=== PATIENT | female | born 1975 | race African-American/Black ===

== ENCOUNTER 2016-08-22 15:05 | Emergency (ER) | payer OTHER ==
[2016-08-22 15:19] VITALS: TEMP 98.2; BMI 46.7
[2016-08-22] MEDS ORDERED: predniSONE 20 MG TABLET (UD) PO ONE (17:13)
[2016-08-22] MEDS ORDERED: ALBUTEROL SO4 2.5/IPRATROPIUM 0.5 INH SOL 3 ML VIAL.NEB. NEB ONE (17:13)
--- NOTE | 2016-08-22 17:14 | PDOC ---
History of Present Illness - General History Source: Patient Exam Limitations: No Limitations - History of Present Illness Initial Comments: 08/22/16 17:21 Patient is a 41 year old female with a PMHx of Schizoaffective disorder who presents to the ED complaining of shortness of breath when she walks short distances associated with a productive cough with white sputum, rhinorrhea, and wheezing that began yesterday. Patient states today as she was going from the house to her car she felt extremely short of breath, which prompted this ED visit. Patient denies any history of asthma or COPD but does state that she has bronchitis almost every year around the winter season. She denies chest pain, palpitations, headache She denies fever, chills, nausea, vomiting She denies abdominal pain, diarrhea, constipation PMHx: Schizoaffective disorder PSHx: None Allergies: None Social: Denies alcohol use or drug use. (+) 6 cigarettes a day for 20+ years Family: (+) father-DMII PCP:Christopher Rutherford <[place] Downey - Last Filed: 08/22/16 17:50> <Valery Yoon - Last Filed: 08/22/16 18:40> - General Chief Complaint: Cold Symptoms Stated Complaint: SOB Time Seen by Provider: 08/22/16 16:24 Past History - Past Medical History Anemia: No Asthma: No Cancer: No Cardiac Disorders: No CVA: No COPD: No CHF: No Dementia: No Diabetes: No GI Disorders: No Disorders: No HTN: No Hypercholesterolemia: No Liver Disease: No Psychiatric Problems: Yes (depression/anxiety schioeffective disorder) Suicide Attempt (Hx): No Seizures: No Thyroid Disease: No - Reproductive History (#): 8 Para: 2 Cervical CA: No Dysfunctional Uterine Bleeding: No Ectopic : No Endometrial CA: No Polycystic Ovaries: No Therapeutic (s) & number: Yes (x4) Tubal Ligation: No Spontaneous : 2 - Immunization History Immunization Up to Date: No - Psycho/Social/Smoking Cessation Hx Anxiety: No Suicidal Ideation: No Smoking Status: Yes Smoking History: Current every day smoker Have you smoked in the past 12 months: Yes Number of Cigarettes Smoked Daily: 5 Information on smoking cessation initiated: No 'Breaking Loose' booklet given: 07/28/15 Hx Alcohol Use: No Drug/Substance Use Hx: No Substance Use Type: None <[place] - Last Filed: 08/22/16 17:50> <Valery Yoon - Last Filed: 08/22/16 18:40> - Past Medical History Allergies/Adverse Reactions: Allergies Allergy/AdvReac Type Severity Reaction Status Date / Time No Known Allergies Allergy Verified 08/22/16 15:16 Home Medications: Ambulatory Orders Aripiprazole [Abilify -] 15 mg PO HS 02/01/13 Fluphenazine HCl [Prolixin -] 5 mg PO HS 07/28/15 Albuterol Sulfate Inhaler - [Ventolin Hfa Inhaler -] 1 - 2 inh PO QID #1 inhaler 08/22/16 Methylprednisolone [Medrol Dose Shailesh] 4 mg PO ASDIR #21 tablet 08/22/16 Review of Systems - Review of Systems Constitutional: No: Chills, Diaphoresis, Fever, Night Sweats, Weakness HEENTM: No: Blurred Vision, Double Vision, Nose Congestion, Throat Pain Respiratory: Yes: Cough, Shortness of Breath, SOB with Exertion, Wheezing, Productive cough. No: Orthopnea, Hemoptysis Cardiac (ROS): No: Chest Pain, Edema, Lightheadedness, Palpitations, Syncope ABD/GI: No: Diarrhea, Nausea, Vomiting, Abdominal cramping : No: Burning, Dysuria, Discharge Musculoskeletal: No: Back Pain, Joint Pain Integumentary: No: Bruising, Erythema Neurological: No: Headache, Numbness, Paresthesia, Tingling, Dizziness Psychiatric: Yes: Emotional Problems Endocrine: No: Intolerance to Cold, Intolerance to Heat Hematologic/Lymphatic: Yes: Lymph Node Abnormalities. No: Anemia, Blood Clots <[place] Doweny - Last Filed: 08/22/16 17:50> *Physical Exam - Vital Signs Last Vital Signs Temp Pulse Resp BP Pulse Ox 98.2 F 94 H 20 135/81 98 08/22/16 15:16 08/22/16 15:16 08/22/16 15:16 08/22/16 15:16 08/22/16 15:16 - Physical Exam General Appearance: Yes: Obese, Other (awake, alert, and in no acute distress ) HEENT: positive: Pharynx Normal Neck: positive: Trachea midline, Normal Thyroid Respiratory/Chest: positive: Wheezing (bilateral lung bases ) Cardiovascular: positive: Regular Rhythm, Regular Rate, S1, S2. negative: Edema , JVD Gastrointestinal/Abdominal: positive: Normal Bowel Sounds. negative: Guarding, Rebound, Tenderness Extremity: positive: Normal Capillary Refill Integumentary: positive: Normal Color Neurologic: positive: Fully Oriented, Alert, Normal Mood/Affect, Normal Response , Motor Strength 5/5 <[place] Downey - Last Filed: 08/22/16 17:50> - Vital Signs Last Vital Signs Temp Pulse Resp BP Pulse Ox 98.2 F 94 H 20 135/81 98 08/22/16 15:16 08/22/16 15:16 08/22/16 15:16 08/22/16 15:16 08/22/16 15:16 <Valery Yoon - Last Filed: 08/22/16 18:40> ED Treatment Course - ADDITIONAL ORDERS Additional order review: Laboratory Results 08/22/16 16:39 Urine HCG, Qual Negative - RADIOLOGY Radiology Studies Ordered: Category Date Time Status CHEST PA & LAT [RAD] Stat Radiology 08/22/16 16:33 Ordered <[place] Downey - Last Filed: 08/22/16 17:50> - ADDITIONAL ORDERS Additional order review: Laboratory Results 08/22/16 16:39 Urine HCG, Qual Negative - Medications Given in the ED: ED Medications Discontinued Medications Generic Name Dose Route Start Last Admin Trade Name Freq PRN Reason Stop Dose Admin Albuterol/Ipratropium 3 amp 08/22/16 17:13 08/22/16 17:28 Duoneb - NEB 08/22/16 17:14 3 amp ONCE ONE Administration Prednisone 60 mg 08/22/16 17:13 08/22/16 17:28 Deltasone - PO 08/22/16 17:14 60 mg ONCE ONE Administration <Valery Yoon - Last Filed: 08/22/16 18:40> Medical Decision Making - Medical Decision Making 08/22/16 17:41 Patient is a 41 year old female with a PMHx of Schizoaffective disorder who presents to the ED complaining of shortness of breath worse on exertion, productive cough with white sputum, rhinorrhea, and wheezing. Differential diagnosis include but not limited to Asthma exacerbation, COPD exacerbation, Pneumonia, Influenza, URI. ED Course and Treatment -Influenza Swab -Chest x-ray -3 DuoNebs -Prednisone 60mg 08/22/16 17:50 -Patient had one DuoNeb treatment and a dose of prednisone and reports her symptoms are much better -Will give second amp of DuoNeb -Case endorsed to Dr. Yoon <[place] Downey - Last Filed: 08/22/16 17:50> *DC/Admit/Observation/Transfer <[place] Downey - Last Filed: 08/22/16 17:50> <Valery Yoon - Last Filed: 08/22/16 18:40> Diagnosis at time of Disposition: Asthma Qualifiers: Asthma severity: mild intermittent Asthma complication type: uncomplicated Qualified Code(s): J45.20 - Mild intermittent asthma, uncomplicated - Discharge Dispostion Disposition: HOME Condition at time of disposition: Stable - Prescriptions Prescriptions: Methylprednisolone [Medrol Dose Shailesh] 4 mg PO ASDIR #21 tablet Albuterol Sulfate Inhaler - [Ventolin Hfa Inhaler -] 1 - 2 inh PO QID #1 inhaler - Patient Instructions Printed Discharge Instructions: DI for Asthma -- Adult Additional Instructions: please picker your medications at [facility]
[2016-08-22 18:48] VITALS: BP 130/77; PULSE 91
== END 2016-08-22 18:48 | disposition home or self-care (01) ==
LOC: JER 15:05
PROC: 3E0F7GC Introduction of Other Therapeutic Substance into Respiratory Tract, Via Natural or Artificial Opening (ICD-10-PCS; principal; 2016-08-22)
DX: J45.20 Mild intermittent asthma, uncomplicated (principal)
CPT/HCPCS: 71020-TC; 84703; 94640; 99282-25

== ENCOUNTER 2018-05-18 22:13 | Emergency (ER) | payer OTHER ==
[2018-05-18 22:24] VITALS: BP 112/71; PULSE 79; TEMP 98.2; BMI 49.4
[2018-05-18] MEDS ORDERED: ALBUTEROL SO4 2.5/IPRATROPIUM 0.5 INH SOL 3 ML VIAL.NEB. NEB ONE (22:59)
--- NOTE | 2018-05-18 23:00 | PDOC ---
History of Present Illness - General Chief Complaint: Asthma Stated Complaint: ASTHMA Time Seen by Provider: 05/18/18 22:52 History Source: Patient Exam Limitations: No Limitations - History of Present Illness Initial Comments: 05/18/18 22:53 This is a 43 YOF with h/o bronchitis, asthma/COPD, and schizoaffective disorder p/w shortness of breath and productive cough for the past 3 days, worse tonight despite using Albuterol MDI and Symbicort MDI. She explains that her children were all sick with similar symptoms prior to her illness. She initially had a subjective fever 3 days ago but this resolved with Motrin and has not recurred. She additionally notes mild nausea and diarrhea, but denies headache, chest pain , abdominal pain, dysuria, rash, leg pain/swelling, or other symptoms. Past History - Past Medical History Allergies/Adverse Reactions: Allergies Allergy/AdvReac Type Severity Reaction Status Date / Time No Known Allergies Allergy Verified 05/18/18 22:24 Home Medications: Ambulatory Orders Aripiprazole [Abilify -] 15 mg PO HS 02/01/13 Fluphenazine HCl [Prolixin -] 5 mg PO HS 07/28/15 Albuterol Sulfate Inhaler - [Ventolin Hfa Inhaler -] 1 - 2 inh PO QID #1 inhaler 08/22/16 Methylprednisolone [Medrol Dose Shailesh] 4 mg PO ASDIR #21 tablet 08/22/16 Anemia: No Asthma: Yes Cancer: No Cardiac Disorders: No CVA: No COPD: No CHF: No Dementia: No Diabetes: Yes GI Disorders: No Disorders: No HTN: No Hypercholesterolemia: No Liver Disease: No Psychiatric Problems: Yes (depression/anxiety schioeffective disorder) Seizures: No Thyroid Disease: No - Reproductive History (#): 8 Para: 2 Cervical CA: No Dysfunctional Uterine Bleeding: No Ectopic : No Endometrial CA: No Polycystic Ovaries: No Therapeutic (s) & number: Yes (x4) Tubal Ligation: No Spontaneous : 2 - Immunization History Immunization Up to Date: No - Suicide/Smoking/Psychosocial Hx Smoking Status: Yes Smoking History: Current every day smoker Have you smoked in the past 12 months: Yes Number of Cigarettes Smoked Daily: 10 Information on smoking cessation initiated: No 'Breaking Loose' booklet given: 07/28/15 Hx Alcohol Use: No Drug/Substance Use Hx: No Substance Use Type: None Review of Systems - Review of Systems Able to Perform ROS?: Yes Constitutional: Yes: Fever (resolved). No: Chills, Unexplained wgt Loss HEENTM: No: Nose Congestion, Throat Pain Respiratory: Yes: Cough, Shortness of Breath, Wheezing, Productive cough Cardiac (ROS): Yes: Lightheadedness (mild). No: Chest Pain, Palpitations, Syncope ABD/GI: Yes: Diarrhea (mild), Nausea (mild). No: Constipated : No: Burning, Dysuria Musculoskeletal: No: Back Pain, Neck Pain Integumentary: No: Bruising, Rash Neurological: No: Headache, Numbness, Tingling, Weakness, Dizziness Endocrine: No: Unexplained Weight Gain, Unexplained Weight Loss *Physical Exam - Vital Signs Last Vital Signs Temp Pulse Resp BP Pulse Ox 98.2 F 79 18 112/71 97 05/18/18 22:21 05/18/18 22:21 05/18/18 22:21 05/18/18 22:21 05/18/18 22:21 05/18/18 23:10 GENERAL: nontoxic and well-appearing, nourished, A/Ox4, no acute distress, speaking in full sentences, answers questions appropriately, accompanied by adjunct physics instructor at bedside, occasional wet-sounding cough HEENT: PERRLA, EOMI, moist mucous membranes, no posterior pharyngeal erythema, no tonsillar swelling or exudates, no cervical lymphadenopathy NECK: No midline ttp, no spinal stepoff or deformity, full ROM, supple CARDIOVASCULAR: Regular rate and rhythm, normal S1S2, MGR, radial and DP pulses 2+ and symmetric, capillary refill <2 seconds, extremities warm and well- perfused Chest wall: Normal appearance, no rash, no bruising, no costal stepoff or deformity, nontender to compression LUNGS/RESPIRATORY: No respiratory distress, normal and symmetric chest movements during respirations, lungs with diffuse crackles that clear with coughing, slightly diminished breath sounds bilaterally, slight wheezes, equal breath sounds, no cyanosis, no nail clubbing GI/ABDOMEN: Normal symmetric appearance, normoactive bowel sounds, soft, no tenderness to palpation, no midline pulsatile masses, no palpated organomegaly EXTREMITIES: distal pulses 2+, warm and well-perfused, no LE edema SKIN: Warm and dry, no pallor, no jaundice, no bruising, no rash, no skin breakdown, no cuts, no lesions NEUROLOGICAL: CN II-XII grossly intact, ambulating with normal gait, moving all extremities, 5/5 strength proximally and distally, no facial droop, no decreased sensation Medical Decision Making - Medical Decision Making 05/18/18 23:21 Pt p/w SOB and cough. Exam: As noted in Physical Exam section. DDX IBNLT: bronchitis, COPD, asthma, PNA, CHF, other lung disease, viral URI, laryngitis, tracheitis, etc. W/U ordered: CXR EKG CBCD CMP Mg Phos Blood gas TX ordered: DuoNebs Decadron Azithromycin EKG: Reviewed; results as noted in ECG Review section. CXR: Labs: Reassessment: Repeat VS: DISCHARGE CURB-65 and PSI suggest the Pt may be appropriate for outpatient management. Workup is not concerning for emergency-level pathology at this time. The decision for disposition is carefully considered with the Pt in shared decision making. The Pt has gotten significant relief of symptoms while in the ED. They are appropriate for discharge with close outpatient follow up. The Pt is comfortable with this plan and will follow up with their primary care provider in 1-3 days. They will take Motrin and/or Tylenol for pain. Specific return precautions are discussed and they will come back to the ER if necessary. *DC/Admit/Observation/Transfer Diagnosis at time of Disposition: Bronchitis - Referrals Referrals: Christopher Rutherford MD [Primary Care Provider] - - Patient Instructions Printed Discharge Instructions: DI for Acute Bronchitis Additional Instructions: YOU WERE SEEN IN THE ER FOR BRONCHITIS. WE DID A CHEST X-RAY, AND THE RESULTS SUGGEST THAT YOU HAVE BRONCHITIS THAT NEEDS TO BE TREATED WITH ANTIBIOTICS. WE GAVE YOU MEDICATIONS FOR YOUR SYMPTOMS, AND A DOSE OF ANTIBIOTICS HERE IN THE ER. AFTER OUR ASSESSMENT, WE DO NOT BELIEVE YOU ARE HAVING A MEDICAL EMERGENCY AT THIS TIME, AND WE BELIEVE YOU ARE SAFE TO GO HOME. PLEASE IT SUPPORT CONSULTANT YOUR PRESCRIPTION FOR ANTIBIOTICS FROM YOUR PHARMACY AND TAKE THEM PRESCRIBED. PLEASE FOLLOW UP WITH YOUR PRIMARY CARE PROVIDER IN 1-3 DAYS. CALL THEIR CLINIC SOON POSSIBLE, TELL THEM YOU WERE SEEN IN THE ER FOR BRONCHITIS, AND TELL THEM YOU NEED AN APPOINTMENT. IF YOU HAVE ANY NEW OR WORSENING SYMPTOMS, PLEASE COME BACK TO THE ER AT ANY TIME (24 HOURS A DAY), ESPECIALLY FOR INABILITY TO BREATHE, WORSENING CHEST PAIN, FEVER, FAINTING, OR OTHER SYMPTOMS YOU CANNOT CONTROL WITH [id number] MEDICATIONS AND YOUR ANTIBIOTIC. IF YOU ARE HAVING SEVERE OR LIFE THREATENING SYMPTOMS, OR SYMPTOMS THAT MAKE IT UNSAFE TO DRIVE OR HAVE SOMEONE DRIVE YOU, PLEASE CALL 911. - Post Discharge Activity
--- NOTE | 2018-05-18 23:01 | PDOC ---
Attending Attestation - Resident Resident Name: Gregorio Arreguin - ED Attending Attestation I have performed the following: I have examined & evaluated the patient, The case was reviewed & discussed with the resident, I agree w/resident's findings & plan - HPI HPI: 05/19/18 00:18 The patient is a 43 year old female, with a significant past medical history of bronchitis, asthma, COPD, and schizoaffective disorder, who presents to the emergency department with, 3 days of worsening shortness of breath. She reports using Albuterol MDI and Symbicort MDI, without relief. Patient is positive for sick contacts (her children). She denies recent fevers, chills, headache or dizziness. She denies recent nausea, vomit, diarrhea or constipation. She denies recent dysuria, frequency, urgency or hematuria. She denies recent chest pain. Allergies: NKA Social history: 6 cigarettes a day for 20+ years. Denies EtOH use and recreational drug use. Primary Care Physician: Dr. Rutherford <Carlo Costa - Last Filed: 05/19/18 00:18> - Physicial Exam PE: 05/19/18 02:02 Agree with resident exam. Patient is in no distress and is speaking in complete sentences. + scattered wheezes at the bases on my exam with good air entry. - Medical Decision Making 05/19/18 02:03 Pt presents to the ED complaining of cough with fever that has now resolved and wheezing and shortness of breath that are consistent with prior episodes of bronchitis. REsolved in the ED after nebs and steroids. Will check CXR to evaluate for PNA and likely discharge if cxr is negative. <Marce Palacios - Last Filed: 05/19/18 02:06> Attestations - Attestations 05/19/18 00:18 Documentation prepared by Carlo Costa, acting as medical accounting clerk for Marce Palacios MD. <Carlo Costa - Last Filed: 05/19/18 00:18>
--- NOTE | 2018-05-19 01:02 | PDOC ---
*Physical Exam - Vital Signs Last Vital Signs Temp Pulse Resp BP Pulse Ox 98.2 F 79 18 112/71 97 05/18/18 22:21 05/18/18 22:21 05/18/18 22:21 05/18/18 22:21 05/18/18 22:21 ED Treatment Course - ADDITIONAL ORDERS Additional order review: Laboratory Results 05/19/18 00:22 Urine HCG, Qual Negative Medical Decision Making - Medical Decision Making 05/19/18 01:01 Pt with negative Urine test. To get CXR PA/Lat Pt to get duonebs as well 05/19/18 02:02 Will also give pt 40 mg PO prednisone 05/19/18 02:10 CXR with no acute pathology Pt feeling better after duonebs Pt to be discharged with prednisone 40 mg po x4 days. Pt to f/u with PCP within 1 week. To come back to ER if she has worsening of current symptoms or onset of new concerning symptoms. *DC/Admit/Observation/Transfer Diagnosis at time of Disposition: Bronchitis - Discharge Dispostion Disposition: HOME Condition at time of disposition: Stable Decision to Admit order: No - Referrals Referrals: Christopher Rutherford MD [Primary Care Provider] - - Patient Instructions Printed Discharge Instructions: Asthma -- Adult Additional Instructions: Follow up with your primary care physician within 1 week. Take your prednisone daily for 4 more days (40 mg per day). If you develop worsening of your current symptoms or new concerning symptoms come back to the ER. - Post Discharge Activity
[2018-05-19] MEDS ORDERED: ALBUTEROL SO4 2.5/IPRATROPIUM 0.5 INH SOL 3 ML VIAL.NEB. NEB ONE (01:06)
[2018-05-19] MEDS ORDERED: predniSONE 20 MG TABLET (UD) PO ONE (02:01)
== END 2018-05-19 02:38 | disposition home or self-care (01) ==
LOC: JER 22:13
PROC: 3E0F7GC Introduction of Other Therapeutic Substance into Respiratory Tract, Via Natural or Artificial Opening (ICD-10-PCS; principal; 2018-05-18)
DX: J40 Bronchitis, not specified as acute or chronic (principal); J45.909 Unspecified asthma, uncomplicated; J44.9 Chronic obstructive pulmonary disease, unspecified; F25.9 Schizoaffective disorder, unspecified
CPT/HCPCS: 71046-TC-FY; 84703; 94640; 99281-25; J7620

== ENCOUNTER 2019-01-31 12:27 | Emergency (ER) | payer OTHER ==
[2019-01-31 12:59] VITALS: TEMP 98.1; BMI 42.9
[2019-01-31] MEDS ORDERED: SODIUM CHLORIDE 1,000 ML IV STA (14:38)
[2019-01-31 15:54] LABS: BASO % 0.7 % (0-2.0); EOS % 1.5 % (0-4.5); HEMATOCRIT 40.3 % (32.4-45.2); HEMOGLOBIN 12.9 GM/dL (10.7-15.3); LYMPH % 27.8 % (8-40); MCH 27.5 pg (25.7-33.7); MCHC 32.1 g/dl (32.0-36.0); MEAN CELL VOLUME 85.7 fl (80-96); MEAN PLT VOLUME 7.7 fl (7.5-11.1); MONO % 5.7 % (3.8-10.2); NEUT % 64.3 % (42.8-82.8); PLATELET COUNT 354 K/MM3 (134-434); RDW 16.3 % (11.6-15.6); WHITE BLOOD COUNT 11.9 K/mm3 (4.0-10.0)
[2019-01-31 16:09] LABS: VENOUS PC02 40.7 mmHg (41-51); VENOUS PH 7.42 (7.31-7.41); VENOUS PO2 34.9 mmHg (30-40)
[2019-01-31 16:24] LABS: ALBUMIN 3.5 g/dl (3.4-5.0); ALK PHOS 110 U/L (45-117); ANION GAP 6 MMOL/L (8-16); BILIRUBIN,TOTAL 0.3 mg/dL (0.2-1); BLOOD UREA NITROGEN 8.6 mg/dL (7-18); CHLORIDE 103 mmol/L (98-107); CO2 27 mmol/L (21-32); POTASSIUM 4.3 mmol/L (3.5-5.1); SGOT/AST 14 U/L (15-37); SGPT/ALT 25 U/L (13-61); SODIUM 136 mmol/L (136-145)
[2019-01-31 16:29] LABS: GLUCOSE,RANDOM 349 mg/dL (74-106)
[2019-01-31 16:49] LABS: ACETONE SERUM NEGATIVE (NEGATIVE)
--- NOTE | 2019-01-31 16:56 | PDOC ---
History of Present Illness - General Chief Complaint: Blood Sugar Problem Stated Complaint: SENT BY PCP Time Seen by Provider: 01/31/19 14:35 History Source: Patient Exam Limitations: No Limitations - History of Present Illness Initial Comments: 01/31/19 15:00 43 y/o female presents presents to the ED for evaluation of elevated glucose. Patient was at her primary care's office and had a glucose reading of 438. Patient has no localized abdominal pain, increase in thirst, increased urination fever, chills urinary complaints or cough. Patient does state ran out of her metformin a few weeks ago and went there for a refill today but due to her elevated glucose was sent to the emergency room for further evaluation. Timing/Duration: unsure Associated Symptoms: reports: denies symptoms Past History - Travel Traveled outside of the country in the last 30 days: No Close contact w/someone who was outside of country & ill: No - Past Medical History Allergies/Adverse Reactions: Allergies Allergy/AdvReac Type Severity Reaction Status Date / Time No Known Allergies Allergy Verified 01/31/19 12:59 Home Medications: Ambulatory Orders Aripiprazole [Abilify -] 15 mg PO HS 02/01/13 Fluphenazine HCl [Prolixin -] 5 mg PO HS 07/28/15 Albuterol Sulfate Inhaler - [Ventolin Hfa Inhaler -] 1 - 2 inh PO QID PRN Metformin HCl [Glucophage] 500 mg PO BID #60 tablet 01/31/19 Anemia: No Asthma: Yes Cancer: No Cardiac Disorders: No CVA: No COPD: No CHF: No Dementia: No Diabetes: Yes GI Disorders: No Disorders: No HTN: No Hypercholesterolemia: No Liver Disease: No Psychiatric Problems: Yes (depression/anxiety schioeffective disorder) Seizures: No Thyroid Disease: No - Reproductive History (#): 8 Para: 2 Cervical CA: No Dysfunctional Uterine Bleeding: No Ectopic : No Endometrial CA: No Polycystic Ovaries: No Therapeutic (s) & number: Yes (x4) Tubal Ligation: No Spontaneous : 2 - Immunization History Immunization Up to Date: No - Suicide/Smoking/Psychosocial Hx Smoking Status: Yes Smoking History: Never smoked Have you smoked in the past 12 months: No Number of Cigarettes Smoked Daily: 10 Information on smoking cessation initiated: No 'Breaking Loose' booklet given: 07/28/15 Hx Alcohol Use: No Drug/Substance Use Hx: No Substance Use Type: None Patient Lives Alone: No Lives with/in: spouse/SO Review of Systems - Review of Systems Able to Perform ROS?: Yes Constitutional: No: Symptoms Reported HEENTM: No: Symptoms Reported Respiratory: No: Symptoms reported Cardiac (ROS): No: Symptoms Reported ABD/GI: No: Symptoms Reported : No: Symptoms Reported Musculoskeletal: No: Symptoms Reported Integumentary: No: Symptoms Reported Neurological: No: Symptoms reported Endocrine: No: Symptoms Reported *Physical Exam - Vital Signs Last Vital Signs Temp Pulse Resp BP Pulse Ox 98.1 F 80 18 119/74 96 01/31/19 12:56 01/31/19 12:56 01/31/19 12:56 01/31/19 12:56 01/31/19 12:56 - Physical Exam General Appearance: Yes: Nourished, Appropriately Dressed. No: Apparent Distress Neck: positive: Supple Respiratory/Chest: positive: Lungs Clear, Normal Breath Sounds. negative: Respiratory Distress, Accessory Muscle Use Cardiovascular: positive: Regular Rhythm, Regular Rate. negative: Murmur Gastrointestinal/Abdominal: positive: Soft. negative: Tenderness Integumentary: positive: Normal Color, Warm, Moist Neurologic: positive: Motor Strength 5/5 (ambulatory) ED Treatment Course - LABORATORY CBC & Chemistry Diagram: 01/31/19 15:36 01/31/19 15:36 - ADDITIONAL ORDERS Additional order review: Laboratory Results 01/31/19 01/31/19 15:53 15:36 VBG pH 7.42 H POC VBG pCO2 40.7 L POC VBG pO2 34.9 VBG HCO3 25.9 VBG O2 Sat (Farideh) 67.1 L VBG Base Excess 1.8 Sodium 136 Potassium 4.3 Chloride 103 Carbon Dioxide 27 Anion Gap 6 L BUN 8.6 Creatinine 1.0 Est GFR (CKD-EPI)AfAm 79.91 Est GFR (CKD-EPI)NonAf 68.95 Random Glucose 349 H* Calcium 9.0 Total Bilirubin 0.3 AST 14 L ALT 25 Alkaline Phosphatase 110 Total Protein 7.0 Albumin 3.5 Acetone, Qual Negative L 01/31/19 15:36 RBC 4.70 MCV 85.7 MCHC 32.1 RDW 16.3 H MPV 7.7 Neutrophils % 64.3 Lymphocytes % 27.8 D Monocytes % 5.7 Eosinophils % 1.5 Basophils % 0.7 Medical Decision Making - Medical Decision Making 01/31/19 15:58 CC:Sent From PCP for evaluation of elevated glucose and not being on her metformin for approximately 3 weeks Exam: Vital signs stable, no acute findings Plan: Labs, IV fluids, urine 01/31/19 16:59 Laboratory Tests 01/31/19 01/31/19 01/31/19 15:36 15:36 15:53 WBC 11.9 H Hgb 12.9 Hct 40.3 RDW 16.3 H Neutrophils % 64.3 VBG pH 7.42 H POC VBG pCO2 40.7 L POC VBG pO2 34.9 VBG HCO3 25.9 VBG O2 Sat (Farideh) 67.1 L VBG Base Excess 1.8 Sodium 136 Potassium 4.3 Chloride 103 Carbon Dioxide 27 Anion Gap 6 L BUN 8.6 Creatinine 1.0 Est GFR (CKD-EPI)AfAm 79.91 Est GFR (CKD-EPI)NonAf 68.95 Random Glucose 349 H* Calcium 9.0 Total Bilirubin 0.3 AST 14 L ALT 25 Alkaline Phosphatase 110 Total Protein 7.0 Albumin 3.5 Acetone, Qual Negative L *DC/Admit/Observation/Transfer Diagnosis at time of Disposition: Blood sugar increased - Discharge Dispostion Disposition: HOME - Prescriptions Prescriptions: Metformin HCl [Glucophage] 500 mg PO BID #60 tablet - Referrals Referrals: Christopher Rutherford MD [Primary Care Provider] - - Patient Instructions - Post Discharge Activity
[2019-01-31 17:20] LABS: URINE APPEARANCE CLEAR; URINE COLOR YELLOW
[2019-01-31 17:21] LABS: URINE BILIRUBIN NEGATIVE (NEGATIVE)
[2019-01-31 17:22] LABS: URINE GLUCOSE (UA) 3+ (NEGATIVE); URINE KETONE NEGATIVE (NEGATIVE)
[2019-01-31 17:23] LABS: PH,URINE 5.5 (5.0-8.0); URINE LEUK ESTERASE NEGATIVE (NEGATIVE); URINE NITRITE NEGATIVE (NEGATIVE); URINE PROTEIN NEGATIVE (NEGATIVE)
[2019-01-31 18:11] VITALS: BP 129/82; PULSE 67
== END 2019-01-31 18:11 | disposition home or self-care (01) ==
LOC: JER 12:27
PROC: 3E0337Z Introduction of Electrolytic and Water Balance Substance into Peripheral Vein, Percutaneous Approach (ICD-10-PCS; principal; 2019-01-31)
DX: E11.65 Type 2 diabetes mellitus with hyperglycemia (principal); Z79.84 Long term (current) use of oral hypoglycemic drugs; Z91.14 Patient's other noncompliance with medication regimen
CPT/HCPCS: 36415; 80053; 81003; 82009; 82803; 85025; 87086; 99283-25; J7030

== ENCOUNTER 2019-04-02 03:26 | Inpatient (IN) | payer OTHER ==
[2019-04-02] MEDS ORDERED: ALBUTEROL SO4 2.5/IPRATROPIUM 0.5 INH SOL 3 ML VIAL.NEB. NEB ONE ×6 (04:04→22:39)
--- NOTE | 2019-04-02 05:14 | PDOC ---
Attending Attestation - Resident Resident Name: Moreno Lopes - ED Attending Attestation I have performed the following: I have examined & evaluated the patient, The case was reviewed & discussed with the resident, I agree w/resident's findings & plan, Exceptions are as noted - HPI HPI: 04/02/19 05:31 44yo female with sob x 2 days. Pt follows with dr. rutherford, states congestion, cough, sob since february - but worsened over the last 2 days. States using her inhalers at home - bid usage of her albuterol pump without relief. Subjective fever at home. Pt states cough is nonproductive. Pt denies sore throat. States sick contacts at home - everyone has a URI at home. Pt denies abd pain. No n/v/ d. No dysuria. NO LE swelling. No recent travel. States her chest feels tight and she feels sob. - Physicial Exam PE: 04/02/19 05:33 Gen: aaox3, mild resp distress, mild tachypnea Heart: +s1s2 tachy lungs: wheezing b/l apices and diminished bs b/l bases abd: soft, nt/nd +bs ext: no c/c/e - Medical Decision Making 04/02/19 05:34 a/p: 44yo female with sob x 2 days -hx of RAD -given 1 neb upon arrival - feels better, but pulse ox 92% on 2L NC -pt does not wear o2 at home -last Dr. Rutherford appt was February where he ordered cxr and labs, which she did not have done -will send labs, ekg, cxr -will continue nebs -will add steroids -will eval for pna - though no course bs auscultated -will monitor and reassess 04/02/19 08:28 cxr clear 04/02/19 08:29 labs reviewed pt pulse ox still 91%ra ambulatory with a steady gait in the ED on 2L nc pulse ox 94-95% will need admission 04/02/19 09:[address] Forde who accepts pt to service requests pulse ox monitoring *DC/Admit/Observation/Transfer Diagnosis at time of Disposition: COPD exacerbation, Asthma exacerbation - Discharge Dispostion Condition at time of disposition: Guarded Decision to Admit order: Yes - Referrals Referrals: Christopher Rutherford MD [Primary Care Provider] - - Patient Instructions Printed Discharge Instructions: Serious Ways to Stop Smoking, Tips to Help You Stop Smoking, DI for Asthma -- Adult, DI for Chronic Obstructive Pulmonary Disease, Reasons to Quit Smoking - Post Discharge Activity Forms/Work/School Notes: Back to Work Heart Score/ECG Review - ECG Intrepretation Comment:: 04/02/19 05:39 sinus at 93, nl axis, nl interval, no acute st/t wave findings
--- NOTE | 2019-04-02 05:17 | PDOC ---
History of Present Illness - General Chief Complaint: Shortness of Breath Stated Complaint: DIFFICULTY BREATHING/ASTHMA Time Seen by Provider: 04/02/19 04:20 History Source: Patient - History of Present Illness Initial Comments: 04/02/19 05:44 Ms. Myrick is a 44 y/o woman with hx COPD, asthma, DM presenting with one day of worsening shortness of breath and dyspnea on exertion. She reports that her shortness of breath began yesterday, and reported onset of cough, rhinorrhea, sore throat, along with dyspnea on exertion. She reports becoming short of breath when walking from the door of her apartment to her car parked on the street in front, and reports that with exertion she feels chest tightness. She reports that normally her symbicort inhaler relieves any respiratory symptoms, but that it had no effect today. She reports that her symptoms today feel similar to her prior COPD exacerbations, and reports that her last azithromycin dose pack was two months ago. She reports that she has several sick contacts at home at the moment, with several people experiences URI symptoms including cough , rhinorrhea, sore throat. She denies any chest pain, fatigue, weakness, confusion, fevers, chills, nausea, vomiting. Past History - Past Medical History Allergies/Adverse Reactions: Allergies Allergy/AdvReac Type Severity Reaction Status Date / Time No Known Allergies Allergy Verified 04/02/19 04:12 Home Medications: Ambulatory Orders Aripiprazole [Abilify -] 15 mg PO HS 02/01/13 Fluphenazine HCl [Prolixin -] 5 mg PO HS 07/28/15 Albuterol Sulfate Inhaler - [Ventolin Hfa Inhaler -] 1 - 2 inh PO QID PRN Metformin HCl [Glucophage] 500 mg PO BID #60 tablet 01/31/19 Anemia: No Asthma: Yes Cancer: No Cardiac Disorders: No CVA: No COPD: No CHF: No Dementia: No Diabetes: Yes GI Disorders: No Disorders: No HTN: No Hypercholesterolemia: No Liver Disease: No Psychiatric Problems: Yes (depression/anxiety schioeffective disorder) Seizures: No Thyroid Disease: No - Reproductive History (#): 8 Para: 2 Cervical CA: No Dysfunctional Uterine Bleeding: No Ectopic : No Endometrial CA: No Polycystic Ovaries: No Therapeutic (s) & number: Yes (x4) Tubal Ligation: No Spontaneous : 2 - Immunization History Immunization Up to Date: No - Suicide/Smoking/Psychosocial Hx Smoking Status: Yes Smoking History: Never smoked Have you smoked in the past 12 months: No Number of Cigarettes Smoked Daily: 10 Information on smoking cessation initiated: No 'Breaking Loose' booklet given: 07/28/15 Hx Alcohol Use: Yes (Social) Drug/Substance Use Hx: No Substance Use Type: None *Physical Exam - Vital Signs Last Vital Signs Temp Pulse Resp BP Pulse Ox 98.4 F 102 H 22 H 135/82 96 04/02/19 03:26 04/02/19 03:26 04/02/19 03:26 04/02/19 03:26 04/02/19 03:26 *DC/Admit/Observation/Transfer - Discharge Dispostion Condition at time of disposition: Fair - Referrals Referrals: Christopher Rutherford MD [Primary Care Provider] - - Patient Instructions - Post Discharge Activity
[2019-04-02] MEDS ORDERED: MAGNESIUM SULF 50% (8.12 MEQ/2 ML-1 GM VIAL) IVPB ONE (05:27)
[2019-04-02] MEDS ORDERED: methylPREDNISolone NA SUCC 125 MG/2 ML VIAL IVPB ONE (05:27)
[2019-04-02] MEDS ORDERED: MAGNESIUM SULF 50% (8.12 MEQ/2 ML-1 GM VIAL) ONE (05:32)
[2019-04-02] MEDS ORDERED: methylPREDNISolone NA SUCC 125 MG/2 ML VIAL ONE (05:32)
[2019-04-02 06:16] LABS: BASO % 0.8 % (0-2.0); EOS % 1.4 % (0-4.5); HEMATOCRIT 35.7 % (32.4-45.2); HEMOGLOBIN 11.8 GM/dL (10.7-15.3); LYMPH % 23.4 % (8-40); MCH 28.3 pg (25.7-33.7); MEAN CELL VOLUME 85.6 fl (80-96); MEAN PLT VOLUME 7.3 fl (7.5-11.1); MONO % 5.4 % (3.8-10.2); PLATELET COUNT 387 K/MM3 (134-434); RBC 4.17 M/mm3 (3.60-5.2); RDW 16.8 % (11.6-15.6); WHITE BLOOD COUNT 10.5 K/mm3 (4.0-10.0)
[2019-04-02 06:44] LABS: ALBUMIN 3.4 g/dl (3.4-5.0); BILIRUBIN,TOTAL 0.2 mg/dL (0.2-1); BLOOD UREA NITROGEN 7.9 mg/dL (7-18); CALCIUM 9.3 mg/dL (8.5-10.1); CREATININE 0.9 mg/dL (0.55-1.3); POTASSIUM 4.1 mmol/L (3.5-5.1)
--- NOTE | 2019-04-02 07:14 | PDOC ---
ED Treatment Course - LABORATORY CBC & Chemistry Diagram: 04/02/19 06:00 04/02/19 06:00 - ADDITIONAL ORDERS Additional order review: Laboratory Results 04/02/19 04/02/19 04/02/19 06:00 06:00 06:00 Sodium 142 Potassium 4.1 Chloride 108 H Carbon Dioxide 28 Anion Gap 6 L BUN 7.9 Creatinine 0.9 Est GFR (CKD-EPI)AfAm 90.13 Est GFR (CKD-EPI)NonAf 77.76 Random Glucose 124 H Calcium 9.3 Total Bilirubin 0.2 AST 16 ALT 19 Alkaline Phosphatase 98 Creatine Kinase Troponin I B-Natriuretic Peptide 18.3 Total Protein 7.0 Albumin 3.4 Serum , Qual Negative 04/02/19 06:00 Sodium Potassium Chloride Carbon Dioxide Anion Gap BUN Creatinine Est GFR (CKD-EPI)AfAm Est GFR (CKD-EPI)NonAf Random Glucose Calcium Total Bilirubin AST ALT Alkaline Phosphatase Creatine Kinase 148 Troponin I < 0.02 B-Natriuretic Peptide Total Protein Albumin Serum , Qual 04/02/19 06:00 RBC 4.17 MCV 85.6 MCHC 33.0 RDW 16.8 H MPV 7.3 L Neutrophils % 69.0 Lymphocytes % 23.4 Monocytes % 5.4 Eosinophils % 1.4 Basophils % 0.8 - Medications Given in the ED: ED Medications Discontinued Medications Generic Name Dose Route Start Last Admin Trade Name Freq PRN Reason Stop Dose Admin Albuterol/Ipratropium 1 amp 04/02/19 05:27 04/02/19 05:30 Duoneb - NEB 04/02/19 05:28 1 amp ONCE ONE Administration Albuterol/Ipratropium 1 amp 04/02/19 05:27 04/02/19 05:43 Duoneb - NEB 04/02/19 05:28 1 amp ONCE ONE Administration Magnesium Sulfate 1 gm 04/02/19 05:27 04/02/19 06:17 Magnesium Sulfate IVPB 04/02/19 05:28 1 gm ONCE ONE Administration Methylprednisolone Sodium Succinate 125 mg 04/02/19 05:27 04/02/19 06:04 Solu-Medrol - IVPB 04/02/19 05:28 125 mg ONCE ONE Administration Medical Decision Making - Medical Decision Making Pt signed out to me by Dr. Lopes, PGY1 EM Night Resident. 44 year old female with PMH COPD, asthma, DM presented to ED for increasing SOB since yesterday associated with nonproductive cough, rhinorrhea, sore throat. Wheezing on prior auscultation. Initial Vital Signs Temp Pulse Resp BP Pulse Ox 98.4 F 102 H 22 H 135/82 96 04/02/19 03:26 04/02/19 03:26 04/02/19 03:26 04/02/19 03:26 04/02/19 03:26 Afebrile. Mild tachycardia. Mild tachypnea. Mild hypertension. No hypoxia on room air. Medications given: Duoneb, solumedrol Imaging pending: CXR EKG performed at 0338: rate 93, regular rhythm, normal axis, normal intervals, no acute ST changes. CBC WBC 10.5 K/mm3 (4.0-10.0) H 04/02/19 06:00 RBC 4.17 M/mm3 (3.60-5.2) 04/02/19 06:00 Hgb 11.8 GM/dL (10.7-15.3) 04/02/19 06:00 Hct 35.7 % (32.4-45.2) 04/02/19 06:00 MCV 85.6 fl (80-96) 04/02/19 06:00 MCH 28.3 pg (25.7-33.7) 04/02/19 06:00 MCHC 33.0 g/dl (32.0-36.0) 04/02/19 06:00 RDW 16.8 % (11.6-15.6) H 04/02/19 06:00 Plt Count 387 K/MM3 (134-434) 04/02/19 06:00 MPV 7.3 fl (7.5-11.1) L 04/02/19 06:00 Absolute Neuts (auto) 7.2 K/mm3 (1.5-8.0) 04/02/19 06:00 Neutrophils % 69.0 % (42.8-82.8) 04/02/19 06:00 Lymphocytes % 23.4 % (8-40) 04/02/19 06:00 Monocytes % 5.4 % (3.8-10.2) 04/02/19 06:00 Eosinophils % 1.4 % (0-4.5) 04/02/19 06:00 Basophils % 0.8 % (0-2.0) 04/02/19 06:00 Nucleated RBC % 0 % (0-0) 04/02/19 06:00 Mild leukocytosis without left shift. No anemia. CMP Sodium 142 mmol/L (136-145) 04/02/19 06:00 Potassium 4.1 mmol/L (3.5-5.1) 04/02/19 06:00 Chloride 108 mmol/L (98-107) H 04/02/19 06:00 Carbon Dioxide 28 mmol/L (21-32) 04/02/19 06:00 Anion Gap 6 MMOL/L (8-16) L 04/02/19 06:00 BUN 7.9 mg/dL (7-18) 04/02/19 06:00 Creatinine 0.9 mg/dL (0.55-1.3) 04/02/19 06:00 Est GFR (CKD-EPI)AfAm 90.13 04/02/19 06:00 Est GFR (CKD-EPI)NonAf 77.76 04/02/19 06:00 Random Glucose 124 mg/dL (74-106) H 04/02/19 06:00 Calcium 9.3 mg/dL (8.5-10.1) 04/02/19 06:00 Total Bilirubin 0.2 mg/dL (0.2-1) 04/02/19 06:00 AST 16 U/L (15-37) 04/02/19 06:00 ALT 19 U/L (13-61) 04/02/19 06:00 Alkaline Phosphatase 98 U/L (45-117) 04/02/19 06:00 Creatine Kinase 148 U/L (26-192) 04/02/19 06:00 Troponin I < 0.02 ng/ml (0.00-0.05) 04/02/19 06:00 B-Natriuretic Peptide 18.3 pg/ml (5-125) 04/02/19 06:00 Total Protein 7.0 g/dl (6.4-8.2) 04/02/19 06:00 Albumin 3.4 g/dl (3.4-5.0) 04/02/19 06:00 Serum , Qual Negative 04/02/19 06:00 No electrolyte abnormalities. No JENIFER. No transaminitis. BNP wnl Troponin undetectable 04/02/19 07:27 Pt assessed, reported SOB much improved, pt was able to sleep comfortably. 04/02/19 08:16 Pt reassessed, sleeping comfortably, reported she feels her breathing is still improved. Pending CXR. 04/02/19 08:33 CXR negative for infiltrate per my and Dr. Morales's read. -Pending official report 04/02/19 08:49 Hypoxia still present on room air. Pt to be admitted for asthma/COPD exacerbation. Medications ordered: Azithromycin 04/02/19 08:52 Official CXR report: Name: [facility] DEPARTMENT OF RADIOLOGY Phys: Anitha Morales DO : 1975 Age: 44 Sex: F [facility] Acct: [id number] Loc: [facility] [address] [facility] Exam Date: 04/02/19 Status: [place] [address] Unit Number: [id number] EXAM#: TYPE/EXAM: RESULT: [id number] RAD/CHEST PA LAT Cough. Chest 2 views. Comparison study May 19, 2018. Mild rotation to the left side. Unremarkable contour of the cardiomediastinal silhouette. The lungs are well aerated without evidence of pulmonary infiltrates atelectasis. No evidence of vascular congestive changes. No bulky hilar adenopathy. No pleural effusion, or pneumothorax is seen. The visualized osseous structures appear intact. Impression. No evidence of active pulmonary disease. Reported By: Luis Anne MD 04/02/19 0846 Pt informed of vitals, and need for admission for COPD/Asthma exacerbation. Pt agrees with plan for care. Dr. Christopher Rutherford paged. 04/02/19 09:32 Dr. Morales spoke with Marisol Forde, who will assume care for the patient. Pending admission. *DC/Admit/Observation/Transfer Diagnosis at time of Disposition: COPD exacerbation, Asthma exacerbation - Discharge Dispostion Condition at time of disposition: Guarded Decision to Admit order: Yes - Referrals Referrals: Christopher Rutherford MD [Primary Care Provider] - - Patient Instructions Printed Discharge Instructions: Serious Ways to Stop Smoking, Tips to Help You Stop Smoking, DI for Asthma -- Adult, DI for Chronic Obstructive Pulmonary Disease, Reasons to Quit Smoking - Post Discharge Activity Forms/Work/School Notes: Back to Work
[2019-04-02] MEDS ORDERED: ALBUTEROL SO4 0.5 % INH SOLN 2.5 MG/0.5 ML VIAL.NEB. NEB ONE (08:44)
[2019-04-02] MEDS ORDERED: AZITHROMYCIN IVPB 500 MG in DEXTROSE 5%-WATER - 250 ML IVPB ONE (08:44)
--- NOTE | 2019-04-02 10:18 | HP ---
Admitting History and Physical - Primary Care Physician PCP: Christopher Rutherford - Admission Chief Complaint: SOB History of Present Illness: ER HISTORY 04/02/19 05:31 44yo female with sob x 2 days. Pt follows with dr. rutherford, states congestion, cough, sob since february - but worsened over the last 2 days. States using her inhalers at home - bid usage of her albuterol pump without relief. Subjective fever at home. Pt states cough is nonproductive. Pt denies sore throat. States sick contacts at home - everyone has a URI at home. Pt denies abd pain. No n/v/ d. No dysuria. NO LE swelling. No recent travel. States her chest feels tight and she feels sob. Spoke with ER attending Examined pt in ER-- had a few days h/o sob and cough with tightness in chest Her father was sick at home She is chronic smoker as well Uses inhalers but had no relief She received nebulizer treatments, Solu-medrol and IV Zithromax States she feels slightly better History Source: Patient Limitations to Obtaining History: No Limitations - Past Medical History ...LMP: 03/14/16 Psych: Yes: Depression Endocrine: Yes: Diabetes Mellitus - Smoking History Smoking history: Never smoked Have you smoked in the past 12 months: No Aproximately how many cigarettes per day: 10 - Alcohol/Substance Use Hx Alcohol Use: Yes (Social) Home Medications - Allergies Allergies/Adverse Reactions: Allergies Allergy/AdvReac Type Severity Reaction Status Date / Time No Known Allergies Allergy Verified 04/02/19 04:12 - Home Medications Home Medications: Ambulatory Orders Aripiprazole [Abilify -] 15 mg PO HS 02/01/13 Fluphenazine HCl [Prolixin -] 5 mg PO HS 07/28/15 Albuterol Sulfate Inhaler - [Ventolin Hfa Inhaler -] 1 - 2 inh PO QID PRN Metformin HCl [Glucophage] 500 mg PO BID #60 tablet 01/31/19 Family Disease History - Family Disease History Family History: Denies Review of Systems - Review of Systems Constitutional: reports: Chills, Fever (subjective fever, chills) Respiratory: reports: Cough, SOB, Wheezing Physical Examination Vital Signs: Vital Signs Temperature 98.4 F 04/02/19 03:26 Pulse Rate 102 H 04/02/19 03:26 Respiratory Rate 22 H 04/02/19 03:26 Blood Pressure 135/82 04/02/19 03:26 O2 Sat by Pulse Oximetry (%) 94 L 04/02/19 04:30 Constitutional: Yes: No Distress, Calm Cardiovascular: Yes: Regular Rate and Rhythm Respiratory: Yes: Diminished, Rhonchi Gastrointestinal: Yes: Normal Bowel Sounds, Soft, Abdomen, Obese. No: Tenderness Edema: No Neurological: Yes: WNL Labs: CBC, BMP 04/02/19 06:00 04/02/19 06:00 Imaging - Results Chest X-ray: Image Reviewed EKG: Image Reviewed Problem List - Problems (1) Diabetes Code(s): E11.9 - TYPE 2 DIABETES MELLITUS WITHOUT COMPLICATIONS (2) Asthma exacerbation Code(s): J45.901 - UNSPECIFIED ASTHMA WITH (ACUTE) EXACERBATION (3) COPD exacerbation Code(s): J44.1 - CHRONIC OBSTRUCTIVE PULMONARY DISEASE W (ACUTE) EXACERBATION (4) Reactive airway disease Code(s): J45.909 - UNSPECIFIED ASTHMA, UNCOMPLICATED Qualifiers: Asthma severity: mild intermittent Asthma complication type: with acute exacerbation Qualified Code(s): J45.21 - Mild intermittent asthma with (acute ) exacerbation Assessment/Plan PLAN Solumedrol nebs Pulmonary eval continue with meds Peak flow measurement will need outpt PFT DVT prophylaxis-- Lovenox sc OOB daily iv Zithromax
[2019-04-02] MEDS ORDERED: ALBUTEROL SO4 2.5/IPRATROPIUM 0.5 INH SOL 3 ML VIAL.NEB. NEB PRN (10:19)
[2019-04-02] MEDS: PANTOPRAZOLE 40 MG TABLET (FP) PO SCH (12:30)
[2019-04-02] MEDS: INSULIN SLIDING SCALE (NOVOLOG) 1 VIAL SQ SCH ×3 (12:30→23:00)
--- NOTE | 2019-04-02 15:25 | CON.PULM ---
Consult Consult Specialty:: PULMONARY Referred by:: Dr Forde Reason for Consultation:: shortness of breath - History of Present Illness Chief Complaint: shortness of breath History of Present Illness: 44yo female with h/o asthma, DM, smoker who was admitted with worsening shortness of breath x 2 days. Reports a nonproductive cough, wheezing and chest tightness. Multiple sick contacts at home. Denies fevesr but with chills. Diagnosed with asthma as child but not hospitalized since childhood and never intubated. Unknown peak flow. She is a current smoker, about 1/2 PPD, started as teenager. - History Source History Provided By: Patient, Medical Record Limitations to Obtaining History: No Limitations - Past Medical History ...LMP: 03/14/16 Psych: Yes: Depression Endocrine: Yes: Diabetes Mellitus - Alcohol/Substance Use Hx Alcohol Use: Yes (Social) - Smoking History Smoking history: Never smoked Have you smoked in the past 12 months: No Aproximately how many cigarettes per day: 10 Home Medications - Allergies Allergies/Adverse Reactions: Allergies Allergy/AdvReac Type Severity Reaction Status Date / Time No Known Allergies Allergy Verified 04/02/19 04:12 - Home Medications Home Medications: Ambulatory Orders Aripiprazole [Abilify -] 15 mg PO HS 02/01/13 Fluphenazine HCl [Prolixin -] 5 mg PO HS 07/28/15 Albuterol Sulfate Inhaler - [Ventolin Hfa Inhaler -] 1 - 2 inh PO QID PRN Metformin HCl [Glucophage] 500 mg PO BID #60 tablet 01/31/19 Review of Systems - Review of Systems Constitutional: reports: Chills, Malaise, Weakness. denies: Fever Eyes: denies: Recent Change in Vision HENT: denies: Nasal Congestion, Throat Pain Neck: denies: Stiffness, Tenderness Cardiovascular: reports: Shortness of Breath. denies: Chest Pain, Palpitations Respiratory: reports: Cough, Exercise Intolerance, SOB on Exertion, Wheezing. denies: Hemoptysis Gastrointestinal: denies: Abdominal Pain, Nausea, Vomiting Genitourinary: denies: Dysuria, Hematuria Neurological: denies: Dizziness, Headache Endocrine: denies: Unexplained Weight Loss Physical Exam Vital Sings: Vital Signs Temperature 98.4 F 04/02/19 08:50 Pulse Rate 85 04/02/19 08:50 Respiratory Rate 20 08/20/19 08:50 Blood Pressure 126/76 04/02/19 08:50 O2 Sat by Pulse Oximetry (%) 94 L 04/02/19 08:50 Constitutional: Yes: Mild Distress Eyes: Yes: Conjunctiva Clear, EOM Intact HENT: Yes: Atraumatic, Normocephalic Neck: Yes: Supple, Trachea Midline Cardiovascular: Yes: Regular Rate and Rhythm Respiratory: Yes: Rhonchi, Wheezes ...Clubbing: No Gastrointestinal: Yes: Normal Bowel Sounds, Soft. No: Tenderness Edema: No Neurological: Yes: Alert, Oriented Labs: CBC, BMP 04/02/19 06:00 04/02/19 06:00 Imaging - Results Chest X-ray: Report Reviewed, Image Reviewed (no infiltrates) Problem List - Problems (1) Asthma exacerbation Code(s): J45.901 - UNSPECIFIED ASTHMA WITH (ACUTE) EXACERBATION (2) COPD exacerbation Code(s): J44.1 - CHRONIC OBSTRUCTIVE PULMONARY DISEASE W (ACUTE) EXACERBATION (3) Diabetes Code(s): E11.9 - TYPE 2 DIABETES MELLITUS WITHOUT COMPLICATIONS Assessment/Plan Acute Asthma/COPD Exacerbation URI DM Smoker - IV medrol - inhaled bronchodilators standing and PRN - O2 to keep SpO2 >90% - monitor peak flow - singulair - outpt PFTs - smoking cessation - glucose control while on systemic steroids - DVT prophylaxis Thank you for this consult Mauro Wilkinson MD
[2019-04-02] MEDS ORDERED: ALBUTEROL SO4 0.083% IH SOL 2.5 MG/3 ML VIAL.NEB. NEB PRN (15:26)
--- NOTE | 2019-04-02 16:05 | EKG ---
Test Reason : Blood Pressure : / mmHG Vent. Rate : 093 BPM Atrial Rate : 093 BPM P-R Int : 154 ms QRS Dur : 088 ms QT Int : 360 ms P-R-T Axes : 077 078 072 degrees QTc Int : 447 ms NORMAL SINUS RHYTHM NORMAL ECG NO PREVIOUS ECGS AVAILABLE Confirmed by MD PIERRE, AKUA ([id number]) on 04/02/2019 4:05:00 PM Referred By: Confirmed By:AKUA JAY MD
[2019-04-02] MEDS: methylPREDNISolone NA SUCC 40 MG/1 ML VIAL IVPUSH SCH ×2 (17:30→23:00)
[2019-04-02] MEDS: ALBUTEROL SO4 2.5/IPRATROPIUM 0.5 INH SOL 3 ML VIAL.NEB. NEB SCH ×2 (17:30→23:00)
[2019-04-02] MEDS: metFORMIN HCL 500 MG TABLET (FP) PO SCH (17:30)
[2019-04-02] MEDS: NICOTINE 14 MG/24 HOURS TOPICAL PATCH TD SCH (20:10)
[2019-04-02] MEDS ORDERED: MONTELUKAST NA 10 MG TABLET ONE (22:39)
[2019-04-02] MEDS ORDERED: methylPREDNISolone NA SUCC 40 MG/1 ML VIAL ONE (22:40)
[2019-04-02] MEDS ORDERED: ARIPiprazole 5 MG TABLET (FP) ONE (22:40)
[2019-04-02] MEDS: MONTELUKAST NA 10 MG TABLET PO SCH (23:00)
[2019-04-02] MEDS: ARIPiprazole 15 MG TABLET PO SCH (23:00)
[2019-04-03] MEDS: NICOTINE 14 MG/24 HOURS TOPICAL PATCH TD SCH ×2 (03:13→11:51)
[2019-04-03] MEDS ORDERED: MELATONIN 5 MG TABLETS PO ONE (05:00)
[2019-04-03] MEDS: metFORMIN HCL 500 MG TABLET (FP) PO SCH ×2 (06:00→17:07)
[2019-04-03] MEDS: INSULIN SLIDING SCALE (NOVOLOG) 1 VIAL SQ SCH ×4 (06:00→22:39)
[2019-04-03] MEDS: methylPREDNISolone NA SUCC 40 MG/1 ML VIAL IVPUSH SCH ×4 (06:00→20:36)
[2019-04-03 08:43] LABS: BASO % 0.2 % (0-2.0); HEMOGLOBIN 11.7 GM/dL (10.7-15.3); LYMPH % 7.9 % (8-40); MCH 27.9 pg (25.7-33.7); MCHC 32.6 g/dl (32.0-36.0); MEAN CELL VOLUME 85.7 fl (80-96); MEAN PLT VOLUME 7.6 fl (7.5-11.1); MONO % 2.6 % (3.8-10.2); NEUT % 89.3 % (42.8-82.8); PLATELET COUNT 425 K/MM3 (134-434); RDW 17.2 % (11.6-15.6); WHITE BLOOD COUNT 18.6 K/mm3 (4.0-10.0)
[2019-04-03 09:09] LABS: ALBUMIN 3.5 g/dl (3.4-5.0); BILIRUBIN,TOTAL 0.1 mg/dL (0.2-1); BLOOD UREA NITROGEN 10.9 mg/dL (7-18); CALCIUM 9.1 mg/dL (8.5-10.1); POTASSIUM 4.4 mmol/L (3.5-5.1); TOT PROT 7.2 g/dl (6.4-8.2)
--- NOTE | 2019-04-03 10:01 | PN ---
Progress Note (short form) - Note Progress Note: Breathing is better but she does get SOB when she ambulates no chest pain has cough with mucus+ Vital Signs - 24 hr 04/02/19 04/02/19 04/03/19 17:24 17:57 06:46 Temperature 97.4 F L 97.5 F L Pulse Rate Pulse Rate [ 104 H 53 L 59 L Apical] Respiratory 14 16 Rate Blood Pressure Blood Pressure 109/82 124/63 128/68 [Right Arm] O2 Sat by Pulse 93 L 95 98 Oximetry (%) 04/03/19 09:26 Temperature 98 F Pulse Rate 96 H Pulse Rate [ Apical] Respiratory 22 H Rate Blood Pressure 125/68 Blood Pressure [Right Arm] O2 Sat by Pulse Oximetry (%) Current Medications Generic Name Dose Route Start Last Admin Trade Name Freq PRN Reason Stop Dose Admin Albuterol Sulfate 1 amp 04/02/19 15:26 Ventolin 0.083% Nebulizer Soln - NEB Q4H PRN SHORT OF BREATH/WHEEZING Albuterol/Ipratropium 1 amp 04/02/19 16:00 04/02/19 23:00 Duoneb - NEB 1 amp RQID LOWELL Administration Aripiprazole 15 mg 04/02/19 22:00 04/02/19 23:00 Abilify PO 15 mg HS LOWELL Administration Enoxaparin Sodium 40 mg 04/03/19 10:00 Lovenox - SQ DAILY LOWELL Fluphenazine HCl 5 mg 04/02/19 22:00 04/02/19 23:00 Prolixin - PO 5 mg HS LOWELL Administration Azithromycin 500 mg in 250 mls @ 250 mls/hr 04/03/19 10:00 Zithromax 500mg Ivpb (Pre-Docked) IVPB DAILY LOWELL Insulin Aspart 1 vial 04/02/19 11:00 04/03/19 06:00 Novolog Vial Sliding Scale - SQ 10 unit ACHS LOWELL Administration Protocol Insulin Detemir 12 units 04/03/19 10:00 Levemir Vial SQ BID LOWELL Metformin HCl 500 mg 04/02/19 16:30 04/03/19 06:00 Glucophage - PO 500 mg BIDI LOWELL Administration Methylprednisolone Sodium Succinate 60 mg 04/02/19 15:00 04/03/19 06:00 Solu-Medrol - IVPUSH 60 mg Q6H-IV LOWELL Administration Montelukast Sodium 10 mg 08/20/19 22:00 04/02/19 23:00 Singulair - PO 10 mg HS LOWELL Administration Nicotine 14 mg 04/02/19 10:30 04/03/19 03:13 Nicoderm Patch - TD 14 mg DAILY LOWELL Administration Pantoprazole Sodium 40 mg 04/02/19 10:30 04/02/19 12:30 Protonix - PO 40 mg DAILY LOWELL Administration Laboratory Results - last 24 hr 04/02/19 04/02/19 04/02/19 12:00 17:18 23:35 WBC RBC Hgb Hct MCV MCH MCHC RDW Plt Count MPV Absolute Neuts (auto) Neutrophils % Lymphocytes % Monocytes % Eosinophils % Basophils % Nucleated RBC % Sodium Potassium Chloride Carbon Dioxide Anion Gap BUN Creatinine Est GFR (CKD-EPI)AfAm Est GFR (CKD-EPI)NonAf POC Glucometer 300 342 266 Random Glucose Calcium Total Bilirubin AST ALT Alkaline Phosphatase Total Protein Albumin 04/03/19 04/03/19 04/03/19 05:23 08:10 08:10 WBC 18.6 H RBC 4.20 Hgb 11.7 Hct 36.0 MCV 85.7 MCH 27.9 MCHC 32.6 RDW 17.2 H Plt Count 425 MPV 7.6 Absolute Neuts (auto) 16.6 H Neutrophils % 89.3 H D Lymphocytes % 7.9 L D Monocytes % 2.6 L Eosinophils % 0.0 D Basophils % 0.2 Nucleated RBC % 0 Sodium 142 Potassium 4.4 Chloride 108 H Carbon Dioxide 23 Anion Gap 12 BUN 10.9 Creatinine 1.0 Est GFR (CKD-EPI)AfAm 79.35 Est GFR (CKD-EPI)NonAf 68.46 POC Glucometer 381 Random Glucose 304 H* Calcium 9.1 Total Bilirubin 0.1 L AST 12 L ALT 19 Alkaline Phosphatase 97 Total Protein 7.2 Albumin 3.5 S1 S2 RRR Lungs decreased breath sounds+, ronchi+ Abd- soft, NT, obese No edema PLAN iv solumedrol same dose standing nebs and prn Add Robitussin Pulmonary eval noted OOB Lovenox sc for DVT prophylaxis Chest CT - no contrast as pt is a smoker Will check A1C- add Levemir BID for elevated sugars Problem List - Problems (1) Diabetes Code(s): E11.9 - TYPE 2 DIABETES MELLITUS WITHOUT COMPLICATIONS (2) Asthma exacerbation Code(s): J45.901 - UNSPECIFIED ASTHMA WITH (ACUTE) EXACERBATION (3) COPD exacerbation Code(s): J44.1 - CHRONIC OBSTRUCTIVE PULMONARY DISEASE W (ACUTE) EXACERBATION (4) Reactive airway disease Code(s): J45.909 - UNSPECIFIED ASTHMA, UNCOMPLICATED Qualifiers: Asthma severity: mild intermittent Asthma complication type: with acute exacerbation
[2019-04-03] MEDS ORDERED: guaiFENesin 200 MG/10 ML 10 ML UNIT-DOSE CUPS PO PRN (10:41)
[2019-04-03] MEDS ORDERED: ALBUTEROL SO4 2.5/IPRATROPIUM 0.5 INH SOL 3 ML VIAL.NEB. NEB ONE (11:01)
[2019-04-03] MEDS: ALBUTEROL SO4 2.5/IPRATROPIUM 0.5 INH SOL 3 ML VIAL.NEB. NEB SCH ×4 (11:06→20:36)
[2019-04-03] MEDS: PANTOPRAZOLE 40 MG TABLET (FP) PO SCH (11:51)
[2019-04-03] MEDS: ENOXAPARIN NA (PORCINE) 40 MG/0.4 ML DISP.SYRIN SQ SCH (11:51)
[2019-04-03] MEDS: AZITHROMYCIN IVPB 500 MG/250 ML BAG IVPB SCH (11:56)
[2019-04-03] MEDS ORDERED: AZITHROMYCIN IVPB 500 MG/250 ML BAG IVPB ONE (11:58)
--- NOTE | 2019-04-03 14:36 | PN ---
Progress Note (short form) - Note Progress Note: PULMONARY Feels better. Less cough and wheezing. Chest looser. Peak flow done at bedside 170. Vital Signs Period Temp Pulse Resp BP Sys/Mays Pulse Ox Last 24 Hr 97.4 F-98 F 53-104 14-22 109-128/63-82 93-98 Gen: less tachypneic Heart: RRR Lung: scattered rhonchi, wheezes Abd: soft, nontender Ext: no edema CBC, BMP 04/03/19 08:10 04/03/19 08:10 Active Medications Albuterol Sulfate (Ventolin 0.083% Nebulizer Soln -) 1 amp NEB Q4H PRN PRN Reason: SHORT OF BREATH/WHEEZING Albuterol/Ipratropium (Duoneb -) 1 amp NEB RQID [facility] Last Admin: 04/03/19 11:06 Dose: 1 amp Aripiprazole (Abilify) 15 mg PO HS [facility] Last Admin: 04/02/19 23:00 Dose: 15 mg Enoxaparin Sodium (Lovenox -) 40 mg SQ DAILY [facility] Last Admin: 04/03/19 11:51 Dose: 40 mg Fluphenazine HCl (Prolixin -) 5 mg PO HS [facility] Last Admin: 04/02/19 23:00 Dose: 5 mg Guaifenesin (Robitussin -) 10 ml PO Q4H PRN PRN Reason: COUGH Azithromycin (Zithromax 500mg Ivpb (Pre-Docked)) 500 mg in 250 mls @ 250 mls/ hr IVPB DAILY [facility] Last Admin: 04/03/19 11:56 Dose: 250 mls/hr Insulin Aspart (Novolog Vial Sliding Scale -) 1 vial SQ ACHS [facility]; Protocol Last Admin: 04/03/19 12:11 Dose: 8 unit Insulin Detemir (Levemir Vial) 12 units SQ BID@0700,2200 [facility] Metformin HCl (Glucophage -) 500 mg PO BIDI [facility] Last Admin: 04/03/19 06:00 Dose: 500 mg Methylprednisolone Sodium Succinate (Solu-Medrol -) 60 mg IVPUSH Q6H-IV [facility] Last Admin: 04/03/19 11:51 Dose: 60 mg Montelukast Sodium (Singulair -) 10 mg PO HS [facility] Last Admin: 04/02/19 23:00 Dose: 10 mg Nicotine (Nicoderm Patch -) 14 mg TD DAILY [facility] Last Admin: 04/03/19 11:51 Dose: 14 mg Pantoprazole Sodium (Protonix -) 40 mg PO DAILY [facility] Last Admin: 04/03/19 11:51 Dose: 40 mg A/P Acute Asthma/COPD Exacerbation URI DM Smoker - continue medrol, can likely taper in AM - inhaled bronchodilators standing and PRN - O2 to keep SpO2 >90% - monitor peak flow - singulair - outpt PFTs - smoking cessation - glucose control while on systemic steroids - DVT prophylaxis Problem List - Problems (1) Asthma exacerbation Code(s): J45.901 - UNSPECIFIED ASTHMA WITH (ACUTE) EXACERBATION (2) COPD exacerbation Code(s): J44.1 - CHRONIC OBSTRUCTIVE PULMONARY DISEASE W (ACUTE) EXACERBATION (3) Diabetes Code(s): E11.9 - TYPE 2 DIABETES MELLITUS WITHOUT COMPLICATIONS
[2019-04-03] MEDS ORDERED: methylPREDNISolone NA SUCC 40 MG/1 ML VIAL ONE (16:55)
[2019-04-03 22:22] VITALS: BMI 42.7
[2019-04-03] MEDS: MONTELUKAST NA 10 MG TABLET PO SCH (22:38)
[2019-04-03] MEDS: INSULIN (LEVEMIR) 100 UNITS/ML UNITS SQ SCH (22:39)
[2019-04-03] MEDS: ARIPiprazole 15 MG TABLET PO SCH (22:50)
[2019-04-04] MEDS: MELATONIN 5 MG TABLETS PO PRN ×2 (01:28→23:46)
[2019-04-04] MEDS: methylPREDNISolone NA SUCC 40 MG/1 ML VIAL IVPUSH SCH ×3 (02:06→17:11)
[2019-04-04] MEDS: INSULIN SLIDING SCALE (NOVOLOG) 1 VIAL SQ SCH ×4 (06:03→21:35)
[2019-04-04] MEDS: metFORMIN HCL 500 MG TABLET (FP) PO SCH ×2 (06:06→17:13)
[2019-04-04] MEDS: INSULIN (LEVEMIR) 100 UNITS/ML UNITS SQ SCH ×2 (06:06→21:29)
[2019-04-04] MEDS: ALBUTEROL SO4 2.5/IPRATROPIUM 0.5 INH SOL 3 ML VIAL.NEB. NEB SCH ×4 (08:45→19:39)
[2019-04-04 09:44] LABS: BASO % 0.2 % (0-2.0); HEMATOCRIT 34.3 % (32.4-45.2); HEMOGLOBIN 11.1 GM/dL (10.7-15.3); LYMPH % 8.6 % (8-40); MCH 27.9 pg (25.7-33.7); MCHC 32.5 g/dl (32.0-36.0); MEAN CELL VOLUME 85.8 fl (80-96); MEAN PLT VOLUME 7.8 fl (7.5-11.1); MONO % 2.7 % (3.8-10.2); NEUT % 88.5 % (42.8-82.8); PLATELET COUNT 388 K/MM3 (134-434); RBC 3.99 M/mm3 (3.60-5.2); RDW 16.9 % (11.6-15.6); WHITE BLOOD COUNT 21.5 K/mm3 (4.0-10.0)
[2019-04-04] MEDS: ENOXAPARIN NA (PORCINE) 40 MG/0.4 ML DISP.SYRIN SQ SCH (10:13)
[2019-04-04] MEDS: NICOTINE 14 MG/24 HOURS TOPICAL PATCH TD SCH (10:15)
[2019-04-04] MEDS: AZITHROMYCIN IVPB 500 MG/250 ML BAG IVPB SCH (10:15)
[2019-04-04] MEDS: PANTOPRAZOLE 40 MG TABLET (FP) PO SCH (10:15)
--- NOTE | 2019-04-04 12:12 | PN ---
Progress Note (short form) - Note Progress Note: Breathing is better Vital Signs - 24 hr 04/03/19 04/03/19 04/03/19 20:01 21:00 22:17 Temperature 97.5 F L 98 F Pulse Rate 94 H Pulse Rate [ 86 Apical] Respiratory 20 20 Rate Blood Pressure 146/84 Blood Pressure 134/72 [Right Arm] O2 Sat by Pulse 96 96 Oximetry (%) 04/03/19 04/04/19 23:07 05:25 Temperature 98.1 F Pulse Rate 105 H Pulse Rate [ Apical] Respiratory 20 Rate Blood Pressure 146/85 Blood Pressure [Right Arm] O2 Sat by Pulse 92 L Oximetry (%) Current Medications Generic Name Dose Route Start Last Admin Trade Name Freq PRN Reason Stop Dose Admin Albuterol Sulfate 1 amp 04/02/19 15:26 Ventolin 0.083% Nebulizer Soln - NEB Q4H PRN SHORT OF BREATH/WHEEZING Albuterol/Ipratropium 1 amp 04/02/19 16:00 04/04/19 08:45 Duoneb - NEB 1 amp RQID [facility] Administration Aripiprazole 15 mg 04/02/19 22:00 04/03/19 22:50 Abilify PO 15 mg HS [facility] Administration Enoxaparin Sodium 40 mg 04/03/19 10:00 04/04/19 10:13 Lovenox - SQ 40 mg DAILY [facility] Administration Fluphenazine HCl 5 mg 04/02/19 22:00 04/03/19 22:50 Prolixin - PO 5 mg HS [facility] Administration Guaifenesin 10 ml 04/03/19 10:41 04/04/19 11:15 Robitussin - PO 10 ml Q4H PRN Administration COUGH Azithromycin 500 mg in 250 mls @ 250 mls/hr 04/03/19 10:00 04/04/19 10:15 Zithromax 500mg Ivpb (Pre-Docked) IVPB 250 mls/hr DAILY [facility] Administration Insulin Aspart 1 vial 04/02/19 11:00 04/04/19 11:18 Novolog Vial Sliding Scale - SQ 10 units ACHS [facility] Administration Protocol Insulin Detemir 12 units 04/03/19 22:00 04/04/19 06:06 Levemir Vial SQ 12 units BID@0700,2200 [facility] Administration Melatonin 5 mg 04/04/19 00:54 04/04/19 01:28 Melatonin PO 5 mg HS PRN Administration INSOMNIA Metformin HCl 500 mg 04/02/19 16:30 04/04/19 06:06 Glucophage - PO 500 mg BIDI [facility] Administration Methylprednisolone Sodium Succinate 40 mg 04/04/19 18:00 Solu-Medrol - IVPUSH Q8H-IV [facility] Montelukast Sodium 10 mg 04/02/19 22:00 04/03/19 22:38 Singulair - PO 10 mg HS [facility] Administration Nicotine 14 mg 04/02/19 10:30 04/04/19 10:15 Nicoderm Patch - TD 14 mg DAILY [facility] Administration Pantoprazole Sodium 40 mg 04/02/19 10:30 04/04/19 10:15 Protonix - PO 40 mg DAILY [facility] Administration Sitagliptin Phosphate 100 mg 04/05/19 07:00 Januvia - PO DAILY@0700 [facility] Laboratory Results - last 24 hr 04/03/19 04/03/19 04/03/19 12:04 17:01 22:37 WBC RBC Hgb Hct MCV MCH MCHC RDW Plt Count MPV Absolute Neuts (auto) Neutrophils % Lymphocytes % Monocytes % Eosinophils % Basophils % Nucleated RBC % POC Glucometer 307 343 324 Hemoglobin A1c % Triglycerides Cholesterol Total LDL Cholesterol HDL Cholesterol TSH 04/04/19 04/04/19 04/04/19 05:13 09:00 09:00 WBC 21.5 H RBC 3.99 Hgb 11.1 Hct 34.3 MCV 85.8 MCH 27.9 MCHC 32.5 RDW 16.9 H Plt Count 388 MPV 7.8 Absolute Neuts (auto) 19.1 H Neutrophils % 88.5 H Lymphocytes % 8.6 Monocytes % 2.7 L Eosinophils % 0.0 Basophils % 0.2 Nucleated RBC % 0 POC Glucometer 262 Hemoglobin A1c % Triglycerides 113 Cholesterol 154 Total LDL Cholesterol 65 HDL Cholesterol 59 TSH 0.21 L 04/04/19 04/04/19 09:00 11:17 WBC RBC Hgb Hct MCV MCH MCHC RDW Plt Count MPV Absolute Neuts (auto) Neutrophils % Lymphocytes % Monocytes % Eosinophils % Basophils % Nucleated RBC % POC Glucometer 365 Hemoglobin A1c % 10.7 H Triglycerides Cholesterol Total LDL Cholesterol HDL Cholesterol TSH S1 S2 RRR Lungs decreased breath sounds+, ronchi+ less Abd- soft, NT, obese No edema PLAN iv solumedrol taper standing nebs and prn Add Robitussin Pulmonary eval noted OOB Lovenox sc for DVT prophylaxis Chest CT - ground glass opacities A1 C 10 -->BGM control discussed about weight loss, nutrition eval , add Desire Problem List - Problems (1) Diabetes Code(s): E11.9 - TYPE 2 DIABETES MELLITUS WITHOUT COMPLICATIONS (2) Asthma exacerbation Code(s): J45.901 - UNSPECIFIED ASTHMA WITH (ACUTE) EXACERBATION (3) COPD exacerbation Code(s): J44.1 - CHRONIC OBSTRUCTIVE PULMONARY DISEASE W (ACUTE) EXACERBATION (4) Reactive airway disease Code(s): J45.909 - UNSPECIFIED ASTHMA, UNCOMPLICATED Qualifiers: Asthma severity: mild intermittent Asthma complication type: with acute exacerbation
[2019-04-04 15:35] LABS: ANISOCYTOSIS 1+; MACROCYTOSIS 0; OVALOCYTE 1+; PLATELET ESTIMATE NORMAL
--- NOTE | 2019-04-04 16:33 | PN ---
Progress Note (short form) - Note Progress Note: PULMONARY Breathing continues to improve. Peak flow done at bedside 200. Vital Signs Period Temp Pulse Resp BP Sys/Mays Pulse Ox Last 24 Hr 97.5 F-98.1 F 69-105 20-20 133-146/66-85 92-96 Gen: less tachypneic Heart: RRR Lung: scattered rhonchi, wheezes Abd: soft, nontender Ext: no edema CBC, BMP 04/04/19 09:00 04/03/19 08:10 Active Medications Albuterol Sulfate (Ventolin 0.083% Nebulizer Soln -) 1 amp NEB Q4H PRN PRN Reason: SHORT OF BREATH/WHEEZING Albuterol/Ipratropium (Duoneb -) 1 amp NEB RQID [facility] Last Admin: 04/04/19 12:42 Dose: 1 amp Aripiprazole (Abilify) 15 mg PO HS [facility] Last Admin: 04/03/19 22:50 Dose: 15 mg Enoxaparin Sodium (Lovenox -) 40 mg SQ DAILY [facility] Last Admin: 04/04/19 10:13 Dose: 40 mg Fluphenazine HCl (Prolixin -) 5 mg PO HS [facility] Last Admin: 04/03/19 22:50 Dose: 5 mg Guaifenesin (Robitussin -) 10 ml PO Q4H PRN PRN Reason: COUGH Last Admin: 04/04/19 11:15 Dose: 10 ml Azithromycin (Zithromax 500mg Ivpb (Pre-Docked)) 500 mg in 250 mls @ 250 mls/ hr IVPB DAILY [facility] Last Admin: 04/04/19 10:15 Dose: 250 mls/hr Insulin Aspart (Novolog Vial Sliding Scale -) 1 vial SQ ACHS [facility]; Protocol Last Admin: 04/04/19 11:18 Dose: 10 units Insulin Detemir (Levemir Vial) 12 units SQ BID@0700,2200 [facility] Last Admin: 04/04/19 06:06 Dose: 12 units Melatonin (Melatonin) 5 mg PO HS PRN PRN Reason: INSOMNIA Last Admin: 04/04/19 01:28 Dose: 5 mg Metformin HCl (Glucophage -) 500 mg PO BIDI [facility] Last Admin: 04/04/19 06:06 Dose: 500 mg Methylprednisolone Sodium Succinate (Solu-Medrol -) 40 mg IVPUSH Q8H-IV [facility] Montelukast Sodium (Singulair -) 10 mg PO HS [facility] Last Admin: 04/03/19 22:38 Dose: 10 mg Nicotine (Nicoderm Patch -) 14 mg TD DAILY [facility] Last Admin: 04/04/19 10:15 Dose: 14 mg Pantoprazole Sodium (Protonix -) 40 mg PO DAILY [facility] Last Admin: 04/04/19 10:15 Dose: 40 mg Sitagliptin Phosphate (Januvia -) 100 mg PO DAILY@0700 [facility] A/P Acute Asthma/COPD Exacerbation URI DM Smoker - agree with medrol taper, can likely change to PO prednisone 40mg daily in AM - inhaled bronchodilators standing and PRN - O2 to keep SpO2 >90% - monitor peak flow - singulair - outpt PFTs - smoking cessation - glucose control while on systemic steroids - DVT prophylaxis - pt requesting precision machine operator consult Problem List - Problems (1) Asthma exacerbation Code(s): J45.901 - UNSPECIFIED ASTHMA WITH (ACUTE) EXACERBATION (2) COPD exacerbation Code(s): J44.1 - CHRONIC OBSTRUCTIVE PULMONARY DISEASE W (ACUTE) EXACERBATION (3) Diabetes Code(s): E11.9 - TYPE 2 DIABETES MELLITUS WITHOUT COMPLICATIONS
[2019-04-04] MEDS ORDERED: INSULIN (NOVOLOG) ASPART 100 UNITS/ML 10ML VIAL ONE (21:20)
[2019-04-04] MEDS: ARIPiprazole 15 MG TABLET PO SCH (21:29)
[2019-04-04] MEDS: MONTELUKAST NA 10 MG TABLET PO SCH (21:29)
[2019-04-04] MEDS ORDERED: ACETAMINOPHEN 325 MG TABLET (FP) PO ONE (23:07)
[2019-04-05] MEDS: methylPREDNISolone NA SUCC 40 MG/1 ML VIAL IVPUSH SCH ×3 (01:04→17:07)
[2019-04-05] MEDS: metFORMIN HCL 500 MG TABLET (FP) PO SCH ×2 (06:21→16:50)
[2019-04-05] MEDS: INSULIN (LEVEMIR) 100 UNITS/ML UNITS SQ SCH ×2 (06:22→21:30)
[2019-04-05] MEDS: INSULIN SLIDING SCALE (NOVOLOG) 1 VIAL SQ SCH ×4 (06:22→21:28)
[2019-04-05] MEDS: ALBUTEROL SO4 2.5/IPRATROPIUM 0.5 INH SOL 3 ML VIAL.NEB. NEB SCH ×3 (08:01→21:05)
[2019-04-05 08:13] LABS: BASO % 0.5 % (0-2.0); HEMATOCRIT 34.8 % (32.4-45.2); HEMOGLOBIN 11.5 GM/dL (10.7-15.3); LYMPH % 12.5 % (8-40); MCH 28.1 pg (25.7-33.7); MCHC 33.1 g/dl (32.0-36.0); MEAN CELL VOLUME 84.8 fl (80-96); MEAN PLT VOLUME 7.7 fl (7.5-11.1); MONO % 2.4 % (3.8-10.2); NEUT % 84.6 % (42.8-82.8); PLATELET COUNT 391 K/MM3 (134-434); RBC 4.11 M/mm3 (3.60-5.2); RDW 16.5 % (11.6-15.6); WHITE BLOOD COUNT 17.9 K/mm3 (4.0-10.0)
[2019-04-05] MEDS: PANTOPRAZOLE 40 MG TABLET (FP) PO SCH (10:23)
[2019-04-05] MEDS: ENOXAPARIN NA (PORCINE) 40 MG/0.4 ML DISP.SYRIN SQ SCH (10:23)
[2019-04-05] MEDS: AZITHROMYCIN IVPB 500 MG/250 ML BAG IVPB SCH (10:23)
[2019-04-05] MEDS: NICOTINE 14 MG/24 HOURS TOPICAL PATCH TD SCH (10:23)
--- NOTE | 2019-04-05 10:32 | PN ---
Progress Note (short form) - Note Progress Note: pt seen/ examined chart reviewed feels better decreased cough Vital Signs Temp 97.6 F 04/05/19 09:31 Pulse 74 04/05/19 09:31 Resp 20 04/05/19 09:31 BP 129/63 04/05/19 09:31 Pulse Ox 96 04/04/19 21:00 Intake & Output 04/04/19 04/04/19 04/05/19 11:59 23:59 11:59 Intake Total 500 1490 700 Balance 500 1490 700 Weight 249 lb Intake: IVPB 250 Oral 250 1490 700 Other: Voiding Method Toilet Toilet # Unmeasured Voids Void 2 2 1 Bowel Movement Yes No No # Bowel Movements 1 1 Height 5 ft 4 in Body Mass Index (BMI) 42.7 Weight Measurement Method Built in [facility] Active Medications Albuterol Sulfate (Ventolin 0.083% Nebulizer Soln -) 1 amp NEB Q4H PRN PRN Reason: SHORT OF BREATH/WHEEZING Albuterol/Ipratropium (Duoneb -) 1 amp NEB RQID [facility] Last Admin: 04/05/19 08:01 Dose: 1 amp Aripiprazole (Abilify) 15 mg PO HS [facility] Last Admin: 04/04/19 21:29 Dose: 15 mg Enoxaparin Sodium (Lovenox -) 40 mg SQ DAILY [facility] Last Admin: 04/05/19 10:23 Dose: 40 mg Fluphenazine HCl (Prolixin -) 5 mg PO HS [facility] Last Admin: 04/04/19 21:30 Dose: 5 mg Guaifenesin (Robitussin -) 10 ml PO Q4H PRN PRN Reason: COUGH Last Admin: 04/04/19 11:15 Dose: 10 ml Azithromycin (Zithromax 500mg Ivpb (Pre-Docked)) 500 mg in 250 mls @ 250 mls/ hr IVPB DAILY [facility] Last Admin: 04/05/19 10:23 Dose: 250 mls/hr Insulin Aspart (Novolog Vial Sliding Scale -) 1 vial SQ ACHS [facility]; Protocol Last Admin: 04/05/19 06:22 Dose: 6 units Insulin Detemir (Levemir Vial) 12 units SQ BID@0700,2200 [facility] Last Admin: 04/05/19 06:22 Dose: 12 units Melatonin (Melatonin) 5 mg PO HS PRN PRN Reason: INSOMNIA Last Admin: 04/04/19 23:46 Dose: 5 mg Metformin HCl (Glucophage -) 500 mg PO BIDI [facility] Last Admin: 04/05/19 06:21 Dose: 500 mg Methylprednisolone Sodium Succinate (Solu-Medrol -) 40 mg IVPUSH Q8H-IV [facility] Last Admin: 04/05/19 10:23 Dose: 40 mg Montelukast Sodium (Singulair -) 10 mg PO HS [facility] Last Admin: 04/04/19 21:29 Dose: 10 mg Nicotine (Nicoderm Patch -) 14 mg TD DAILY [facility] Last Admin: 04/05/19 10:23 Dose: 14 mg Pantoprazole Sodium (Protonix -) 40 mg PO DAILY [facility] Last Admin: 04/05/19 10:23 Dose: 40 mg Sitagliptin Phosphate (Januvia -) 100 mg PO DAILY@0700 [facility] Last Admin: 04/05/19 06:21 Dose: 100 mg CBC, BMP 04/05/19 07:28 04/03/19 08:10 ct chest reviewed---to be repeated in few weeks for ground glass opacities Physical Exam S1 S2 RRR Lungs decreased breath sounds+, ronchi+ Abd- soft, NT, obese No edema PLAN Better iv solumedrol taper-- Po Prednisone standing nebs and prn Robitussin Pulmonary eval noted OOB Lovenox sc for DVT prophylaxis Chest CT - ground glass opacities A1 C 10 -->BGM control discussed about weight loss, nutrition eval , added Januvia compliance issues abx will consult endo also-- pt need strong motivation to control sugar/ quit smoking will follow Problem List - Problems (1) Psychiatric disorder Code(s): F99 - MENTAL DISORDER, NOT OTHERWISE SPECIFIED (2) COPD exacerbation Code(s): J44.1 - CHRONIC OBSTRUCTIVE PULMONARY DISEASE W (ACUTE) EXACERBATION (3) Diabetes Code(s): E11.9 - TYPE 2 DIABETES MELLITUS WITHOUT COMPLICATIONS (4) Reactive airway disease Code(s): J45.909 - UNSPECIFIED ASTHMA, UNCOMPLICATED Qualifiers: Asthma severity: mild intermittent Asthma complication type: with acute exacerbation
[2019-04-05] MEDS ORDERED: INSULIN (NOVOLOG) ASPART 100 UNITS/ML 10ML VIAL ONE ×3 (11:28→21:21)
--- NOTE | 2019-04-05 14:22 | PN ---
Progress Note, Physician History of Present Illness: pulmonary alert,feeling better,sob improving - Current Medication List Current Medications: Active Medications Albuterol Sulfate (Ventolin 0.083% Nebulizer Soln -) 1 amp NEB Q4H PRN PRN Reason: SHORT OF BREATH/WHEEZING Albuterol/Ipratropium (Duoneb -) 1 amp NEB RQID [facility] Last Admin: 04/05/19 11:52 Dose: 1 amp Aripiprazole (Abilify) 15 mg PO HS [facility] Last Admin: 04/04/19 21:29 Dose: 15 mg Enoxaparin Sodium (Lovenox -) 40 mg SQ DAILY [facility] Last Admin: 04/05/19 10:23 Dose: 40 mg Fluphenazine HCl (Prolixin -) 5 mg PO HS [facility] Last Admin: 04/04/19 21:30 Dose: 5 mg Guaifenesin (Robitussin -) 10 ml PO Q4H PRN PRN Reason: COUGH Last Admin: 04/04/19 11:15 Dose: 10 ml Azithromycin (Zithromax 500mg Ivpb (Pre-Docked)) 500 mg in 250 mls @ 250 mls/ hr IVPB DAILY [facility] Last Admin: 04/05/19 10:23 Dose: 250 mls/hr Insulin Aspart (Novolog Vial Sliding Scale -) 1 vial SQ [facility]; Protocol Last Admin: 04/05/19 11:34 Dose: 8 units Insulin Detemir (Levemir Vial) 12 units SQ BID@0700,2200 [facility] Last Admin: 04/05/19 06:22 Dose: 12 units Melatonin (Melatonin) 5 mg PO HS PRN PRN Reason: INSOMNIA Last Admin: 04/04/19 23:46 Dose: 5 mg Metformin HCl (Glucophage -) 500 mg PO BIDI [facility] Last Admin: 04/05/19 06:21 Dose: 500 mg Methylprednisolone Sodium Succinate (Solu-Medrol -) 40 mg IVPUSH Q8H-IV [facility] Last Admin: 04/05/19 10:23 Dose: 40 mg Montelukast Sodium (Singulair -) 10 mg PO HS [facility] Last Admin: 04/04/19 21:29 Dose: 10 mg Nicotine (Nicoderm Patch -) 14 mg TD DAILY [facility] Last Admin: 04/05/19 10:23 Dose: 14 mg Pantoprazole Sodium (Protonix -) 40 mg PO DAILY [facility] Last Admin: 04/05/19 10:23 Dose: 40 mg Sitagliptin Phosphate (Januvia -) 100 mg PO DAILY@0700 [facility] Last Admin: 04/05/19 06:21 Dose: 100 mg - Objective Vital Signs: Vital Signs Temperature 97.6 F 04/05/19 09:31 Pulse Rate 74 04/05/19 09:31 Respiratory Rate 20 04/05/19 09:31 Blood Pressure 129/63 04/05/19 09:31 O2 Sat by Pulse Oximetry (%) 96 04/04/19 21:00 Constitutional: Yes: Well Nourished, Calm Eyes: Yes: WNL HENT: Yes: WNL Neck: Yes: WNL Cardiovascular: Yes: Regular Rate and Rhythm, S1, S2 Respiratory: Yes: Wheezes (less wheezes constantino) Gastrointestinal: Yes: Normal Bowel Sounds, Soft, Abdomen, Obese Extremities: Yes: WNL Edema: No Labs: CBC, BMP 04/05/19 07:28 Assessment/Plan A/P Acute Asthma/COPD Exacerbation URI DM Smoker Suspected sleep apnea - prednisone 40mg daily in AM - inhaled bronchodilators standing and PRN - O2 to keep SpO2 >90% - monitor peak flow - singulair - outpt PFTs - smoking cessation - glucose control while on systemic steroids - DVT prophylaxis - pt requesting scratcher tender consult - sleep screen Problem List - Problems (1) Asthma exacerbation Code(s): J45.901 - UNSPECIFIED ASTHMA WITH (ACUTE) EXACERBATION (2) COPD exacerbation Code(s): J44.1 - CHRONIC OBSTRUCTIVE PULMONARY DISEASE W (ACUTE) EXACERBATION (3) Diabetes Code(s): E11.9 - TYPE 2 DIABETES MELLITUS WITHOUT COMPLICATIONS
[2019-04-05 20:55] VITALS: TEMP 97.7
--- NOTE | 2019-04-05 21:20 | CONSULT ---
Consult Consult Specialty:: endocrine Referred by:: Dr.Sing White Reason for Consultation:: Diabetes mellitus uncontrolled - History of Present Illness Chief Complaint: high sugars History of Present Illness: 44yo female Pmh,dm2,copd,asthmatic,admitted with worsening shortness of breath, wheezing cough, states congestion, cough, sob since february - was using inhalers however not improving,has difficulty walking and unable to exercise,has gained weight,has high sugars despite taking metformin,she admits diet noncompliance, and wants to improve with stricter control,she denies cp,fever,or chills. - Past Medical History ...LMP: 03/14/16 Psych: Yes: Depression Endocrine: Yes: Diabetes Mellitus - Alcohol/Substance Use Hx Alcohol Use: Yes (Social) - Smoking History Smoking history: Current every day smoker Have you smoked in the past 12 months: Yes Aproximately how many cigarettes per day: 10 Home Medications - Allergies Allergies/Adverse Reactions: Allergies Allergy/AdvReac Type Severity Reaction Status Date / Time No Known Allergies Allergy Verified 04/02/19 04:12 - Home Medications Home Medications: Ambulatory Orders Aripiprazole [Abilify -] 15 mg PO HS 02/01/13 Fluphenazine HCl [Prolixin -] 5 mg PO HS 07/28/15 Albuterol Sulfate Inhaler - [Ventolin Hfa Inhaler -] 1 - 2 inh PO QID PRN Metformin HCl [Glucophage] 500 mg PO BID #60 tablet 01/31/19 Review of Systems - Review of Systems Constitutional: reports: Weakness Eyes: reports: Blurred Vision HENT: reports: No Symptoms Neck: reports: No Symptoms Cardiovascular: reports: Shortness of Breath Respiratory: reports: Exercise Intolerance, SOB on Exertion, Wheezing Gastrointestinal: reports: Constipation Genitourinary: reports: Frequency Breasts: reports: No Symptoms Reported Musculoskeletal: reports: Muscle Cramps, Muscle Weakness Integumentary: reports: No Symptoms Endocrine: reports: Unexplained Weight Gain Physical Exam Vital Signs: Vital Signs Temperature 97.7 F 04/05/19 20:53 Pulse Rate 84 04/05/19 20:53 Respiratory Rate 20 04/05/19 20:53 Blood Pressure 112/68 04/05/19 20:53 O2 Sat by Pulse Oximetry (%) 98 04/05/19 20:42 Constitutional: Yes: Anxious Eyes: Yes: EOM Intact HENT: Yes: Normocephalic Neck: Yes: Trachea Midline Cardiovascular: Yes: Tachycardia Respiratory: Yes: SOB, Tachypnea, Wheezes Gastrointestinal: Yes: Normal Bowel Sounds ...Rectal Exam: Yes: Deferred Renal/: Yes: WNL Musculoskeletal: Yes: WNL Extremities: Yes: WNL Edema: No Neurological: Yes: Alert, Oriented Labs: CBC, BMP 04/05/19 07:28 04/03/19 08:10 Problem List - Problems (1) Asthma exacerbation Code(s): J45.901 - UNSPECIFIED ASTHMA WITH (ACUTE) EXACERBATION (2) COPD exacerbation Code(s): J44.1 - CHRONIC OBSTRUCTIVE PULMONARY DISEASE W (ACUTE) EXACERBATION (3) Diabetes Code(s): E11.9 - TYPE 2 DIABETES MELLITUS WITHOUT COMPLICATIONS (4) 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 (5) Blood sugar increased Code(s): R73.09 - OTHER ABNORMAL GLUCOSE Assessment/Plan Current Active Problems Asthma exacerbation (Acute) COPD exacerbation (Acute) Diabetes (Acute) Psychiatric disorder (Acute) Abnormal Lab Results 04/05/19 07:28 WBC 17.9 H RDW 16.5 H Absolute Neuts (auto) 15.1 H Neutrophils % 84.6 H Monocytes % 2.4 L Laboratory Results - last 24 hr 04/04/19 04/05/19 04/05/19 21:34 05:48 07:28 WBC 17.9 H RBC 4.11 Hgb 11.5 Hct 34.8 MCV 84.8 MCH 28.1 MCHC 33.1 RDW 16.5 H Plt Count 391 MPV 7.7 Absolute Neuts (auto) 15.1 H Neutrophils % 84.6 H Lymphocytes % 12.5 D Monocytes % 2.4 L Eosinophils % 0.0 Basophils % 0.5 Nucleated RBC % 0 POC Glucometer 266 278 04/05/19 04/05/19 11:13 16:23 WBC RBC Hgb Hct MCV MCH MCHC RDW Plt Count MPV Absolute Neuts (auto) Neutrophils % Lymphocytes % Monocytes % Eosinophils % Basophils % Nucleated RBC % POC Glucometer 315 379 Laboratory Tests 04/03/19 04/03/19 04/04/19 08:10 12:04 09:00 Sodium 142 Potassium 4.4 Chloride 108 H Carbon Dioxide 23 Anion Gap 12 BUN 10.9 Creatinine 1.0 Est GFR (CKD-EPI)AfAm 79.35 Est GFR (CKD-EPI)NonAf 68.46 POC Glucometer 307 Random Glucose 304 H* Hemoglobin A1c % 10.7 H plan: levemir 30units bid while on steroids will need higher doses bgm qid novolog scale metformin 1000mg bid januvia 100mg day
[2019-04-05] MEDS: MONTELUKAST NA 10 MG TABLET PO SCH (21:27)
[2019-04-05] MEDS: ARIPiprazole 15 MG TABLET PO SCH (21:27)
[2019-04-05] MEDS ORDERED: ACETAMINOPHEN 325 MG TABLET (FP) PO PRN (22:24)
[2019-04-05] MEDS ORDERED: MELATONIN 5 MG TABLETS PO PRN (22:24)
[2019-04-06] MEDS: INSULIN (LEVEMIR) 100 UNITS/ML UNITS SQ SCH (06:06)
[2019-04-06] MEDS: INSULIN SLIDING SCALE (NOVOLOG) 1 VIAL SQ SCH ×2 (06:08→12:02)
[2019-04-06] MEDS ORDERED: metFORMIN HCL 500 MG TABLET (FP) PO SCH (07:00)
[2019-04-06] MEDS: ALBUTEROL SO4 2.5/IPRATROPIUM 0.5 INH SOL 3 ML VIAL.NEB. NEB SCH ×2 (07:21→11:04)
[2019-04-06] MEDS: PANTOPRAZOLE 40 MG TABLET (FP) PO SCH (09:59)
[2019-04-06] MEDS ORDERED: predniSONE 20 MG TABLET (UD) PO SCH (10:00)
[2019-04-06] MEDS: ENOXAPARIN NA (PORCINE) 40 MG/0.4 ML DISP.SYRIN SQ SCH (10:00)
[2019-04-06] MEDS: NICOTINE 14 MG/24 HOURS TOPICAL PATCH TD SCH (10:00)
--- NOTE | 2019-04-06 11:10 | PN ---
Progress Note, Physician History of Present Illness: pulmonary alert,feeling better,-sob,-cough. sleep screen AHI 27 c/w severe osas - Current Medication List Current Medications: Active Medications Acetaminophen (Tylenol -) 650 mg PO Q6H PRN PRN Reason: PAIN Last Admin: 04/05/19 22:57 Dose: 650 mg Albuterol Sulfate (Ventolin 0.083% Nebulizer Soln -) 1 amp NEB Q4H PRN PRN Reason: SHORT OF BREATH/WHEEZING Albuterol/Ipratropium (Duoneb -) 1 amp NEB RQID [facility] Last Admin: 04/06/19 11:04 Dose: 1 amp Aripiprazole (Abilify) 15 mg PO HS [facility] Last Admin: 04/05/19 21:27 Dose: 15 mg Enoxaparin Sodium (Lovenox -) 40 mg SQ DAILY [facility] Last Admin: 04/06/19 10:00 Dose: 40 mg Fluphenazine HCl (Prolixin -) 5 mg PO HS [facility] Last Admin: 04/05/19 21:26 Dose: 5 mg Guaifenesin (Robitussin -) 10 ml PO Q4H PRN PRN Reason: COUGH Last Admin: 04/04/19 11:15 Dose: 10 ml Azithromycin (Zithromax 500mg Ivpb (Pre-Docked)) 500 mg in 250 mls @ 250 mls/ hr IVPB DAILY [facility] Last Admin: 04/05/19 10:23 Dose: 250 mls/hr Insulin Aspart (Novolog Vial Sliding Scale -) 1 vial SQ ACHS [facility]; Protocol Last Admin: 04/06/19 06:08 Dose: 10 unit Insulin Detemir (Levemir Vial) 30 units SQ BID@0700,2200 [facility] Last Admin: 04/06/19 06:06 Dose: 30 units Melatonin (Melatonin) 10 mg PO HS PRN PRN Reason: INSOMNIA Last Admin: 04/05/19 22:57 Dose: 10 mg Metformin HCl (Glucophage -) 1,000 mg PO BIDI [facility] Last Admin: 04/06/19 06:06 Dose: 1,000 mg Montelukast Sodium (Singulair -) 10 mg PO HS [facility] Last Admin: 04/05/19 21:27 Dose: 10 mg Nicotine (Nicoderm Patch -) 14 mg TD DAILY [facility] Last Admin: 04/06/19 10:00 Dose: 14 mg Pantoprazole Sodium (Protonix -) 40 mg PO DAILY [facility] Last Admin: 04/06/19 09:59 Dose: 40 mg Prednisone (Deltasone -) 40 mg PO DAILY [facility] Last Admin: 04/06/19 09:59 Dose: 40 mg Sitagliptin Phosphate (Januvia -) 100 mg PO DAILY@0700 [facility] Last Admin: 04/06/19 06:06 Dose: 100 mg - Objective Vital Signs: Vital Signs Temperature 97.7 F 04/06/19 06:33 Pulse Rate 67 04/06/19 06:33 Respiratory Rate 20 04/06/19 06:33 Blood Pressure 124/74 04/06/19 06:33 O2 Sat by Pulse Oximetry (%) 98 04/05/19 20:42 Constitutional: Yes: Well Nourished, Calm Eyes: Yes: WNL HENT: Yes: WNL Neck: Yes: WNL Cardiovascular: Yes: Regular Rate and Rhythm, S1, S2 Respiratory: Yes: Wheezes (FEW WHEEZES) Gastrointestinal: Yes: Normal Bowel Sounds, Soft Extremities: Yes: WNL Edema: No Labs: CBC, BMP 04/05/19 07:28 Assessment/Plan A/P Acute Asthma/COPD Exacerbation URI DM Smoker sleep apnea AHI 27 on sleep screen - prednisone 40mg daily in AM - symbicort 160/4.5 2 puffs bid as outpatient - inhaled bronchodilators standing and PRN - O2 to keep SpO2 >90% - monitor peak flow - singulair - outpt PFTs - smoking cessation - glucose control while on systemic steroids - DVT prophylaxis - formal sleep studies outpatient Problem List - Problems (1) Asthma exacerbation Code(s): J45.901 - UNSPECIFIED ASTHMA WITH (ACUTE) EXACERBATION (2) COPD exacerbation Code(s): J44.1 - CHRONIC OBSTRUCTIVE PULMONARY DISEASE W (ACUTE) EXACERBATION (3) Diabetes Code(s): E11.9 - TYPE 2 DIABETES MELLITUS WITHOUT COMPLICATIONS
[2019-04-06 11:57] VITALS: BP 116/74; PULSE 66
[2019-04-06] MEDS ORDERED: INSULIN (NOVOLOG) ASPART 100 UNITS/ML 10ML VIAL ONE (11:59)
[2019-04-06] MEDS: AZITHROMYCIN IVPB 500 MG/250 ML BAG IVPB SCH (12:31)
--- NOTE | 2019-04-06 12:50 | DS ---
Physical Examination Vital Signs: Vital Signs Temperature 97.7 F 04/06/19 06:33 Pulse Rate 66 04/06/19 10:00 Respiratory Rate 20 04/06/19 06:33 Blood Pressure 116/74 04/06/19 10:00 O2 Sat by Pulse Oximetry (%) 98 04/06/19 09:00 Findings/Remarks: awake/ comfortable wants to go home no complains Constitutional: Yes: No Distress, Calm Eyes: Yes: Conjunctiva Clear Neck: Yes: Supple Cardiovascular: Yes: Regular Rate and Rhythm Respiratory: Yes: Rhonchi Gastrointestinal: Yes: Soft, Abdomen, Obese Edema: No Neurological: Yes: Alert Labs: CBC, BMP 04/05/19 07:28 04/03/19 08:10 Discharge Summary Reason For Visit: REACTIVE [employer] DISEASE Current Active Problems Asthma exacerbation (Acute) COPD exacerbation (Acute) Diabetes (Acute) Psychiatric disorder (Acute) Hospital Course: admitted for copd exac uncontrolled diabetes treated with steroids/ abx Also has sleep apnea better discussed ct chest -- ground glass opacities-- need to be repeated in 2-3 weeks pt wants to go home dont want to be on Insulin add glucotrol Monitor bgm at home sleep studies also to done --as out pt spoke with pts mother in detail also on phone per pt request Discussed with nursing staff also f/u in office 2 weeks Condition: Guarded - Instructions Disposition: HOME - Home Medications Comprehensive Discharge Medication List: Ambulatory Orders Aripiprazole [Abilify -] 15 mg PO HS 02/01/13 Fluphenazine HCl [Prolixin -] 5 mg PO HS 07/28/15 Albuterol Sulfate Inhaler - [Ventolin HFA Inhaler -] 1 - 2 inh PO QID PRN Acetaminophen [Tylenol .Regular Strength -] 650 mg PO Q6H PRN tablet 04/06/19 Albuterol 2.5/Ipratropium 0.5 [Duoneb -] 1 amp NEB RQID amp 04/06/19 Glipizide [Glucotrol Xl] 5 mg PO DAILY 30 Days #30 tab.er.24 04/06/19 Montelukast Na [Singulair -] 10 mg PO HS #30 tablet 04/06/19 Nebulizer [Aeroeclipse II] 1 each MC PRN #1 each 04/06/19 Pantoprazole Sodium [Protonix -] 40 mg PO DAILY #30 tablet.ec 04/06/19 Sitagliptin Phosphate [Januvia -] 100 mg PO DAILY@0700 #30 ud 04/06/19 metFORMIN HCL [Glucophage -] 1,000 mg PO BIDI #60 tablet 04/06/19 predniSONE [Deltasone -] 20 mg PO DAILY #10 tablet 04/06/19 Zithromax 500 mg daily x 3 days
[2019-04-06] MEDS ORDERED: AZITHROMYCIN 250 MG TABLET PO ONE (12:52)
== END 2019-04-06 13:21 | disposition home or self-care (01) | DRG 191 ==
LOC: JER 03:26 → JERBED 09:27 → J6S 04-03 21:13
PROVIDERS: ADMIT Internal Medicine; ATTEND Internal Medicine
DX: J44.1 Chronic obstructive pulmonary disease with (acute) exacerbation (principal); J45.21 Mild intermittent asthma with (acute) exacerbation; Z68.41 Body mass index [BMI] 40.0-44.9, adult; E11.9 Type 2 diabetes mellitus without complications; F41.8 Other specified anxiety disorders; F25.9 Schizoaffective disorder, unspecified; F17.210 Nicotine dependence, cigarettes, uncomplicated; J06.9 Acute upper respiratory infection, unspecified; G47.30 Sleep apnea, unspecified; E66.8 Other obesity; R06.02 Shortness of breath; I10 Essential (primary) hypertension; R00.0 Tachycardia, unspecified; R09.02 Hypoxemia
CPT/HCPCS: 36415; 71046-TC-FY; 71250-TC; 80053; 80061; 82550; 82962; 83036; 83721; 83880; 84439; 84443; 84484; 84703; 85025; 93005; 93010; 94150; 94640; 99285-25

== ENCOUNTER 2019-08-27 08:16 | Emergency (ER) | payer OTHER ==
[2019-08-27 08:36] VITALS: TEMP 97.8; BMI 42.9
[2019-08-27 09:26] LABS: BASO % 0.5 % (0-2.0); EOS % 2.2 % (0-4.5); HEMATOCRIT 37.2 % (32.4-45.2); HEMOGLOBIN 12.2 GM/dL (10.7-15.3); LYMPH % 31.2 % (8-40); MCH 27.4 pg (25.7-33.7); MCHC 32.8 g/dl (32.0-36.0); MEAN CELL VOLUME 83.8 fl (80-96); MEAN PLT VOLUME 7.4 fl (7.5-11.1); MONO % 6.5 % (3.8-10.2); NEUT % 59.6 % (42.8-82.8); PLATELET COUNT 361 K/MM3 (134-434); RBC 4.44 M/mm3 (3.60-5.2); RDW 17.4 % (11.6-15.6); WHITE BLOOD COUNT 8.7 K/mm3 (4.0-10.0)
[2019-08-27 09:38] LABS: EPI CELLS 2.6 /HPF (0-5/HPF); HYALINE CASTS 7 /lpf (0-8); URINE APPEARANCE CLEAR; URINE BACTERIA 7.2 /hpf (NEGATIVE); URINE BILIRUBIN NEGATIVE (NEGATIVE); URINE COLOR YELLOW; URINE GLUCOSE (UA) 3+ (NEGATIVE); URINE KETONE NEGATIVE (NEGATIVE); URINE LEUK ESTERASE NEGATIVE (NEGATIVE); URINE NITRITE NEGATIVE (NEGATIVE); URINE PROTEIN NEGATIVE (NEGATIVE); URINE RBC 1 /hpf (0-4); URINE UROBILINOGEN 0.2 mg/dL (0.2-1.0); URINE WBC 2 /hpf (0-5)
[2019-08-27] MEDS ORDERED: METHOCARBAMOL 500 MG TABLET PO ONE (09:38)
[2019-08-27] MEDS ORDERED: KETOROLAC TROMETHAMINE 60 MG/2 ML VIAL IM ONE (09:38)
[2019-08-27] MEDS ORDERED: KETOROLAC TROMETHAMINE 60 MG/2 ML VIAL ONE (09:49)
[2019-08-27] MEDS ORDERED: METHOCARBAMOL 500 MG TABLET ONE (09:49)
[2019-08-27 09:53] LABS: ALBUMIN 3.3 g/dl (3.4-5.0); BILIRUBIN,TOTAL 0.2 mg/dL (0.2-1); BLOOD UREA NITROGEN 10.3 mg/dL (7-18); CALCIUM 8.6 mg/dL (8.5-10.1); CREATININE 1.1 mg/dL (0.55-1.3); POTASSIUM 4.3 mmol/L (3.5-5.1); TOT PROT 6.6 g/dl (6.4-8.2)
--- NOTE | 2019-08-27 10:07 | PDOC ---
History of Present Illness <Damaris Rodriguez - Last Filed: 08/27/19 10:13> - General History Source: Patient Exam Limitations: Clinical Condition - History of Present Illness Initial Comments: 08/27/19 10:03 Patient with past medical history of COPD, remote history of UTIs present with complaint of one-week history of bilateral lower back pain which is worse with getting up from sitting position or laying position. Patient reported bilateral low back pain as spasm pains to lower back. Denies any trauma or injury to back. Denies urinary frequency, dysuria, burning with urination, nausea or vomiting. Denies fever or chills. Patient report taking Motrin over- the-counter for p.o. with minimal improvement. Denies any other symptoms Is this a multiple visit Asthma Patient?: No Timing/Duration: 1 week <FranciscoAlex - Last Filed: 08/27/19 10:49> - General Chief Complaint: Urinary Problem Stated Complaint: BACK PAIN Time Seen by Provider: 08/27/19 09:04 Past History <Damaris Rodriguezchristina - Last Filed: 08/27/19 10:13> - Past Medical History Anemia: No Asthma: Yes Cancer: No Cardiac Disorders: No CVA: No COPD: No CHF: No Dementia: No Diabetes: Yes GI Disorders: No Disorders: No HTN: No Hypercholesterolemia: No Liver Disease: No Psychiatric Problems: Yes (depression/anxiety schioeffective disorder) Seizures: No Thyroid Disease: No - Reproductive History (#): 8 Para: 2 Cervical CA: No Dysfunctional Uterine Bleeding: No Ectopic : No Endometrial CA: No Polycystic Ovaries: No Therapeutic (s) & number: Yes (x4) Tubal Ligation: No Spontaneous : 2 - Immunization History Immunization Up to Date: No - Psycho Social/Smoking Cessation Hx Smoking Status: Yes Smoking History: Current every day smoker Have you smoked in the past 12 months: No Number of Cigarettes Smoked Daily: 10 Information on smoking cessation initiated: No 'Breaking Loose' booklet given: 07/28/15 Hx Alcohol Use: No Drug/Substance Use Hx: No Substance Use Type: None <Alex Singh - Last Filed: 08/27/19 10:49> - Past Medical History Allergies/Adverse Reactions: Allergies Allergy/AdvReac Type Severity Reaction Status Date / Time No Known Allergies Allergy Verified 08/27/19 08:32 Home Medications: Ambulatory Orders Aripiprazole [Abilify -] 15 mg PO HS 02/01/13 Fluphenazine HCl [Prolixin -] 5 mg PO HS 07/28/15 Albuterol Sulfate Inhaler - [Ventolin HFA Inhaler -] 1 - 2 inh PO QID PRN Acetaminophen [Tylenol .Regular Strength -] 650 mg PO Q6H PRN tablet 04/06/19 Albuterol 2.5/Ipratropium 0.5 [Duoneb -] 1 amp NEB RQID amp 04/06/19 Azithromycin [Zithromax Tri-Shailesh (3 DAYS) -] 500 mg PO DAILY #3 tablet 04/06/19 Glipizide [Glucotrol Xl] 5 mg PO DAILY 30 Days #30 tab.er.24 04/06/19 Montelukast Na [Singulair -] 10 mg PO HS #30 tablet 04/06/19 Nebulizer [Aeroeclipse II] 1 each MC PRN #1 each 04/06/19 Pantoprazole Sodium [Protonix -] 40 mg PO DAILY #30 tablet.ec 04/06/19 Sitagliptin Phosphate [Januvia -] 100 mg PO DAILY@0700 #30 ud 04/06/19 metFORMIN HCL [Glucophage -] 1,000 mg PO BIDI #60 tablet 04/06/19 predniSONE [Deltasone -] 20 mg PO DAILY #10 tablet 04/06/19 Methocarbamol [Robaxin -] 500 mg PO BID PRN #14 tablet 08/27/19 Methylprednisolone [Medrol Dose Shailesh] 4 mg PO ASDIR #21 tablet 08/27/19 Review of Systems - Review of Systems Able to Perform ROS?: Yes Is the patient limited Peruvian proficient: No Constitutional: No: Chills, Fever, Malaise HEENTM: No: Symptoms Reported, See HPI, Eye Pain, Blurred Vision, Tearing, Recent change in vision, Double Vision, Cataracts, Ear Pain, Ocular Prothesis, Ear Discharge, Nose Pain, Nose Congestion, Tinnitus, Nose Bleeding, Hearing Loss , Throat Pain, Throat Swelling, Mouth Pain, Dental Problems, Difficulty Swallowing, Mouth Swelling, Other Respiratory: No: Symptoms reported, See HPI, Cough, Orthopnea, Shortness of Breath, SOB with Exertion, SOB at Rest, Stridor, Wheezing, Productive cough, Hemoptysis, Other Cardiac (ROS): No: Symptoms Reported, See HPI, Chest Pain, Edema, Irregular Heart Rate, Lightheadedness, Palpitations, Syncope, Chest Tightness, Other ABD/GI: No: Symptoms Reported, See HPI, Abdominal Distended, Abd. Pain w/ defecation, Blood Streaked Bowels, Constipated, Diarrhea, Difficulty Swallowing , Nausea, Poor Appetite, Poor Fluid Intake, Rectal Bleeding, Vomiting, Indigestion, Abdominal cramping, Tarry Stools, Other : No: Symptoms Reported, Burning, Discharge, Frequency, Urgency Musculoskeletal: Yes: Symptoms Reported, See HPI, Back Pain, Muscle Pain Integumentary: No: Symptoms Reported Neurological: No: Symptoms reported, Numbness, Paresthesia, Tingling, Weakness All Other Systems: Reviewed and Negative <Alex Singh - Last Filed: 08/27/19 10:49> *Physical Exam - Vital Signs Last Vital Signs Temp Pulse Resp BP Pulse Ox 97.8 F 83 17 112/82 97 08/27/19 08:32 08/27/19 08:32 08/27/19 08:32 08/27/19 08:32 08/27/19 08:32 <Damaris Rodriguez - Last Filed: 08/27/19 10:13> - Vital Signs Last Vital Signs Temp Pulse Resp BP Pulse Ox 97.8 F 83 17 112/82 97 08/27/19 08:32 08/27/19 08:32 08/27/19 08:32 08/27/19 08:32 08/27/19 08:32 - Physical Exam 08/27/19 10:06 GENERAL: Well developed, well nourished. Awake and alert in mild acute distress. CARDIOVASCULAR: Regular rate and rhythm. No murmurs, rubs, or gallops. PULMONARY: No evidence of respiratory distress. Lungs clear to auscultation bilaterally. No wheezing, rales or rhonchi. ABDOMINAL: Soft. Non-tender. Non-distended. No rebound or guarding. No organomegaly. Normoactive bowel sounds MUSCULOSKELETAL : Moderate tenderness over posterior paravertebral muscle of lumbosacral's spine of L3-S1 on bilateral sides. No midline tenderness. No bony deformities SKIN: Warm and dry. Normal capillary refill. No rashes. NEUROLOGICAL: Alert, awake, appropriate. No motor deficits in the lower extremities. Gait is normal without ataxia. PSYCHIATRIC: Cooperative. Good eye contact. Appropriate mood and affect. General Appearance: Yes: Nourished, Appropriately Dressed, Mild Distress <Alex Singh - Last Filed: 08/27/19 10:49> ED Treatment Course - LABORATORY CBC & Chemistry Diagram: 08/27/19 09:10 08/27/19 09:16 - ADDITIONAL ORDERS Additional order review: Laboratory Results 08/27/19 08/27/19 08/27/19 09:16 09:10 09:10 Sodium 136 Potassium 4.3 Chloride 105 Carbon Dioxide 24 Anion Gap 7 L BUN 10.3 Creatinine 1.1 Est GFR (CKD-EPI)AfAm 70.71 Est GFR (CKD-EPI)NonAf 61.01 Random Glucose 376 H Calcium 8.6 Total Bilirubin 0.2 AST 10 L ALT 17 Alkaline Phosphatase 107 Total Protein 6.6 Albumin 3.3 L Urine Color Yellow Urine Appearance Clear Urine pH 5.0 Ur Specific Amelia 1.023 Urine Protein Negative Urine Glucose (UA) 3+ H Urine Ketones Negative Urine Blood Trace Urine Nitrite Negative Urine Bilirubin Negative Urine Urobilinogen 0.2 Ur Leukocyte Esterase Negative Urine WBC (Auto) 2 Urine RBC (Auto) 1 Urine Casts (Auto) 7 U Epithel Cells (Auto) 2.6 Urine Bacteria (Auto) 7.2 Urine HCG, Qual Negative 08/27/19 09:10 RBC 4.44 MCV 83.8 MCHC 32.8 RDW 17.4 H MPV 7.4 L Neutrophils % 59.6 D Lymphocytes % 31.2 D Monocytes % 6.5 D Eosinophils % 2.2 D Basophils % 0.5 - Medications Given in the ED: ED Medications Discontinued Medications Generic Name Dose Route Start Last Admin Trade Name Freq PRN Reason Stop Dose Admin Ketorolac Tromethamine 60 mg 08/27/19 09:38 08/27/19 09:54 Toradol Injection - IM 08/27/19 09:39 60 mg ONCE ONE Administration Methocarbamol 500 mg 08/27/19 09:38 08/27/19 09:54 Robaxin - PO 08/27/19 09:39 500 mg ONCE ONE Administration <Damaris Rodriguez - Last Filed: 08/27/19 10:13> - LABORATORY CBC & Chemistry Diagram: 08/27/19 09:10 08/27/19 09:16 - ADDITIONAL ORDERS Additional order review: Laboratory Results 08/27/19 08/27/19 08/27/19 09:16 09:10 09:10 Sodium 136 Potassium 4.3 Chloride 105 Carbon Dioxide 24 Anion Gap 7 L BUN 10.3 Creatinine 1.1 Est GFR (CKD-EPI)AfAm 70.71 Est GFR (CKD-EPI)NonAf 61.01 Random Glucose 376 H Calcium 8.6 Total Bilirubin 0.2 AST 10 L ALT 17 Alkaline Phosphatase 107 Total Protein 6.6 Albumin 3.3 L Urine Color Yellow Urine Appearance Clear Urine pH 5.0 Ur Specific Amelia 1.023 Urine Protein Negative Urine Glucose (UA) 3+ H Urine Ketones Negative Urine Blood Trace Urine Nitrite Negative Urine Bilirubin Negative Urine Urobilinogen 0.2 Ur Leukocyte Esterase Negative Urine WBC (Auto) 2 Urine RBC (Auto) 1 Urine Casts (Auto) 7 U Epithel Cells (Auto) 2.6 Urine Bacteria (Auto) 7.2 Urine HCG, Qual Negative 08/27/19 09:10 RBC 4.44 MCV 83.8 MCHC 32.8 RDW 17.4 H MPV 7.4 L Neutrophils % 59.6 D Lymphocytes % 31.2 D Monocytes % 6.5 D Eosinophils % 2.2 D Basophils % 0.5 - Medications Given in the ED: ED Medications Discontinued Medications Generic Name Dose Route Start Last Admin Trade Name Freq PRN Reason Stop Dose Admin Ketorolac Tromethamine 60 mg 08/27/19 09:38 08/27/19 09:54 Toradol Injection - IM 08/27/19 09:39 60 mg ONCE ONE Administration Methocarbamol 500 mg 08/27/19 09:38 08/27/19 09:54 Robaxin - PO 08/27/19 09:39 500 mg ONCE ONE Administration <Alex Singh - Last Filed: 08/27/19 10:49> Medical Decision Making - Medical Decision Making The patient was seen and evaluated in conjunction with midlevel provider under my direct supervision, ancillary studies were reviewed. I agree with the plan as outlined with NATHAN Singh. HPI, workup/dispo as outlined. VS reviewed, wnl. labs and lytes normal. UA neg for infection, not likely msk back pain, no midline sx. treated with analgesia, lido patch, supportive care, rest, anticipate discharge, pcp followup, return precautions 08/27/19 10:14 <Damaris Rodriguez - Last Filed: 08/27/19 10:13> - Medical Decision Making 08/27/19 10:04 Patient with past medical history of COPD, remote history of UTIs present with complaint of one-week history of bilateral lower back pain which is worse with getting up from sitting position or laying position. Patient reported bilateral low back pain as spasm pains to lower back. Denies any trauma or injury to back. Denies urinary frequency, dysuria, burning with urination, nausea or vomiting. Denies fever or chills. Patient report taking Motrin over- the-counter for p.o. with minimal improvement. Denies any other symptoms Exam significant for moderate tenderness of bilateral paravertebral muscle of lumbosacral spine of L3-S1. No midline tenderness. Negative straight leg test. Patient symptoms likely musculoskeletal pain with spasm versus less likely pyelonephritis. UA, urine culture, urine hCG lab ordered. CBC, CMP labs ordered to rule out elevated WBC. Toradol 60 mg IM ordered for pain and Robaxin 500 mg p.o. ordered for spasm. Reassess after lab results 08/27/19 10:47 Patient with improvement in pain post Toradol IM and robaxin Po . labs shows no acute abnormality. Patient stable for discharge with anti-inflammatory and muscle relaxer with advised to do hot compresses and neurospine f/u <Alex Singh - Last Filed: 08/27/19 10:49> Discharge <Damaris Rodriguez - Last Filed: 08/27/19 10:13> - Discharge Information Problems reviewed: Yes - Admission No <Alex Singh - Last Filed: 08/27/19 10:49> - Discharge Information Clinical Impression/Diagnosis: Back spasm Lumbago without sciatica Qualifiers: Chronicity: acute Back pain laterality: bilateral Qualified Code(s): M54.5 - Low back pain Condition: Improved Disposition: HOME - Additional Discharge Information Prescriptions: Methocarbamol [Robaxin -] 500 mg PO BID PRN #14 tablet PRN Reason: Back Pain Methylprednisolone [Medrol Dose Shailesh] 4 mg PO ASDIR #21 tablet - Follow up/Referral Referrals: Jimmy Faria MD, [facility] [Staff Physician] - - Patient Discharge Instructions Patient Printed Discharge Instructions: DI for Low Back Pain Additional Instructions: your blood work is normal . Your symptoms is likely from muscle spasm . Take prescribed medication as needed for back pains. Apply hot compresses as needed for pain. Follow-up with referred orthopedics news content specialist if no improvement in 4 days - Post Discharge Activity
[2019-08-27] MEDS ORDERED: LIDOCAINE 5% TOPICAL PATCH TP ONE (10:22)
[2019-08-27] MEDS ORDERED: LIDOCAINE 5% TOPICAL PATCH ONE (10:43)
[2019-08-27 10:49] VITALS: BP 137/74; PULSE 67
== END 2019-08-27 10:49 | disposition home or self-care (01) ==
LOC: JER 08:16
PROC: 3E0233Z Introduction of Anti-inflammatory into Muscle, Percutaneous Approach (ICD-10-PCS; principal; 2019-08-27)
DX: M62.830 Muscle spasm of back (principal); E11.9 Type 2 diabetes mellitus without complications; Z79.84 Long term (current) use of oral hypoglycemic drugs; J45.998 Other asthma; J44.9 Chronic obstructive pulmonary disease, unspecified; F17.210 Nicotine dependence, cigarettes, uncomplicated
CPT/HCPCS: 36415; 80053; 81003; 84703; 85025; 87086; 96372; 99282-25

== ENCOUNTER 2019-08-30 14:49 | Emergency (ER) | payer OTHER ==
[2019-08-30 14:59] VITALS: BP 112/78; PULSE 91; TEMP 97.3; BMI 44.2
--- NOTE | 2019-08-30 14:59 | PDOC ---
Rapid Medical Evaluation Chief Complaint: Back Pain Time Seen by Provider: 08/30/19 14:56 Medical Evaluation: Allergies Allergy/AdvReac Type Severity Reaction Status Date / Time No Known Allergies Allergy Verified 08/30/19 14:56 08/30/19 14:57 I have performed a brief in-person evaluation of this patient. The patient presents with a chief complaint of:lower back pain x 2 weeks. Seen for same 08/27 and given robaxin and medrol dose pack w/ no relief. No sensory changes, saddle anes, or incontinence. No sxs, n/v/f/c. No trauma. H/o HTN, DM, COPD, unclear psych hx Pertinent physical exam findings:guille uncomfortable I have ordered the following: The patient will proceed to the ED for further evaluation Discharge Disposition - Diagnosis Back pain Qualifiers: Back pain location: low back pain Chronicity: unspecified Back pain laterality : bilateral Sciatica presence: without sciatica Qualified Code(s): M54.5 - Low back pain - Referrals - Patient Instructions - Post Discharge Activity
[2019-08-30] MEDS ORDERED: KETOROLAC TROMETHAMINE 30 MG/1 ML VIAL IM ONE (15:45)
[2019-08-30] MEDS ORDERED: KETOROLAC TROMETHAMINE 60 MG/2 ML VIAL IM ONE (15:45)
[2019-08-30] MEDS ORDERED: diazePAM 5 MG TABLET ONE (15:46)
[2019-08-30] MEDS ORDERED: KETOROLAC TROMETHAMINE 30 MG/1 ML VIAL ONE (15:46)
[2019-08-30] MEDS ORDERED: diazePAM 5 MG TABLET PO ONE (15:46)
--- NOTE | 2019-08-30 15:55 | PDOC ---
History of Present Illness - General Chief Complaint: Back Pain Stated Complaint: BACK PAIN Time Seen by Provider: 08/30/19 14:56 History Source: Patient, Old Records Exam Limitations: No Limitations - History of Present Illness Initial Comments: 08/30/19 15:46 CHIEF COMPLAINT: Lower back pain HISTORY OF PRESENT ILLNESS:44-year-old female, Nonradiating pain, no neurosensory deficits, no bowel or bladder difficulty incontinence or urinary retention, no saddle anesthesia, no footdrop. No history of IVDU or hisotry of cancer. Pain is 9/10 she describes as a pulling sensation in her lower back muscles. Pain worsens with flexion and extension of the spine. REVIEW OF SYSTEMS: GENERAL: Afebrile, denies any weakness RESPIRATORY: No cough, wheezing, or hemoptysis. CARDIAC: No chest pain or shortness of breath MUSCULOSKELETAL: Pain to generalized lower back. No point tenderness. SKIN : No erythema, no bruising, no deformity. GI/: Denies any abdominal pain, no urinary difficulty, incontinence or urinary retention. RECTAL: Denies any difficulty this A.m. NEUROLOGICAL: Denies any numbness or tingling. No neurosensory deficits. PHYSICAL EXAM: GENERAL: The patient is awake, alert, and fully oriented, in no acute distress. RESPIRATORY: Lungs clear bilaterally, no rhonchi wheezes or crackles CARDIAC: S1-S2 audible, no murmur rub or gallop MUSCULOSKELETAL: Pain to generalized lower back, nonradiating, no tingling or sensory deficit. Less than 2 second cap refill, +2 pedal pulses. No spinal point tenderness. Normal reflexive and no deficits to sensation or strength. Palpable muscle spasms present in the lumbar paraspinous muscles bilaterally. GI/: Abdomen soft, nontender, nondistended. No rebound tenderness. No masses palpable. RECTAL: Deferred patient with no neurological findings SKIN: Warm, Dry, normal turgor, no erythema, no edema no bruising. Past History - Past Medical History Allergies/Adverse Reactions: Allergies Allergy/AdvReac Type Severity Reaction Status Date / Time No Known Allergies Allergy Verified 08/30/19 14:56 Home Medications: Ambulatory Orders Aripiprazole [Abilify -] 15 mg PO HS 02/01/13 Fluphenazine HCl [Prolixin -] 5 mg PO HS 07/28/15 Albuterol Sulfate Inhaler - [Ventolin HFA Inhaler -] 1 - 2 inh PO QID PRN Acetaminophen [Tylenol .Regular Strength -] 650 mg PO Q6H PRN tablet 04/06/19 Albuterol 2.5/Ipratropium 0.5 [Duoneb -] 1 amp NEB RQID amp 04/06/19 Azithromycin [Zithromax Tri-Shailesh (3 DAYS) -] 500 mg PO DAILY #3 tablet 04/06/19 Glipizide [Glucotrol Xl] 5 mg PO DAILY 30 Days #30 tab.er.24 04/06/19 Montelukast Na [Singulair -] 10 mg PO HS #30 tablet 04/06/19 Nebulizer [Aeroeclipse II] 1 each MC PRN #1 each 04/06/19 Pantoprazole Sodium [Protonix -] 40 mg PO DAILY #30 tablet.ec 04/06/19 Sitagliptin Phosphate [Januvia -] 100 mg PO DAILY@0700 #30 ud 04/06/19 metFORMIN HCL [Glucophage -] 1,000 mg PO BIDI #60 tablet 04/06/19 predniSONE [Deltasone -] 20 mg PO DAILY #10 tablet 04/06/19 Methocarbamol [Robaxin -] 500 mg PO BID PRN #14 tablet 08/27/19 Methylprednisolone [Medrol Dose Shailesh] 4 mg PO ASDIR #21 tablet 08/27/19 Anemia: No Asthma: Yes Cancer: No Cardiac Disorders: No CVA: No COPD: No CHF: No Dementia: No Diabetes: Yes GI Disorders: No Disorders: No HTN: No Hypercholesterolemia: No Liver Disease: No Psychiatric Problems: Yes (depression/anxiety schioeffective disorder) Seizures: No Thyroid Disease: No - Reproductive History (#): 8 Para: 2 Cervical CA: No Dysfunctional Uterine Bleeding: No Ectopic : No Endometrial CA: No Polycystic Ovaries: No Therapeutic (s) & number: Yes (x4) Tubal Ligation: No Spontaneous : 2 - Immunization History Immunization Up to Date: No - Psycho Social/Smoking Cessation Hx Smoking Status: Yes Smoking History: Current every day smoker Have you smoked in the past 12 months: No Number of Cigarettes Smoked Daily: 10 Information on smoking cessation initiated: No 'Breaking Loose' booklet given: 07/28/15 Hx Alcohol Use: No Drug/Substance Use Hx: No Substance Use Type: None Trauma Specific PMHX - Complaint Specific PMHX Back Injury: No Neck Injury: No *Physical Exam - Vital Signs Last Vital Signs Temp Pulse Resp BP Pulse Ox 97.3 F L 91 H 18 112/78 100 08/30/19 14:57 08/30/19 14:57 08/30/19 14:57 08/30/19 14:57 08/30/19 14:57 Medical Decision Making - Medical Decision Making 08/30/19 15:50 A/P: 44-year-old woman with muscle spasms in the lower back Patient has been taken Robaxin as an outpatient as well as [id number] Motrin. Last dose of medication was approximately 10:00 this morning. Toradol 30 mg IM now Valium 5 mg orally now Reassess Discharge - Discharge Information Problems reviewed: Yes Clinical Impression/Diagnosis: Back pain Qualifiers: Back pain location: low back pain Chronicity: unspecified Back pain laterality : bilateral Sciatica presence: without sciatica Qualified Code(s): M54.5 - Low back pain Condition: Stable Disposition: HOME - Admission No - Follow up/Referral Referrals: Christopher Rutherford MD [Primary Care Provider] - Jimmy Faria MD, [facility] [Staff Physician] - - Patient Discharge Instructions Additional Instructions: Rest, no heavy lifting or exercise until pain is resolved Hot soaks to neck and low back as often as possible/hot showers or Jacuzzis No massage or therapy until spasm is gone Continue naproxen 2-220 mg tablets every 12 hours for the next 3 days then as needed for pain and swelling Continue previously prescribed Robaxin. If not significant improvement within 24 hours with medication and rest regime, followup with private physician for change in medications and /or therapy. - Post Discharge Activity
== END 2019-08-30 16:10 | disposition home or self-care (01) ==
LOC: JERFT 14:49
PROC: 3E0233Z Introduction of Anti-inflammatory into Muscle, Percutaneous Approach (ICD-10-PCS; principal; 2019-08-30)
DX: M54.5 Low back pain (principal)
CPT/HCPCS: 96372; 99282-25

== ENCOUNTER 2019-09-01 11:35 | Emergency (ER) | payer OTHER ==
[2019-09-01 11:53] VITALS: BMI 44.2
[2019-09-01] MEDS ORDERED: BACLOFEN 10 MG TABLET (FP) PO ONE (13:01)
[2019-09-01] MEDS ORDERED: METHOCARBAMOL 500 MG TABLET PO ONE (13:03)
--- NOTE | 2019-09-01 13:09 | PDOC ---
History of Present Illness - General Chief Complaint: Chronic pain Stated Complaint: BACK PAIN History Source: Patient Exam Limitations: No Limitations - History of Present Illness Initial Comments: 09/01/19 13:08 44 yo F with a hx of shzioaffective disorder, depression, and DM presents to the emergency department with worsening back pain with worsening ambulation. Per the patient, she states she was recently seen in our emergency multiple times for worsening back pain with partial relief through intervention. Her back pain had gradual onset for the previous 2-3 weeks with acute worsening over the past 2 days. According to the patient, she states she feels exquisite tenderness in her lower back bilaterally and weakness in her legs. She is unsure if she is unable to walk secondary to pain or weakness. Denies loss of sensation in her LE. Denies the following: urinary incontinence, bowel incontinence, ataxia, traumatic injuries, IV drug abuse, and fevers. Denies the following: headache, ears/nose/throat pain, chest pain, SOB, abdominal pain, dysuria, hematuria, diarrhea, and leg swelling Allergies: NKDA 09/01/19 13:09 Past History - Past Medical History Allergies/Adverse Reactions: Allergies Allergy/AdvReac Type Severity Reaction Status Date / Time No Known Allergies Allergy Verified 08/30/19 14:56 Home Medications: Ambulatory Orders Aripiprazole [Abilify -] 15 mg PO HS 02/01/13 Fluphenazine HCl [Prolixin -] 5 mg PO HS 07/28/15 Albuterol Sulfate Inhaler - [Ventolin HFA Inhaler -] 1 - 2 inh PO QID PRN Acetaminophen [Tylenol .Regular Strength -] 650 mg PO Q6H PRN tablet 04/06/19 Albuterol 2.5/Ipratropium 0.5 [Duoneb -] 1 amp NEB RQID amp 04/06/19 Azithromycin [Zithromax Tri-Shailesh (3 DAYS) -] 500 mg PO DAILY #3 tablet 04/06/19 Glipizide [Glucotrol Xl] 5 mg PO DAILY 30 Days #30 tab.er.24 04/06/19 Montelukast Na [Singulair -] 10 mg PO HS #30 tablet 04/06/19 Nebulizer [Aeroeclipse II] 1 each MC PRN #1 each 04/06/19 Pantoprazole Sodium [Protonix -] 40 mg PO DAILY #30 tablet.ec 04/06/19 Sitagliptin Phosphate [Januvia -] 100 mg PO DAILY@0700 #30 ud 04/06/19 metFORMIN HCL [Glucophage -] 1,000 mg PO BIDI #60 tablet 04/06/19 predniSONE [Deltasone -] 20 mg PO DAILY #10 tablet 04/06/19 Methocarbamol [Robaxin -] 500 mg PO BID PRN #14 tablet 08/27/19 Methylprednisolone [Medrol Dose Shailesh] 4 mg PO ASDIR #21 tablet 08/27/19 Naproxen 500 mg PO BID PRN #14 tablet 09/01/19 Anemia: No Asthma: Yes Cancer: No Cardiac Disorders: No CVA: No COPD: No CHF: No Dementia: No Diabetes: Yes GI Disorders: No Disorders: No HTN: No Hypercholesterolemia: No Liver Disease: No Psychiatric Problems: Yes (depression/anxiety schioeffective disorder) Seizures: No Thyroid Disease: No - Reproductive History (#): 8 Para: 2 Cervical CA: No Dysfunctional Uterine Bleeding: No Ectopic : No Endometrial CA: No Polycystic Ovaries: No Therapeutic (s) & number: Yes (x4) Tubal Ligation: No Spontaneous : 2 - Immunization History Immunization Up to Date: No - Psycho Social/Smoking Cessation Hx Smoking Status: Yes Smoking History: Never smoked Have you smoked in the past 12 months: No Number of Cigarettes Smoked Daily: 10 Information on smoking cessation initiated: No 'Breaking Loose' booklet given: 07/28/15 Hx Alcohol Use: No Drug/Substance Use Hx: No Substance Use Type: None Review of Systems - Review of Systems Able to Perform ROS?: Yes Is the patient limited [place]an proficient: No Constitutional: Yes: Weakness. No: Chills, Diaphoresis, Fever HEENTM: No: Eye Pain, Ear Pain, Nose Pain, Throat Pain, Mouth Pain Respiratory: No: Cough, Shortness of Breath, Hemoptysis Cardiac (ROS): No: Chest Pain, Lightheadedness, Palpitations, Chest Tightness ABD/GI: No: Constipated, Diarrhea, Nausea, Rectal Bleeding, Vomiting, Tarry Stools : No: Burning, Dysuria, Hematuria, Incontinence Musculoskeletal: Yes: Back Pain. No: Joint Pain, Neck Pain Integumentary: No: Bruising, Erythema, Rash Neurological: Yes: Weakness, Unsteady Gait. No: Headache, Numbness, Tingling, Tremors Psychiatric: No: Change in Appetite Endocrine: No: Unexplained Weight Gain Hematologic/Lymphatic: No: Anemia *Physical Exam - Vital Signs Last Vital Signs Temp Pulse Resp BP Pulse Ox 97.9 F 88 16 91/55 L 96 09/01/19 11:35 09/01/19 11:35 09/01/19 11:35 09/01/19 11:35 09/01/19 11:35 - Physical Exam General Appearance: Yes: Nourished, Appropriately Dressed, Obese. No: Apparent Distress, Intoxicated HEENT: positive: EOMI, AARON, Normal Voice, Symmetrical, Pharynx Normal, Hearing Grossly Normal. negative: Pale Conjunctivae, Scleral Icterus (R), Scleral Icterus (L), Muffled/Hoarse voice, Pharyngeal Erythema, Tonsillar Exudate, Tonsillar Erythema, Nasal Congestion, Rhinorrhea, Sinus Tenderness, Excessive drooling Neck: positive: Trachea midline, Supple. negative: Tender, Lymphadenopathy (R) , Lymphadenopathy (L), Tender lateral, Tender midline Respiratory/Chest: positive: Lungs Clear, Normal Breath Sounds. negative: Chest Tender, Respiratory Distress, Accessory Muscle Use, Crackles, Rales, Rhonchi, Stridor, Wheezing Cardiovascular: positive: Regular Rhythm, Regular Rate, S1, S2. negative: Systolic Murmur Gastrointestinal/Abdominal: positive: Normal Bowel Sounds, Flat, Soft. negative : Tender Lymphatic: negative: Adenopathy Musculoskeletal: positive: Normal Inspection, Vertebral Tenderness (lumbar spine L1-L5 and sacrum. tenderness to palpation in the left and right paraspinal region. ). negative: CVA Tenderness Extremity: positive: Normal Capillary Refill, Normal Inspection, Other (normal patella reflexes appropriate (2+ bilaterally). The ). negative: Normal Range of Motion (unable to raise legs on exam. no pain with passive ROM), Tender, Coldness, Cyanosis, Delayed Capillary Refill, Pedal Edema, Swelling, Calf Tenderness, Erythema Integumentary: positive: Normal Color, Dry, Warm. negative: Swelling, Ecchymosis Neurologic: positive: operations program manager II-XII NML intact, Fully Oriented, Alert, Normal Mood/ Affect, Normal Response. negative: Motor Strength 5/5 (4/5 strength LE bilaterally with hip flexion, extension, knee flexion, knee extension bilaterally. 5/5 with ankle dorsiflexion and plantar flexion bilaterally. ), EOM Palsy, Facial Droop, Sensory Deficit ED Treatment Course - LABORATORY CBC & Chemistry Diagram: 09/01/19 13:55 09/01/19 13:55 Medical Decision Making - Medical Decision Making 44 yo F with a hx of shzioaffective disorder, depression, and DM presents to the emergency department with worsening back pain with worsening ambulation. Initial vitals: Initial Vital Signs Temp Pulse Resp BP Pulse Ox 97.9 F 88 16 91/55 L 96 09/01/19 11:35 09/01/19 11:35 09/01/19 11:35 09/01/19 11:35 09/01/19 11:35 Work up: patient presents to the emergency department with weakness in her legs. concerns exist for a cauda equina syndrome with mechanical vs infectious etiology for cord compression. will obtain MRI of the cervical, thoracic, and lumbar region in order to rule out compression syndrome Laboratory Tests 09/01/19 09/01/19 09/01/19 13:55 13:55 13:55 WBC 11.9 H RBC 4.60 Hgb 12.4 Hct 38.0 MCV 82.6 MCH 26.9 MCHC 32.5 RDW 17.7 H Plt Count 369 MPV 7.9 Absolute Neuts (auto) 8.0 Neutrophils % 67.6 Lymphocytes % 24.2 D Monocytes % 6.4 Eosinophils % 1.2 Basophils % 0.6 Nucleated RBC % 0 ESR 10 PT with INR INR Sodium 132 L Potassium 5.5 H Chloride 101 Carbon Dioxide 27 Anion Gap 4 L BUN 16.3 Creatinine 0.9 Est GFR (CKD-EPI)AfAm 90.13 Est GFR (CKD-EPI)NonAf 77.76 Random Glucose 350 H Calcium 8.8 Total Bilirubin 0.3 AST 35 ALT 19 Alkaline Phosphatase 106 Creatine Kinase 115 Troponin I < 0.02 C-Reactive Protein 4.0 H Total Protein 6.6 Albumin 3.5 Serum , Qual 09/01/19 09/01/19 13:55 13:55 WBC RBC Hgb Hct MCV MCH MCHC RDW Plt Count MPV Absolute Neuts (auto) Neutrophils % Lymphocytes % Monocytes % Eosinophils % Basophils % Nucleated RBC % ESR PT with INR 14.40 H INR 1.22 H Sodium Potassium Chloride Carbon Dioxide Anion Gap BUN Creatinine Est GFR (CKD-EPI)AfAm Est GFR (CKD-EPI)NonAf Random Glucose Calcium Total Bilirubin AST ALT Alkaline Phosphatase Creatine Kinase Troponin I C-Reactive Protein Total Protein Albumin Serum , Qual Negative MRI was negative for acute process that would be suggestive of cord compression Patient's pain was under control with medications; it was advised to the patient to follow up with a rug touch up painter of which will be referred to her Discharge - Discharge Information Problems reviewed: Yes Clinical Impression/Diagnosis: Lumbago without sciatica Condition: Improved Disposition: HOME - Admission No - Additional Discharge Information Prescriptions: Naproxen 500 mg PO BID PRN #14 tablet PRN Reason: Pain - Follow up/Referral Referrals: Christopher Rutherford MD [Primary Care Provider] - Sanju Jaquez MD [Staff Physician] - Tom Haines MD [Staff Physician] - Lizeth Osborne MD [Non Staff, Medical] - Puma Morse MD [Non Staff, Medical] - Nicole Stubbs MD [Staff Physician] - - Patient Discharge Instructions Patient Printed Discharge Instructions: DI for Back Pain With Sciatica Additional Instructions: You were seen for the evaluation of your back pain, your MRI was negative for acute process. You need to be referred to a pain doctor. Please follow up with them and your primary care doctor within 1 week after discharge for follow up care and management., Please take ibuprofen and tylenol as directed on the label. Please return to the emergency department if you have worsening symptoms or new concerning symptoms. Thank you. - Post Discharge Activity Work/Back to School Note: Back to Work
[2019-09-01] MEDS ORDERED: ACETAMINOPHEN 1000 MG/100 ML VIAL (NON FORMULARY) IVPB ONE (13:48)
[2019-09-01] MEDS ORDERED: BACLOFEN 10 MG TABLET (FP) ONE (14:01)
[2019-09-01] MEDS ORDERED: ACETAMINOPHEN INJECTION 100 ML IVPB ONE (14:01)
[2019-09-01] MEDS ORDERED: METHOCARBAMOL 500 MG TABLET ONE (14:01)
[2019-09-01 14:37] LABS: BASO % 0.6 % (0-2.0); EOS % 1.2 % (0-4.5); HEMOGLOBIN 12.4 GM/dL (10.7-15.3); LYMPH % 24.2 % (8-40); MCH 26.9 pg (25.7-33.7); MCHC 32.5 g/dl (32.0-36.0); MEAN CELL VOLUME 82.6 fl (80-96); MEAN PLT VOLUME 7.9 fl (7.5-11.1); MONO % 6.4 % (3.8-10.2); NEUT % 67.6 % (42.8-82.8); PLATELET COUNT 369 K/MM3 (134-434); RDW 17.7 % (11.6-15.6); WHITE BLOOD COUNT 11.9 K/mm3 (4.0-10.0)
[2019-09-01] MEDS ORDERED: LORazepam 2 MG/ML SDV VIAL ONE (14:56)
[2019-09-01 15:05] LABS: INR 1.22 (0.83-1.09); PROTHROMBIN TIME (PATIENT) 14.4 SEC (9.7-13.0)
[2019-09-01 15:35] LABS: ALBUMIN 3.5 g/dl (3.4-5.0); ALK PHOS 106 U/L (45-117); ANION GAP 4 MMOL/L (8-16); BILIRUBIN,TOTAL 0.3 mg/dL (0.2-1); BLOOD UREA NITROGEN 16.3 mg/dL (7-18); CALCIUM 8.8 mg/dL (8.5-10.1); CHLORIDE 101 mmol/L (98-107); CO2 27 mmol/L (21-32); CREATININE 0.9 mg/dL (0.55-1.3); GLUCOSE,RANDOM 350 mg/dL (74-106); POTASSIUM 5.5 mmol/L (3.5-5.1); SGOT/AST 35 U/L (15-37); SGPT/ALT 19 U/L (13-61); SODIUM 132 mmol/L (136-145); TOT PROT 6.6 g/dl (6.4-8.2)
[2019-09-01 17:35] VITALS: BP 112/74; PULSE 81; TEMP 97.6
[2019-09-01] MEDS ORDERED: NAPROXEN 500 MG TABLET PO ONE (18:51)
[2019-09-01] MEDS ORDERED: SODIUM CHLORIDE 1,000 ML IV STA (18:52)
[2019-09-01] MEDS ORDERED: NAPROXEN 500 MG TABLET ONE (19:31)
--- NOTE | 2019-09-02 09:59 | EKG ---
Test Reason : Blood Pressure : / mmHG Vent. Rate : 075 BPM Atrial Rate : 075 BPM P-R Int : 158 ms QRS Dur : 080 ms QT Int : 392 ms P-R-T Axes : 052 038 048 degrees QTc Int : 437 ms NORMAL SINUS RHYTHM NORMAL ECG WHEN COMPARED WITH ECG OF 02-APR-2019 03:38, NO SIGNIFICANT CHANGE WAS FOUND Confirmed by ARIS MASSEY MD ([id number]) on 09/02/2019 9:59:19 AM Referred By: Confirmed By:ARIS MASSEY MD
--- NOTE | 2019-09-05 17:04 | PDOC ---
Documentation entered by Alden Allen SCRIBE, acting as scribe for Ashley Miller MD. Ashley Miller MD: This documentation has been prepared by the Alejandro figueredo Daniel, SCRIBE, under my direction and personally reviewed by me in its entirety. I confirm that the documentation accurately reflects all work, treatment, procedures, and medical decision making performed by me. Attending Attestation - Resident Resident Name: Ravi Carmona - ED Attending Attestation I have performed the following: I have examined & evaluated the patient, The case was reviewed & discussed with the resident, I agree w/resident's findings & plan, Exceptions are as noted - HPI HPI: 09/01/19 13:48 The patient is a 44 year old female with a past medical history of schizoaffective disorder, depression, here today for evaluation of low back pain. The patient reports that her back pain started 2-3 weeks ago and denies any trauma or heavy lifting leading up to it. Patient has been seen here 2 times this month for similar sxs. She states that her pain has been getting worse and states that she is no longer able to walk due to the pain and also to feeling weak. She notes weakness in her hips and shoulders bilaterally. Denies urine/stool incontinence or retention. Patient denies headache, lightheadedness. Denies fever, chills. Denies chest pain, shortness of breath. Denies nausea, vomiting, diarrhea, abdominal pain. Allergies: NKA PCP: Christopher Rutherford - Physicial Exam PE: 09/01/19 13:48 Agree with resident exam - Medical Decision Making 44yo F presents to the ED for the 3rd time this week for low back pain +weakness to LE on exam To r/o cauda equina/cord compression, an MRI cervical, thoracic, and lumbar spine was obtained which was negative, but limited in proximal cervical spine due to artifact. A CT c-spine was recommended by radiology which was negative for acute path Pt reporting improvement of pain after robaxin, baclofen, naproxen, will DC with naproxen Ambulatory in ED Pt to be referred to pain management as an outpt Plan discussed at length with pt and partner who express understanding. I discussed the physical exam findings, ancillary test results and final diagnoses with the patient. I answered all of the patient's questions. The patient was satisfied with the care received and felt comfortable with the discharge plan and treatment plan. The patient will call their primary care physician within 24 hours to arrange follow-up and will return to the Emergency Department with any new, persistent or worsening symptoms.
== END 2019-09-01 20:01 | disposition home or self-care (01) ==
LOC: JER 11:35
DX: M54.5 Low back pain (principal); F25.9 Schizoaffective disorder, unspecified; F32.9 Major depressive disorder, single episode, unspecified; E11.9 Type 2 diabetes mellitus without complications; Z79.84 Long term (current) use of oral hypoglycemic drugs; J45.909 Unspecified asthma, uncomplicated
CPT/HCPCS: 36415; 72125-TC; 72141-TC; 72146-TC; 72148-TC; 80053; 82550; 84484; 84703; 85025; 85610; 85651; 86140; 93005; 93010; 99283-25; J0131; J0475; J7030

== ENCOUNTER 2019-09-03 11:00 | Observation (INO) | payer OTHER ==
--- NOTE | 2019-09-03 11:16 | PDOC ---
Rapid Medical Evaluation Chief Complaint: Back Pain Time Seen by Provider: 09/03/19 11:13 Medical Evaluation: Allergies Allergy/AdvReac Type Severity Reaction Status Date / Time No Known Allergies Allergy Verified 08/30/19 14:56 09/03/19 11:13 Patient is 44F with history of back pain, DM, recent visit with negative MRI here today with back pain. Took naproxen at home. Vitals normal and stable. Patient requiring wheelchair, moving all extremities, RRR, CTAB Patient to to fast track. Discharge Disposition - Diagnosis Back pain - Discharge Dispostion Condition at time of disposition: Stable - Referrals - Patient Instructions - Post Discharge Activity
[2019-09-03] MEDS ORDERED: morphine CARPU-JECT 2 MG/1 ML DISP.SYRIN IVPUSH ONE (13:33)
--- NOTE | 2019-09-03 13:44 | PDOC ---
History of Present Illness - General Chief Complaint: Back Pain Stated Complaint: BACK PAIN Time Seen by Provider: 09/03/19 11:13 History Source: Patient Exam Limitations: No Limitations - History of Present Illness Initial Comments: 09/03/19 13:03 44-year-old female presented to ED with complaints of worsening low back pain for the past week. Patient states was seen here 3 times prior along with receiving MRI/CT with no significant findings. Patient denies saddle anesthesia , incontinence, skin discoloration or lower extremity edema. Patient states pain radiates down her left lower extremity worsened with standing. Patient states today was unable to stand up and had to crawl around her home despite taking Naprosyn and other medication for discomfort. Occurred: reports: other Severity: reports: moderate, severe Pain Location: reports: back Method of Injury: Yes: unknown Modifying Factors: improves with: None Associated Symptoms (Fall): trouble walking Past History - Travel Traveled outside of the country in the last 30 days: No Close contact w/someone who was outside of country & ill: No - Past Medical History Allergies/Adverse Reactions: Allergies Allergy/AdvReac Type Severity Reaction Status Date / Time No Known Allergies Allergy Verified 09/03/19 11:14 Home Medications: Ambulatory Orders Aripiprazole [Abilify -] 15 mg PO HS 02/01/13 Fluphenazine HCl [Prolixin -] 5 mg PO HS 07/28/15 Albuterol Sulfate Inhaler - [Ventolin HFA Inhaler -] 1 - 2 inh PO QID PRN Acetaminophen [Tylenol .Regular Strength -] 650 mg PO Q6H PRN tablet 04/06/19 Albuterol 2.5/Ipratropium 0.5 [Duoneb -] 1 amp NEB RQID amp 04/06/19 Azithromycin [Zithromax Tri-Shailesh (3 DAYS) -] 500 mg PO DAILY #3 tablet 04/06/19 Glipizide [Glucotrol Xl] 5 mg PO DAILY 30 Days #30 tab.er.24 04/06/19 Montelukast Na [Singulair -] 10 mg PO HS #30 tablet 04/06/19 Nebulizer [Aeroeclipse II] 1 each MC PRN #1 each 04/06/19 Pantoprazole Sodium [Protonix -] 40 mg PO DAILY #30 tablet.ec 04/06/19 Sitagliptin Phosphate [Januvia -] 100 mg PO DAILY@0700 #30 ud 04/06/19 metFORMIN HCL [Glucophage -] 1,000 mg PO BIDI #60 tablet 04/06/19 predniSONE [Deltasone -] 20 mg PO DAILY #10 tablet 04/06/19 Methocarbamol [Robaxin -] 500 mg PO BID PRN #14 tablet 08/27/19 Methylprednisolone [Medrol Dose Shailesh] 4 mg PO ASDIR #21 tablet 08/27/19 Naproxen 500 mg PO BID PRN #14 tablet 09/01/19 Anemia: No Asthma: Yes Cancer: No Cardiac Disorders: No CVA: No COPD: No CHF: No Dementia: No Diabetes: Yes GI Disorders: No Disorders: No HTN: No Hypercholesterolemia: Yes Liver Disease: No Psychiatric Problems: Yes (depression/anxiety schioeffective disorder) Seizures: No Thyroid Disease: No - Reproductive History (#): 8 Para: 2 Cervical CA: No Dysfunctional Uterine Bleeding: No Ectopic : No Endometrial CA: No Polycystic Ovaries: No Therapeutic (s) & number: Yes (x4) Tubal Ligation: No Spontaneous : 2 - Immunization History Immunization Up to Date: No - Psycho Social/Smoking Cessation Hx Smoking Status: Yes Smoking History: Current every day smoker Have you smoked in the past 12 months: No Number of Cigarettes Smoked Daily: 10 Information on smoking cessation initiated: No 'Breaking Loose' booklet given: 07/28/15 Hx Alcohol Use: No Drug/Substance Use Hx: No Substance Use Type: None Patient Lives Alone: No Lives with/in: spouse/SO Trauma Specific PMHX - Complaint Specific PMHX Back Injury: No Neck Injury: No Review of Systems - Review of Systems Able to Perform ROS?: Yes Constitutional: No: Symptoms Reported HEENTM: No: Symptoms Reported Respiratory: No: Symptoms reported ABD/GI: No: Symptoms Reported : No: Symptoms Reported Musculoskeletal: Yes: Back Pain Integumentary: No: Symptoms Reported Neurological: No: Symptoms reported Endocrine: No: Symptoms Reported Hematologic/Lymphatic: No: Symptoms Reported *Physical Exam - Vital Signs Last Vital Signs Temp Pulse Resp BP Pulse Ox 98 F 86 18 131/78 99 09/03/19 11:11 09/03/19 11:11 09/03/19 11:11 09/03/19 11:11 09/03/19 11:11 - Physical Exam General Appearance: Yes: Nourished, Appropriately Dressed. No: Apparent Distress HEENT: negative: Pale Conjunctivae Neck: positive: Supple Respiratory/Chest: positive: Lungs Clear, Normal Breath Sounds. negative: Respiratory Distress, Accessory Muscle Use Cardiovascular: positive: Regular Rhythm, Regular Rate. negative: Murmur Gastrointestinal/Abdominal: positive: Soft. negative: Tenderness Musculoskeletal: positive: Other (Left lumbar paraspinous tenderness). negative : Vertebral Tenderness Integumentary: positive: Normal Color, Warm, Moist Neurologic: positive: Normal Mood/Affect, Motor Strength 5/5 (Able to transfer from wheelchair with one-to-one assistance to stretcher) ED Treatment Course - LABORATORY CBC & Chemistry Diagram: 09/03/19 13:44 09/03/19 13:44 Medical Decision Making - Medical Decision Making 09/03/19 13:00 Chief complaint: Worsening low back pain despite given medication patient states was unable to ambulate today and called the ambulance Exam: No vertebral tenderness. Patient with left lumbar tenderness along with left sciatic tenderness Plan: Labs, IV, IV morphine and will speak to her PCP Dr. Roel Rutherford Mother's home number is [phone] 09/03/19 14:09 Case discussed with Marisol Alvarez who agrees with patient and will be admitted for intractable back pain with consultation to neurology and physical therapy Discharge - Discharge Information Problems reviewed: Yes Clinical Impression/Diagnosis: Back pain, Intractable back pain Condition: Stable - Admission Yes - Follow up/Referral - Patient Discharge Instructions - Post Discharge Activity
--- NOTE | 2019-09-03 13:48 | HP ---
Admitting History and Physical - Primary Care Physician PCP: Christopher Rutherford - Admission Chief Complaint: back pain History of Present Illness: ER HISTORY 09/03/19 13:03 44-year-old female presented to ED with complaints of worsening low back pain for the past week. Patient states was seen here 3 times prior along with receiving MRI/CT with no significant findings. Patient denies saddle anesthesia , incontinence, skin discoloration or lower extremity edema. Patient states pain radiates down her left lower extremity worsened with standing. Patient states today was unable to stand up and had to crawl around her home despite taking Naprosyn and other medication for discomfort. Pt examined by me in the ER worsening back for 3 weeks-- she has been in ER frequently for back pain and had MRI done-- no significant findings per reports Denies any heavy lifting ,pulling or pushing States that when she tries to stand, she loses control of urine. Has radiation of pain to B/L hips ,across the abdomen, and to left lower extremity. Today she could not get OOB and was brought to ER She took Naproxen today without relief She called neurosurgeon for appointment and was told to go to the ER has tingling sensation to B/L thighs laterally History Source: Patient, Family Member Limitations to Obtaining History: No Limitations - Past Medical History Cardiovascular: Yes: HTN ...LMP: 03/14/16 Psych: Yes: Depression Endocrine: Yes: Diabetes Mellitus - Smoking History Smoking history: Current every day smoker Have you smoked in the past 12 months: No Aproximately how many cigarettes per day: 10 - Alcohol/Substance Use Hx Alcohol Use: No Home Medications - Allergies Allergies/Adverse Reactions: Allergies Allergy/AdvReac Type Severity Reaction Status Date / Time No Known Allergies Allergy Verified 09/03/19 11:14 - Home Medications Home Medications: Ambulatory Orders Aripiprazole [Abilify -] 15 mg PO HS 02/01/13 Fluphenazine HCl [Prolixin -] 5 mg PO HS 07/28/15 Albuterol Sulfate Inhaler - [Ventolin HFA Inhaler -] 1 - 2 inh PO QID PRN Acetaminophen [Tylenol .Regular Strength -] 650 mg PO Q6H PRN tablet 04/06/19 Albuterol 2.5/Ipratropium 0.5 [Duoneb -] 1 amp NEB RQID amp 04/06/19 Glipizide [Glucotrol Xl] 5 mg PO DAILY 30 Days #30 tab.er.24 04/06/19 Montelukast Na [Singulair -] 10 mg PO HS #30 tablet 04/06/19 Nebulizer [Aeroeclipse II] 1 each MC PRN #1 each 04/06/19 Pantoprazole Sodium [Protonix -] 40 mg PO DAILY #30 tablet.ec 04/06/19 Sitagliptin Phosphate [Januvia -] 100 mg PO DAILY@0700 #30 ud 04/06/19 metFORMIN HCL [Glucophage -] 1,000 mg PO BIDI #60 tablet 04/06/19 Methocarbamol [Robaxin -] 500 mg PO BID PRN #14 tablet 08/27/19 Methylprednisolone [Medrol Dose Shailesh] 4 mg PO ASDIR #21 tablet 08/27/19 Naproxen 500 mg PO BID PRN #14 tablet 09/01/19 Review of Systems - Review of Systems Constitutional: denies: Chills, Fever Musculoskeletal: reports: Back Pain, Muscle Weakness Physical Examination Vital Signs: Vital Signs Temperature 98 F 09/03/19 11:11 Pulse Rate 86 09/03/19 11:11 Respiratory Rate 18 09/03/19 11:11 Blood Pressure 131/78 09/03/19 11:11 O2 Sat by Pulse Oximetry (%) 99 09/03/19 11:11 Constitutional: Yes: Moderate Distress Cardiovascular: Yes: Regular Rate and Rhythm Respiratory: Yes: CTA Bilaterally Gastrointestinal: Yes: Normal Bowel Sounds, Soft, Abdomen, Obese, Tenderness ( lower abdomen) Musculoskeletal: Yes: Back Pain. No: Joint Swelling Edema: No Wound/Incision: Yes: Unapproximated Neurological: Yes: Alert, Weakness (B/L legs - left >right), Other (decreased sensations left) Psychiatric: Yes: Alert, Oriented Labs: Laboratory Results - last 24 hr 09/03/19 13:44 WBC 13.7 H RBC 4.73 Hgb 12.7 Hct 39.3 MCV 83.2 MCH 26.8 MCHC 32.2 RDW 17.3 H Plt Count 401 MPV 7.8 Absolute Neuts (auto) 10.1 H Neutrophils % 73.8 Lymphocytes % 19.2 D Monocytes % 4.9 Eosinophils % 1.1 Basophils % 1.0 Nucleated RBC % 0 Imaging - Results Cat Scan: Report Reviewed MRI: Report Reviewed Problem List - Problems (1) Diabetes Code(s): E11.9 - TYPE 2 DIABETES MELLITUS WITHOUT COMPLICATIONS Assessment/Plan PLAN Intractable back pain -- Morphine as needed -- Neurosurgical eval -- may need epidural injections -- physical therapy -- muscle relaxants -- add gabapentin Diabetes -- check A1C -- on meds -- check sugars -- avoid hypoglycemia DVT prophylaxis-- Lovenox sc
[2019-09-03] MEDS ORDERED: METHOCARBAMOL 500 MG TABLET PO PRN (13:50)
[2019-09-03] MEDS ORDERED: ACETAMINOPHEN 325 MG TABLET (FP) PO PRN (13:50)
[2019-09-03] MEDS ORDERED: morphine SULFATE 4 MG/ML VIAL ONE (13:56)
[2019-09-03 14:09] LABS: EOS % 1.1 % (0-4.5); HEMATOCRIT 39.3 % (32.4-45.2); HEMOGLOBIN 12.7 GM/dL (10.7-15.3); LYMPH % 19.2 % (8-40); MCH 26.8 pg (25.7-33.7); MCHC 32.2 g/dl (32.0-36.0); MEAN CELL VOLUME 83.2 fl (80-96); MEAN PLT VOLUME 7.8 fl (7.5-11.1); MONO % 4.9 % (3.8-10.2); NEUT % 73.8 % (42.8-82.8); PLATELET COUNT 401 K/MM3 (134-434); RBC 4.73 M/mm3 (3.60-5.2); RDW 17.3 % (11.6-15.6); WHITE BLOOD COUNT 13.7 K/mm3 (4.0-10.0)
[2019-09-03] MEDS ORDERED: oxyCODONE HCL 5 MG TABLET PO PRN (14:27)
--- NOTE | 2019-09-03 14:32 | PDOC ---
*Physical Exam - Vital Signs Last Vital Signs Temp Pulse Resp BP Pulse Ox 98 F 86 18 131/78 99 09/03/19 11:11 09/03/19 11:11 09/03/19 11:11 09/03/19 11:11 09/03/19 11:11 ED Treatment Course - LABORATORY CBC & Chemistry Diagram: 09/05/19 06:20 09/05/19 06:20 - ADDITIONAL ORDERS Additional order review: 09/03/19 13:44 RBC 4.73 MCV 83.2 MCHC 32.2 RDW 17.3 H MPV 7.8 Neutrophils % 73.8 Lymphocytes % 19.2 D Monocytes % 4.9 Eosinophils % 1.1 Basophils % 1.0 - Medications Given in the ED: ED Medications Discontinued Medications Generic Name Dose Route Start Last Admin Trade Name Alejo PRN Reason Stop Dose Admin Morphine Sulfate 4 mg 09/03/19 13:33 09/03/19 14:11 Morphine Injection - IVPUSH 09/03/19 13:34 4 mg ONCE ONE Administration Medical Decision Making - Medical Decision Making 09/03/19 14:31 Patient seen and evaluated with the nurse practitioner. I agree with the overall evaluation, assessment, and management with the following summary of visit: 44-year-old female presents for persistent lumbar radiculopathy pain, frequent visits in the past including recent MRI. Vitals as noted and afebrile Exam as noted Patient admitted for pain control, business operations specialist evaluation Discharge - Discharge Information Problems reviewed: Yes Clinical Impression/Diagnosis: Intractable back pain Back pain Qualifiers: Back pain location: low back pain Chronicity: unspecified Back pain laterality : unspecified Sciatica presence: unspecified whether sciatica present Qualified Code(s): M54.5 - Low back pain Condition: Stable Disposition: VNS/HOME HEALTH CARE - Follow up/Referral - Patient Discharge Instructions - Post Discharge Activity
[2019-09-03 14:46] LABS: ALBUMIN 3.8 g/dl (3.4-5.0); BILIRUBIN,TOTAL 0.4 mg/dL (0.2-1); CALCIUM 8.8 mg/dL (8.5-10.1); CREATININE 0.8 mg/dL (0.55-1.3); POTASSIUM 4.8 mmol/L (3.5-5.1); TOT PROT 6.8 g/dl (6.4-8.2)
[2019-09-03 15:59] VITALS: BMI 44.9
[2019-09-03] MEDS: metFORMIN HCL 500 MG TABLET (FP) PO SCH (17:18)
[2019-09-03] MEDS: INSULIN SLIDING SCALE (NOVOLOG) 1 VIAL SQ SCH (17:18)
[2019-09-03] MEDS: MORPHINE SULFATE 2 MG/ML VIAL IVPUSH PRN (19:34)
[2019-09-03] MEDS: GABAPENTIN 300 MG CAPSULE PO SCH ×2 (21:10)
[2019-09-03] MEDS: MONTELUKAST NA 10 MG TABLET PO SCH (21:10)
[2019-09-03] MEDS: ARIPiprazole 5 MG TABLET PO SCH (21:10)
[2019-09-03] MEDS: DOCUSATE SODIUM 100 MG CAPSULE (FP) PO SCH (21:10)
[2019-09-04] MEDS: MORPHINE SULFATE 2 MG/ML VIAL IVPUSH PRN ×3 (02:05→10:25)
[2019-09-04] MEDS: INSULIN SLIDING SCALE (NOVOLOG) 1 VIAL SQ SCH ×3 (06:28→16:42)
[2019-09-04] MEDS: glipiZIDE-XL 5 MG TAB.ER.24 PO SCH (06:29)
[2019-09-04] MEDS: GABAPENTIN 300 MG CAPSULE PO SCH ×3 (06:29→21:58)
[2019-09-04] MEDS: metFORMIN HCL 500 MG TABLET (FP) PO SCH ×2 (06:29→17:07)
[2019-09-04] MEDS: PANTOPRAZOLE 40 MG TABLET PO SCH (09:53)
[2019-09-04] MEDS ORDERED: PT OWN MED DRAWER 7, Y5N ONE ×2 (11:11→21:56)
--- NOTE | 2019-09-04 12:24 | PN ---
Progress Note (short form) - Note Progress Note: sleepy after receiving Morphine Had pain in AM unable to ambulate Vital Signs - 24 hr 09/03/19 09/03/19 09/03/19 14:45 15:54 19:35 Temperature 97.6 F 97.9 F Pulse Rate 76 79 Respiratory 20 Rate Blood Pressure 119/70 110/57 L O2 Sat by Pulse 97 Oximetry (%) 09/03/19 09/03/19 09/04/19 21:00 23:00 05:45 Temperature 98.2 F Pulse Rate 68 81 Respiratory 20 20 20 Rate Blood Pressure 128/62 109/67 O2 Sat by Pulse 97 Oximetry (%) 09/04/19 09/04/19 08:54 09:00 Temperature 98 F Pulse Rate 68 Respiratory 18 18 Rate Blood Pressure 114/55 L O2 Sat by Pulse 95 Oximetry (%) Current Medications Generic Name Dose Route Start Last Admin Trade Name Freq PRN Reason Stop Dose Admin Acetaminophen 650 mg 09/03/19 13:50 Tylenol - PO Q6H PRN PAIN LEVEL 1 - 3 Aripiprazole 15 mg 09/03/19 22:00 09/03/19 21:10 Abilify PO 15 mg HS LOWELL Administration Docusate Sodium 300 mg 09/03/19 22:00 09/03/19 21:10 Colace - PO 300 mg HS LOWELL Administration Fluphenazine HCl 5 mg 09/03/19 22:00 09/03/19 21:52 Prolixin - PO 5 mg HS LOWELL Administration Gabapentin 300 mg 09/03/19 14:30 09/04/19 06:29 Neurontin - PO 300 mg TID LOWELL Administration Glipizide 5 mg 09/04/19 07:00 09/04/19 06:29 Glucotrol Xl - PO 5 mg DAILY@0700 LOWELL Administration Insulin Aspart 1 vial 09/03/19 16:30 09/04/19 06:28 Novolog Vial Sliding Scale - SQ 4 units TIDAC LOWELL Administration Protocol Ketorolac Tromethamine 30 mg 09/04/19 12:45 Toradol Injection - IM 09/06/19 12:44 Q8H-IV LOWELL Metformin HCl 1,000 mg 09/03/19 16:30 09/04/19 06:29 Glucophage - PO 1,000 mg BIDI LOWELL Administration Methocarbamol 500 mg 09/03/19 13:50 Robaxin - PO BID PRN BACK PAIN Montelukast Sodium 10 mg 09/03/19 22:00 09/03/19 21:10 Singulair - PO 10 mg HS LOWELL Administration Oxycodone HCl 5 mg 09/03/19 14:27 Roxicodone - PO Q6H PRN PAIN LEVEL 6-10 Pantoprazole Sodium 40 mg 09/04/19 10:00 09/04/19 09:53 Protonix - PO 40 mg DAILY LOWELL Administration Polyethylene Glycol 17 gm 09/04/19 12:30 Miralax (For Daily Use) - PO DAILY LOWELL Sitagliptin Phosphate 100 mg 09/04/19 07:00 09/04/19 06:29 Januvia - PO 100 mg DAILY@0700 LOWELL Administration Laboratory Results - last 24 hr 09/03/19 09/03/19 09/03/19 13:44 13:44 16:45 WBC 13.7 H RBC 4.73 Hgb 12.7 Hct 39.3 MCV 83.2 MCH 26.8 MCHC 32.2 RDW 17.3 H Plt Count 401 MPV 7.8 Absolute Neuts (auto) 10.1 H Neutrophils % 73.8 Lymphocytes % 19.2 D Monocytes % 4.9 Eosinophils % 1.1 Basophils % 1.0 Nucleated RBC % 0 Sodium 134 L Potassium 4.8 Chloride 104 Carbon Dioxide 26 Anion Gap 5 L BUN 15.0 Creatinine 0.8 Est GFR (CKD-EPI)AfAm 103.92 Est GFR (CKD-EPI)NonAf 89.66 POC Glucometer 287 Random Glucose 288 H Calcium 8.8 Total Bilirubin 0.4 AST 22 ALT 23 Alkaline Phosphatase 117 Total Protein 6.8 Albumin 3.8 09/04/19 09/04/19 06:26 11:35 WBC RBC Hgb Hct MCV MCH MCHC RDW Plt Count MPV Absolute Neuts (auto) Neutrophils % Lymphocytes % Monocytes % Eosinophils % Basophils % Nucleated RBC % Sodium Potassium Chloride Carbon Dioxide Anion Gap BUN Creatinine Est GFR (CKD-EPI)AfAm Est GFR (CKD-EPI)NonAf POC Glucometer 243 178 Random Glucose Calcium Total Bilirubin AST ALT Alkaline Phosphatase Total Protein Albumin S1 S2 RRR Lungs clear Abd- soft, NT no edema pain on moving her legs A/P Intractable back pain -- start Toradol -- spoke with Neurosurgeon -- PT eval -- dc morphine -- pt wants to try Toradol first before receiving Epidural injection SCD for DVT prophylaxis Problem List - Problems (1) Diabetes Code(s): E11.9 - TYPE 2 DIABETES MELLITUS WITHOUT COMPLICATIONS
[2019-09-04] MEDS ORDERED: KETOROLAC TROMETHAMINE 30 MG/1 ML VIAL IM SCH (12:45)
[2019-09-04] MEDS: POLYETHYLENE GLYCOL 3350 119 GM BTL PO SCH (12:55)
--- NOTE | 2019-09-04 14:32 | CONSULT ---
Consult - text type - Consultation Consultation Note: NEUROSURGERY CONSULTATION Melisa Myrick is a 44 year old female who has a history of low back pain for several months. She reports exacerbation 2 weeks ago without any specific aggravating accident or injury. She has pain with waist flexion and any weight bearing and has to remain recumbent. She has been evaluated in the [facility] ER on several occasions. MRI demonstrates mild Cervical spondylosis which is currently asymptomatic and a L45 disc bulge which is likely the etiology of her current complaints. The patient had some improvement with IM Torodol injection and is interested in another attempt to manage her pain with another injection. I described the potential role of Epidural Steroid Injections if she does not achieve relief as well as the natural history which will hopefully allow her to recover over the next 6 weeks. I explained that if her symptoms do not respond, persist or progress, surgical intervention may be considered. All questions were answered.
[2019-09-04] MEDS: KETOROLAC TROMETHAMINE 30 MG/1 ML VIAL IVPB SCH (17:07)
[2019-09-04] MEDS: ARIPiprazole 5 MG TABLET PO SCH (21:57)
[2019-09-04] MEDS: MONTELUKAST NA 10 MG TABLET PO SCH (21:57)
[2019-09-04] MEDS: DOCUSATE SODIUM 100 MG CAPSULE (FP) PO SCH (21:57)
[2019-09-05] MEDS: KETOROLAC TROMETHAMINE 30 MG/1 ML VIAL IVPB SCH ×2 (01:03→09:05)
[2019-09-05] MEDS ORDERED: MAG HYDROX/AL HYDROX/SIMETH 30 ML UNIT-DOSE CUP PO ONE (03:08)
--- NOTE | 2019-09-05 06:29 | HOSP ---
Subjective - Review of Symptoms Events since last encounter: Hospitalist Encounter Notified by RN that the patient reports having chest pressure to her RCW. Was asked to assess Arrived to bedside, patient is awake, alert and oriented reports having CP, "feeling like her vein popped" patient denies SOB, diaphoresis and palpitations PE performed see EMR Patient reported to the RN that her LMP 08/17/2019, she has an IUD implanted Plan: EKG- stat Troponin I, CBC, BMP, INR- stat Chest Xray portable- stat Cardiovascular: Yes: Chest Pain Physical Examination Vital Signs: Vital Signs Temperature 98.5 F 09/05/19 05:54 Pulse Rate 79 09/05/19 05:54 Respiratory Rate 20 09/05/19 05:54 Blood Pressure 119/56 L 09/05/19 05:54 O2 Sat by Pulse Oximetry (%) 96 09/04/19 21:00 Constitutional: Yes: Well Nourished, No Distress, Calm, Obese Eyes: Yes: WNL, Conjunctiva Clear, EOM Intact HENT: Yes: WNL, Atraumatic, Normocephalic Neck: Yes: WNL, Supple, Trachea Midline Cardiovascular: Yes: WNL, Regular Rate and Rhythm, S1, S2, Other (CP-non- reproducible) Respiratory: Yes: WNL, Regular, CTA Bilaterally Gastrointestinal: Yes: WNL, Normal Bowel Sounds, Soft, Abdomen, Obese ...Rectal Exam: Yes: WNL Renal/: Yes: WNL Breast(s): Yes: WNL Musculoskeletal: Yes: Back Pain Extremities: Yes: WNL Edema: No Peripheral Pulses WNL: Yes Neurological: Yes: WNL, Alert, Oriented, Cran Nerves II-XII Intact ...Motor Strength: WNL Psychiatric: Yes: WNL, Alert, Oriented Labs: CBC, BMP 09/03/19 13:44 09/03/19 13:44 Laboratory Results - last 24 hr 09/04/19 09/04/19 09/04/19 11:35 16:40 21:18 POC Glucometer 178 178 184 09/05/19 05:49 POC Glucometer 119 Current Medications Generic Name Dose Route Start Last Admin Trade Name Freq PRN Reason Stop Dose Admin Acetaminophen 650 mg 09/03/19 13:50 09/04/19 22:36 Tylenol - PO 650 mg Q6H PRN Administration PAIN LEVEL 1 - 3 Aripiprazole 15 mg 09/03/19 22:00 09/04/19 21:57 Abilify PO 15 mg HS LOWELL Administration Docusate Sodium 300 mg 09/03/19 22:00 09/04/19 21:57 Colace - PO 300 mg HS LOWELL Administration Enoxaparin Sodium 40 mg 09/05/19 10:00 Lovenox - SQ DAILY LOWELL Fluphenazine HCl 5 mg 09/03/19 22:00 09/04/19 21:57 Prolixin - PO 5 mg HS LOWELL Administration Gabapentin 300 mg 09/03/19 14:30 09/05/19 06:30 Neurontin - PO 300 mg TID LOWELL Administration Glipizide 5 mg 09/04/19 07:00 09/05/19 06:30 Glucotrol Xl - PO 5 mg DAILY@0700 [facility] Administration Insulin Aspart 1 vial 09/03/19 16:30 09/05/19 06:31 Novolog Vial Sliding Scale - SQ Not Given TIDAC [facility] Protocol Ketorolac Tromethamine 30 mg 09/04/19 13:21 09/05/19 01:03 Toradol Injection - IVPB 09/06/19 12:44 30 mg Q8H-IV LOWELL Administration Metformin HCl 1,000 mg 09/03/19 16:30 09/05/19 06:31 Glucophage - PO 1,000 mg BIDI [facility] Administration Methocarbamol 500 mg 09/03/19 13:50 Robaxin - PO BID PRN BACK PAIN Montelukast Sodium 10 mg 09/03/19 22:00 09/04/19 21:57 Singulair - PO 10 mg HS LOWELL Administration Oxycodone HCl 5 mg 09/03/19 14:27 Roxicodone - PO Q6H PRN PAIN LEVEL 6-10 Pantoprazole Sodium 40 mg 09/04/19 10:00 09/04/19 09:53 Protonix - PO 40 mg DAILY LOWELL Administration Polyethylene Glycol 17 gm 09/04/19 12:30 09/04/19 12:55 Miralax (For Daily Use) - PO 17 gm DAILY LOWELL Administration Sitagliptin Phosphate 100 mg 09/04/19 07:00 09/05/19 06:30 Januvia - PO 100 mg DAILY@0700 [facility] Administration Hospitalist Encounter Outcome: EKG reviewed- NSR no ST or TWI Less Likely GA or NSTEMI, possibly muscular Trop, CBC, BMP, INR- pending Chest Xray portable- pending PMD team will f/u this am
[2019-09-05] MEDS: glipiZIDE-XL 5 MG TAB.ER.24 PO SCH (06:30)
[2019-09-05] MEDS: GABAPENTIN 300 MG CAPSULE PO SCH (06:30)
[2019-09-05] MEDS: metFORMIN HCL 500 MG TABLET (FP) PO SCH (06:31)
[2019-09-05] MEDS: INSULIN SLIDING SCALE (NOVOLOG) 1 VIAL SQ SCH (06:31)
[2019-09-05 07:00] LABS: BASO % 0.3 % (0-2.0); HEMATOCRIT 37.8 % (32.4-45.2); HEMOGLOBIN 12.3 GM/dL (10.7-15.3); LYMPH % 33.2 % (8-40); MCH 26.9 pg (25.7-33.7); MCHC 32.4 g/dl (32.0-36.0); MEAN CELL VOLUME 82.8 fl (80-96); MEAN PLT VOLUME 7.5 fl (7.5-11.1); MONO % 5.9 % (3.8-10.2); NEUT % 59.6 % (42.8-82.8); PLATELET COUNT 382 K/MM3 (134-434); RBC 4.57 M/mm3 (3.60-5.2); RDW 17.4 % (11.6-15.6); WHITE BLOOD COUNT 13.2 K/mm3 (4.0-10.0)
[2019-09-05 07:15] LABS: INR 1.25 (0.83-1.09); PROTHROMBIN TIME (PATIENT) 14.8 SEC (9.7-13.0)
[2019-09-05 07:56] LABS: ANION GAP 7 MMOL/L (8-16); BLOOD UREA NITROGEN 20.9 mg/dL (7-18); CHLORIDE 106 mmol/L (98-107); CO2 26 mmol/L (21-32); CREATININE 0.9 mg/dL (0.55-1.3); GLUCOSE,RANDOM 117 mg/dL (74-106); POTASSIUM 4.1 mmol/L (3.5-5.1); SODIUM 140 mmol/L (136-145)
[2019-09-05] MEDS ORDERED: ENOXAPARIN NA (PORCINE) 40 MG/0.4 ML DISP.SYRIN SQ SCH (10:00)
[2019-09-05] MEDS: POLYETHYLENE GLYCOL 3350 119 GM BTL PO SCH (11:01)
[2019-09-05] MEDS: PANTOPRAZOLE 40 MG TABLET PO SCH (11:02)
--- NOTE | 2019-09-05 11:26 | DS ---
Physical Examination Vital Signs: Vital Signs Temperature 98.5 F 09/05/19 05:54 Pulse Rate 82 09/05/19 06:00 Respiratory Rate 18 09/05/19 06:00 Blood Pressure 126/75 09/05/19 06:00 O2 Sat by Pulse Oximetry (%) 96 09/04/19 21:00 Constitutional: Yes: No Distress, Calm Cardiovascular: Yes: Regular Rate and Rhythm Respiratory: Yes: CTA Bilaterally Gastrointestinal: Yes: Normal Bowel Sounds, Soft, Abdomen, Obese. No: Tenderness Edema: No Labs: CBC, BMP 09/05/19 06:20 09/05/19 06:20 Discharge Summary Problems reviewed: Yes Reason For Visit: INTRACTABLE BACK PAIN Current Active Problems Back pain (Acute) Intractable back pain (Acute) Health Concerns: Admitting History and Physical - Primary Care Physician PCP: Christopher Rutherford - Admission Chief Complaint: back pain History of Present Illness: ER HISTORY 09/03/19 13:03 44-year-old female presented to ED with complaints of worsening low back pain for the past week. Patient states was seen here 3 times prior along with receiving MRI/CT with no significant findings. Patient denies saddle anesthesia , incontinence, skin discoloration or lower extremity edema. Patient states pain radiates down her left lower extremity worsened with standing. Patient states today was unable to stand up and had to crawl around her home despite taking Naprosyn and other medication for discomfort. Pt examined by me in the ER worsening back for 3 weeks-- she has been in ER frequently for back pain and had MRI done-- no significant findings per reports Denies any heavy lifting ,pulling or pushing States that when she tries to stand, she loses control of urine. Has radiation of pain to B/L hips ,across the abdomen, and to left lower extremity. Today she could not get OOB and was brought to ER She took Naproxen today without relief She called neurosurgeon for appointment and was told to go to the ER has tingling sensation to B/L thighs laterally MRI demonstrates mild Cervical spondylosis which is currently asymptomatic and a L45 disc bulge which is likely the etiology of her current complaints. Hospital course started on Gabapentin tid, seen by Neurosurgeon ---> recommended to start Toradol - physical therapy .If no improvement then Epidural injections advised Started on Toradol here-- she ambulated with PT using rolling walker-- pt advised to use walker . No bending . Able to get oob without difficulty stable for dc home on PO toradol and Gabapentin she vomited today in AM after receiving Oxycodone-- pt not able to tolerate it Advised to follow up with Neurosurgeon Condition: Stable - Instructions Diet, Activity, Other Instructions: Physical therapy for back pain ,lumbar radiculopathy Pt advised to not return to work for next 3 weeks-- she will need physical therapy, pain control and Neurosurgical evaluation May return on Sep 30 Referrals: Jimmy Faria MD, [facility] [Staff Physician] - - Home Medications Comprehensive Discharge Medication List: Ambulatory Orders Aripiprazole [Abilify -] 15 mg PO HS 02/01/13 Fluphenazine HCl [Prolixin -] 5 mg PO HS 07/28/15 Albuterol Sulfate Inhaler - [Ventolin HFA Inhaler -] 1 - 2 inh PO QID PRN Acetaminophen [Tylenol .Regular Strength -] 650 mg PO Q6H PRN tablet 04/06/19 Albuterol 2.5/Ipratropium 0.5 [Duoneb -] 1 amp NEB RQID amp 04/06/19 Glipizide [Glucotrol Xl] 5 mg PO DAILY 30 Days #30 tab.er.24 04/06/19 Montelukast Na [Singulair -] 10 mg PO HS #30 tablet 04/06/19 Nebulizer [Aeroeclipse II] 1 each MC PRN #1 each 04/06/19 Pantoprazole Sodium [Protonix -] 40 mg PO DAILY #30 tablet.ec 04/06/19 Sitagliptin Phosphate [Januvia -] 100 mg PO DAILY@0700 #30 ud 04/06/19 metFORMIN HCL [Glucophage -] 1,000 mg PO BIDI #60 tablet 04/06/19 Methocarbamol [Robaxin -] 500 mg PO BID PRN #14 tablet 08/27/19 Famotidine [Pepcid] 40 mg PO DAILY #30 tablet 09/05/19 Gabapentin [Neurontin -] 300 mg PO TID #90 capsule 09/05/19 Ketorolac Tromethamine [Toradol] 10 mg PO Q6H #28 tablet 09/05/19
[2019-09-05 13:55] VITALS: BP 128/73; PULSE 89; TEMP 97.4
[2019-09-05] MEDS ORDERED: KETOROLAC TROMETHAMINE 10 MG TABLET PO SCH (14:00)
--- NOTE | 2019-09-05 15:10 | EKG ---
Test Reason : Blood Pressure : / mmHG Vent. Rate : 076 BPM Atrial Rate : 076 BPM P-R Int : 174 ms QRS Dur : 090 ms QT Int : 380 ms P-R-T Axes : 059 055 057 degrees QTc Int : 427 ms NORMAL SINUS RHYTHM NORMAL ECG WHEN COMPARED WITH ECG OF 01-SEP-2019 16:38, NO SIGNIFICANT CHANGE WAS FOUND Confirmed by CELESTINA CONLEY MD ([id number]) on 09/05/2019 3:09:51 PM Referred By: CECILIO LEAVITT Confirmed By:CELESTINA CONLEY MD
== END 2019-09-05 14:35 | disposition home health service (06) ==
LOC: JER 11:00 → JERFT 11:00 → JERBED 14:02 → J6S 15:07
PROVIDERS: ADMIT Internal Medicine; ATTEND Internal Medicine
PROC: 3E0333Z Introduction of Anti-inflammatory into Peripheral Vein, Percutaneous Approach (ICD-10-PCS; principal; 2019-09-03)
PROC: 3E033NZ Introduction of Analgesics, Hypnotics, Sedatives into Peripheral Vein, Percutaneous Approach (ICD-10-PCS; 2019-09-03)
PROC: 3E0233Z Introduction of Anti-inflammatory into Muscle, Percutaneous Approach (ICD-10-PCS; 2019-09-03)
PROC: 3E013GC Introduction of Other Therapeutic Substance into Subcutaneous Tissue, Percutaneous Approach (ICD-10-PCS; 2019-09-03)
DX: M54.5 Low back pain (principal); E11.9 Type 2 diabetes mellitus without complications; F17.210 Nicotine dependence, cigarettes, uncomplicated; R07.89 Other chest pain
CPT/HCPCS: 36415; 71045-TC-FY; 80048; 80053; 82962; 84484; 85025; 85610; 93005; 93010; 96372; 96374; 96375; 96376; 97116-GP; 97161-GP; 99283-25; G0378

== ENCOUNTER 2019-09-27 08:36 | Day surgery (SDC) | payer OTHER ==
[2019-09-26 13:57] VITALS: BMI 43.6
[2019-09-27] MEDS ORDERED: MIDAZOLAM HCL 2 MG/2 ML SINGLE DOSE VIAL ONE (10:38)
[2019-09-27] MEDS ORDERED: PROPOFOL 20 ML ONE (10:38)
[2019-09-27] MEDS ORDERED: BETAMET ACET/BETAMET NA PH 30 MG/5 ML VIAL ONE (10:39)
[2019-09-27] MEDS ORDERED: LIDOCAINE HCL 1%, 10 MG/ML (20ML VIAL) ONE (10:39)
[2019-09-27] MEDS ORDERED: BUPIVACAINE HCL/PF 0.25% (2.5MG/ML) 10 ML VIAL ONE (10:39)
[2019-09-27] MEDS ORDERED: BUPIVACAINE HCL/PF 0.25% (2.5MG/ML) 10 ML VIAL IJ ONE (10:49)
[2019-09-27] MEDS ORDERED: LIDOCAINE HCL 1%, 10 MG/ML (50 mL VIAL) IJ ONE (10:49)
[2019-09-27] MEDS ORDERED: BETAMET ACET/BETAMET NA PH 30 MG/5 ML VIAL IJ ONE (10:49)
[2019-09-27] MEDS ORDERED: IOHEXOL 180 MG/1 ML ML IJ ONE (10:49)
[2019-09-27 12:01] VITALS: BP 116/67; PULSE 86; TEMP 97.6
--- NOTE | 2019-09-29 19:52 | PROC ---
Procedure Note Procedure: Date of service: 09/27/2019 Preoperative Diagnosis: Low back pain and lumbar radiculopathy on Left Postoperative Diagnosis: Same Procedure Performed: Lumbar Epidural Steroid Injection (LESI) on Left L4-5 with dye under Fluoroscopy Anesthesia: Local / MAC Anesthesiologist: Procedure: I discussed with the patient in detail about the risks, benefits, and alternatives to treatment not only limited to infection, headache, numbness , weakness, and injury to nerves, blood vessels and muscles. The patient understood, agreed and signed the written consent. The patient was placed in the prone position with the head, abdomen and legs supported with the pillows. The lumbosacral area was prepped and draped with Betadine times three in a sterile fashion. Lumbar vertebrae were identified under the C-arm. At L4-5 level on the Left side, 3 ml of 1 % Lidocaine was infiltrated into the skin and subcutaneous tissue. A 3 inch, #20 gauge Tuohy needle was advanced to the epidural space with loss of resistance technique under fluoroscopic guidance. Aspiration was negative for cerebrospinal fluid and blood. 2ml of Omnipaque ( radio-opaque dye) was injected to confirm the tip of the needle into epidural space and spread of dye. There was no CSF or vascular spread. The spread of dye was noted cranially and caudally on epidurogram. Aspiration was done again which was negative. A solution of 2.5 ml of Celestone, 2.5 ml of 0.25% Marcaine and a total of 5 ml was injected slowly. While Tuohy needle was withdrawn 2.0 ml of 1 % Lidocaine was infiltrated. Bleeding was checked. Betadine was wiped off. A sterile bandage was placed. The patient tolerated the procedure well. There were no immediate complications. The patient was transferred to the recovery room. The patient was observed for some time and discharged as per ASU criteria. The patient was told to apply ice at the injection site. Follow up appointment was given and also call my office at [phone]. If there is any problem, call my office or report to Emergency Room. Jovany Monroy M.D.
== END 2019-09-27 12:05 | disposition home or self-care (01) ==
LOC: JASU-SURG 08:36
PROVIDERS: ATTEND Physical Medicine & Rehabilitation
PROC: 3E0R33Z Introduction of Anti-inflammatory into Spinal Canal, Percutaneous Approach (ICD-10-PCS; 2019-09-27)
PROC: B01BYZZ Fluoroscopy of Spinal Cord using Other Contrast (ICD-10-PCS; 2019-09-27)
PROC: 3E0R3BZ Introduction of Anesthetic Agent into Spinal Canal, Percutaneous Approach (ICD-10-PCS; principal; 2019-09-27 10:00)
DX: M54.16 Radiculopathy, lumbar region (principal); M54.5 Low back pain; E11.9 Type 2 diabetes mellitus without complications; J45.909 Unspecified asthma, uncomplicated
CPT/HCPCS: 82962; 84703

== ENCOUNTER 2020-02-08 22:15 | Emergency (ER) | payer OTHER ==
[2020-02-08 22:23] VITALS: BP 122/83; PULSE 100; TEMP 98.5; BMI 40.1
--- NOTE | 2020-02-08 22:45 | PDOC ---
History of Present Illness - General Chief Complaint: Urinary Problem Stated Complaint: DIAREAH/ VOMITTING Time Seen by Provider: 02/08/20 22:34 Past History - Medical History Allergies/Adverse Reactions: Allergies Allergy/AdvReac Type Severity Reaction Status Date / Time No Known Allergies Allergy Verified 02/08/20 22:23 Home Medications: Ambulatory Orders Aripiprazole [Abilify -] 15 mg PO HS 02/01/13 Fluphenazine HCl [Prolixin -] 5 mg PO HS 07/28/15 Albuterol Sulfate Inhaler - [Ventolin HFA Inhaler -] 1 - 2 inh PO QID PRN 01/31/19 Acetaminophen [Tylenol .Regular Strength -] 650 mg PO Q6H PRN tablet 04/06/19 Albuterol 2.5/Ipratropium 0.5 [Duoneb -] 1 amp NEB RQID amp 04/06/19 Glipizide [Glucotrol Xl] 5 mg PO DAILY 30 Days #30 tab.er.24 04/06/19 Montelukast Na [Singulair -] 10 mg PO HS #30 tablet 04/06/19 Nebulizer [Aeroeclipse II] 1 each MC PRN #1 each 04/06/19 Pantoprazole Sodium [Protonix -] 40 mg PO DAILY #30 tablet.ec 04/06/19 Sitagliptin Phosphate [Januvia -] 100 mg PO DAILY@0700 #30 ud 04/06/19 metFORMIN HCL [Glucophage -] 1,000 mg PO BIDI #60 tablet 04/06/19 Methocarbamol [Robaxin -] 500 mg PO BID PRN #14 tablet 08/27/19 Famotidine [Pepcid] 40 mg PO DAILY #30 tablet 09/05/19 Gabapentin [Neurontin -] 300 mg PO TID #90 capsule 09/05/19 Ketorolac Tromethamine [Toradol] 10 mg PO Q6H #28 tablet 09/05/19 Anemia: No Asthma: Yes Cancer: No Cardiac Disorders: No CVA: No COPD: No CHF: No Dementia: No Diabetes: Yes GI Disorders: No Disorders: No HTN: No Hypercholesterolemia: Yes Liver Disease: No Psychiatric Problems: Yes (depression/anxiety schioeffective disorder) Seizures: No Thyroid Disease: No - Surgical History Abdominal Surgery: No Appendectomy: No Cardiac Surgery: No Cholecystectomy: No Lung Surgery: No Neurologic Surgery: No Orthopedic Surgery: No - Reproductive History Is Patient Now?: No (#): 8 Para: 2 Cervical CA: No Dysfunctional Uterine Bleeding: No Ectopic : No Endometrial CA: No Polycystic Ovaries: No Therapeutic (s) & number: No Tubal Ligation: No Spontaneous : 2 - Immunization History Immunization Up to Date: No - Psycho-Social/Smoking History Smoking Status: Yes Smoking History: Never smoked Have you smoked in the past 12 months: No Number of Cigarettes Smoked Daily: 10 'Breaking Loose' booklet given: 09/27/19 - Substance Abuse Hx (Audit-C & DAST Scrn) How often the patient has a drink containing alcohol: Never Score: In Men: 4 or > Positive; In Women: 3 or > Positive: 0 Screen Result (Pos requires Nsg. Audit-10AR): Negative *Physical Exam - Vital Signs Last Vital Signs Temp Pulse Resp BP Pulse Ox 98.5 F 100 H 18 122/83 97 02/08/20 22:20 02/08/20 22:20 02/08/20 22:20 02/08/20 22:20 02/08/20 22:20 ED Treatment Course - LABORATORY CBC & Chemistry Diagram: 02/08/20 23:30 02/09/20 00:55 Medical Decision Making - Medical Decision Making 02/08/20 22:44 HPI: 44yo F hx morbid obesity DM, COPD, miscarriage s/p oophorectomy, chronic back pain, schizoaffective disorder, depression, and recurrent UTIs (never diagnoses, self-diagnosed, never taken abx for UTI) presents from home c/o 1mo dysuria and increased urinary urgency/frequency c/w prior UTIs. States dysuria feels like knives cutting vagina when urinates, denies lacerations or trauma or rashes or lesions. Also c/o 1 day intermittent sharp pinpoint nonradiating RUQ/R rib pain nonreproducible no change with food or movement, atraumatic, no hx similar sx. Endorses 2 episodes of NBNB emesis 2 days ago due to drinking juice and her sugar going high, but no N/V since. Denies F/C, D/C, blood in stool, vaginal discharge or rash, flank pain, CP, SOB, cough. Endorses 1 day vaginal spotting yesterday, LMP mid-December, usually regular so late now, got copper IUD replaced in November or December this year. Denies other abdominal surgeries or hx gallstones. States saw monorail helper less than a month ago and had exam and labs and urine done but doesn't know results. States self-diagnosed with yeast infection due to itchiness and thick white discharge 3 days ago and took medication with resolution; states has done this multiple times in the past but no one has ever diagnosed her with a yeast infection. Denies hx STIs or chance of STIs, sexually active only with . No pain meds tried. ROS: Constitutional: Negative for chills, fever, fatigue, diaphoresis. HENT: Negative for sore throat, rhinorrhea, congestion. Eyes: Negative for visual disturbance. Respiratory: Negative for shortness of breath, cough, and wheezing. Cardiovascular: Negative for chest pain, palpitations, and leg swelling. Gastrointestinal: Positive for RUQ pain, vomiting. Negative for blood in stool, constipation, diarrhea, nausea. Genitourinary: Positive for dysuria. Negative for flank pain, and hematuria. Musculoskeletal: Positive for R rib pain. Negative for myalgias, back pain, and neck pain. Skin: Negative for rash. Neurological: Negative for light-headedness, dizziness, vertigo, syncope, weakness, numbness and headaches. Psychiatric/Behavioral: Positive for schizoaffective disorder. PE: Gen: Alert, NAD, comfortable-appearing, obese HEENT: PERRL, EOMI, dry MM, NCAT. No conjunctival pallor. Sclera are non- icteric.. CV: Regular rate and rhythm. No murmurs, rubs, or gallops. PULM: No resp distress. CTAB, no wheezes, rales, or rhonchi. ABD: soft, RUQ tenderness to deep palpation, protuberant, ND, no rebound tenderness or guarding, no CVA tenderness. PELVIC: External genitalia unremarkable. Scant white physiologic-appearing discharge seen with speculum exam. No blood. Cervix visualized and is unremarkable (closed in appearance without any protruding material). Bimanual exam without cervical motion tenderness, adnexal tenderness, or any masses appreciated. Urine for testing for gonorrhea, chlamydia and trichomonas was obtained. BACK: No TTP of c/t/l-spine. No step-offs or deformities. MSK: No bony deformities. 2+ pulses in all extremities. NEURO: AAOx3. PERRL. No gross CN deficits. Strength and sensation grossly intact throughout. Normal gait. EXTREMITIES: No cyanosis. No clubbing. No edema. No calf tenderness. PSYCH: Normal mood and thought pattern. Odd affect. SKIN: Warm and dry. Normal capillary refill. No rashes. No jaundice. MDM: 44yo F hx morbid obesity DM, COPD, miscarriage s/p oophorectomy, chronic back pain, schizoaffective disorder, depression, and recurrent UTIs (never diagnoses, self-diagnosed, never taken abx for UTI) presents from home with 1mo dysuria and increased urinary urgency/frequency, in addition to 1 day of intermittent RUQ/R rib pain. Slightly tachycardic, otherwise hemodynamically stable, afebrile. Ddx: uncontrolled DM, UTI/pyelo, yeast infection, BV, STI, PID, cho lelithiasis/cystitis, cholangitis, pancreatitis, PNA, ACS/WA, arrhythmia, , infection, metabolic derangement, anemia -EKG -CXR -RUQ US -CBC,CMP,Cardiac profile,Lipase,UA/UC,Preg,G/C/trich -IVF/oral hydration -Pepcid, maalox, tylenol -Dispo: pending workup and reassessment, likely d/c home 02/09/20 00:21 Labs reviewed. Hyperglycemic. WBC elevated c/w prior labs. UA negative for UTI. EKG reviewed: sinus tachycardia, 105bpm, normal axis, normal intervals, no TWIs, no ST elevations or depressions CXR reviewed: No acute pathology RUQ US reviewed: No acute pathology 02/09/20 00:49 Chem hemolyzed -CMP -PO hydration Hyperglycemia, pt states she did not take any of her DM meds today including her metformin 1000mg -Metformin 1000 HCL 02/09/20 01:40 Repeat chemistry reviewed - notable for hyperglycemia without DKA. Pt has not taken meds yet and wants to take them when gets home. Pt safe for d/c. Will discharge home with razor sharpener f/u. Return precautions given. Pt understands all discharge instructions and all questions were answered. Discharge - Discharge Information Problems reviewed: Yes Clinical Impression/Diagnosis: Dysuria, Abdominal pain, Rib pain on right side, Hyperglycemia - Admission No - Follow up/Referral - Patient Discharge Instructions Patient Printed Discharge Instructions: DI for Dysuria -- Adult Additional Instructions: You have been seen in the Emergency Department for your pain with urination and right rib/abdomen pain. Your exam, ultrasound, chest X-ray, EKG, urine, and labs show no signs of a UTI or emergent condition. You will need further evaluation by your Industrial Waste Treatment Technician. Give them a call in the morning to make an appointment for within 1 week. If you experience pain, you can take Tylenol or Ibuprofen as directed on the medication bottle, but do not exceed 3g of Ibuprofen or 4g of Tylenol a day. You will receive a call in 2-3 days with results of your urine culture, gonorrhea, chlamydia, and trichomonas tests. Return to the Emergency Department immediately if you experience fever, vomiting, passing out, inability to urinate, or any other new or worsening symptom. - Post Discharge Activity
[2020-02-08] MEDS ORDERED: ACETAMINOPHEN 1000 MG/100 ML VIAL (NON FORMULARY) IVPB ONE (23:12)
[2020-02-08] MEDS ORDERED: SODIUM CHLORIDE 0.9% 500 ML INFUS.BAG IV ONE (23:12)
--- NOTE | 2020-02-08 23:24 | PDOC ---
Documentation entered by Carlo Costa SCRIBE, acting as scribe for Fausto Trujillo MD. Fausto Trujillo MD: This documentation has been prepared by the Julissa figueredo Nirvannie, SCRIBE, under my direction and personally reviewed by me in its entirety. I confirm that the documentation accurately reflects all work, treatment, procedures, and medical decision making performed by me. Attending Attestation - Resident Resident Name: TootieWinsome - ED Attending Attestation I have performed the following: I have examined & evaluated the patient, The case was reviewed & discussed with the resident, I agree w/resident's findings & plan, Exceptions are as noted - HPI HPI: 02/08/20 23:20 The patient is a 44 year old female with a significant past medical history of DM, COPD, s/p oophorectomy after miscarriage, chronic back pain, schizoaffective disorder, depression, and recurrent UTIs who presents to the ED with 1 month of dysuria similar to previous UTIs. Denies F/C. Denies flank pain. Pt also notes right lower rib pain x1 day. She denies any recent trauma to the ribs. Denies SOB. Denies F/C. Denies cough. Denies N/V/D. Allergies: NKDA - Physicial Exam PE: 02/08/20 23:27 See resident exam - Medical Decision Making 02/08/20 23:27 44 F with dysuria x 1 month. Likely UTI. Also complaining of R lower rib pain. Will evaluate for janelle. - Labs - CXR - RUQ sono 02/09/20 00:08 UA unremarkable RUQ sono unremarkable Pt signed out to Dr. Vigil at 12am, pending labs and re-evaluation Discharge - Discharge Information Problems reviewed: Yes Clinical Impression/Diagnosis: Dysuria, Abdominal pain, Rib pain on right side, Hyperglycemia Disposition: HOME - Follow up/Referral - Patient Discharge Instructions Patient Printed Discharge Instructions: DI for Dysuria -- Adult Additional Instructions: You have been seen in the Emergency Department for your pain with urination and right rib/abdomen pain. Your exam, ultrasound, chest X-ray, EKG, urine, and labs show no signs of a UTI or emergent condition. You will need further evaluation by your Automatic Equipment Technician. Give them a call in the morning to make an appointment for within 1 week. If you experience pain, you can take Tylenol or Ibuprofen as directed on the medication bottle, but do not exceed 3g of Ibuprofen or 4g of Tylenol a day. You will receive a call in 2-3 days with results of your urine culture, gonorrhea, chlamydia, and trichomonas tests. Return to the Emergency Department immediately if you experience fever, vomiting, passing out, inability to urinate, or any other new or worsening symptom. - Post Discharge Activity
[2020-02-08] MEDS ORDERED: MAG HYDROX/AL HYDROX/SIMETH 30 ML UNIT-DOSE CUP PO ONE (23:30)
[2020-02-08] MEDS ORDERED: FAMOTIDINE 20 MG/50 ML IVPB 20 MG/50 ML MG IVPB ONE (23:30)
[2020-02-08 23:42] LABS: BASO % 1.2 % (0-2.0); EOS % 1.1 % (0-4.5); HEMATOCRIT 38.2 % (32.4-45.2); HEMOGLOBIN 12.2 GM/dL (10.7-15.3); LYMPH % 23.3 % (8-40); MCH 27.2 pg (25.7-33.7); MEAN CELL VOLUME 84.9 fl (80-96); MEAN PLT VOLUME 7.9 fl (7.5-11.1); MONO % 5.8 % (3.8-10.2); NEUT % 68.6 % (42.8-82.8); PLATELET COUNT 374 K/MM3 (134-434); RDW 17.7 % (11.6-15.6); WHITE BLOOD COUNT 14.9 K/mm3 (4.0-10.0)
[2020-02-08 23:50] LABS: URINE APPEARANCE Clear; URINE BILIRUBIN Negative (NEGATIVE); URINE COLOR Yellow; URINE GLUCOSE (UA) 2+ (NEGATIVE); URINE KETONE Trace (NEGATIVE); URINE LEUK ESTERASE Negative (NEGATIVE); URINE NITRITE Negative (NEGATIVE); URINE PROTEIN Negative (NEGATIVE); URINE UROBILINOGEN 0.2 mg/dL (0.2-1.0)
[2020-02-09] MEDS ORDERED: ACETAMINOPHEN 500 MG TABLET (FP) PO ONE (00:03)
[2020-02-09] MEDS ORDERED: FAMOTIDINE 20 MG TABLET PO ONE (00:04)
[2020-02-09 00:26] LABS: ALBUMIN 3.2 g/dl (3.4-5.0); ALK PHOS 106 U/L (45-117); ANION GAP 9 MMOL/L (8-16); BILIRUBIN,TOTAL 0.4 mg/dL (0.2-1); BLOOD UREA NITROGEN 11.9 mg/dL (7-18); CALCIUM 8.7 mg/dL (8.5-10.1); CHLORIDE 101 mmol/L (98-107); CO2 20 mmol/L (21-32); CREATININE 1.1 mg/dL (0.55-1.3); GLUCOSE,RANDOM 376 mg/dL (74-106); LIPASE 66 U/L (73-393); SGOT/AST 72 U/L (15-37); SGPT/ALT 28 U/L (13-61); SODIUM 130 mmol/L (136-145); TOT PROT 7.3 g/dl (6.4-8.2)
[2020-02-09] MEDS ORDERED: metFORMIN HCL 500 MG TABLET (FP) PO ONE (00:49)
[2020-02-09] MEDS ORDERED: ACETAMINOPHEN 325 MG TABLET (FP) ONE (01:15)
[2020-02-09] MEDS ORDERED: metFORMIN HCL 500 MG TABLET (FP) ONE (01:15)
[2020-02-09 01:29] LABS: ALBUMIN 3.6 g/dl (3.4-5.0); BILIRUBIN,TOTAL 0.2 mg/dL (0.2-1); BLOOD UREA NITROGEN 11.8 mg/dL (7-18); CALCIUM 9.1 mg/dL (8.5-10.1); POTASSIUM 4.5 mmol/L (3.5-5.1); TOT PROT 7.2 g/dl (6.4-8.2)
--- NOTE | 2020-02-09 14:35 | EKG ---
Test Reason : Blood Pressure : / mmHG Vent. Rate : 105 BPM Atrial Rate : 105 BPM P-R Int : 146 ms QRS Dur : 076 ms QT Int : 344 ms P-R-T Axes : 074 079 070 degrees QTc Int : 454 ms SINUS TACHYCARDIA PROLONGED QT NONSPECIFIC ST ABNORMALITY ABNORMAL ECG Confirmed by MD GINGER, IKER ([id number]) on 02/09/2020 2:34:35 PM Referred By: Confirmed By:IKER MILES MD
== END 2020-02-09 02:00 | disposition home or self-care (01) ==
LOC: JER 22:15
PROC: 3E033GC Introduction of Other Therapeutic Substance into Peripheral Vein, Percutaneous Approach (ICD-10-PCS; principal; 2020-02-08)
DX: E11.65 Type 2 diabetes mellitus with hyperglycemia (principal); R07.81 Pleurodynia; R30.0 Dysuria; R10.9 Unspecified abdominal pain
CPT/HCPCS: 36415; 71046-TC-FY; 76705-TC; 80053; 81003; 82550; 82553; 82962; 83690; 84484; 84703; 85025; 87086; 87186; 87491; 87591; 87661; 93005; 93010; 99285-25

== ENCOUNTER 2021-02-17 01:02 | Emergency (ER) | payer OTHER ==
[2021-02-17 01:41] VITALS: BP 129/80; PULSE 97; TEMP 98.5; BMI 42.3
[2021-02-17 03:19] LABS: URINE APPEARANCE CLEAR; URINE BILIRUBIN NEGATIVE (NEGATIVE); URINE COLOR YELLOW; URINE GLUCOSE (UA) 3+ (NEGATIVE); URINE KETONE NEGATIVE (NEGATIVE); URINE LEUK ESTERASE NEGATIVE (NEGATIVE); URINE NITRITE NEGATIVE (NEGATIVE); URINE PROTEIN NEGATIVE (NEGATIVE); URINE UROBILINOGEN 0.2 mg/dL (0.2-1.0)
== END 2021-02-17 04:51 | disposition home or self-care (01) ==
LOC: JER 01:02
DX: R30.0 Dysuria (principal)
CPT/HCPCS: 36415; 81003; 84703; 87086; 87491; 87591; 87661; 99283-25

== ENCOUNTER 2021-05-05 20:20 | Emergency (ER) | payer OTHER ==
[2021-05-05 20:50] VITALS: BP 135/74; PULSE 86; TEMP 98.5; BMI 40.7
[2021-05-05] MEDS ORDERED: IBUPROFEN 600 MG TABLET (FP) PO ONE ×2 (21:32→21:35)
== END 2021-05-05 21:42 | disposition home or self-care (01) ==
LOC: JER 20:20 → JERFT 20:20
DX: R05 Cough (principal); R51.9 Headache, unspecified; R50.9 Fever, unspecified
CPT/HCPCS: 99283-25

== ENCOUNTER 2021-07-29 16:48 | Emergency (ER) | payer OTHER ==
[2021-07-29 17:07] VITALS: TEMP 98.7; BMI 40.7
[2021-07-29] MEDS ORDERED: SODIUM CHLORIDE 0.9% 500 ML INFUS.BAG IV ONE (17:47)
[2021-07-29] MEDS ORDERED: LACTATED RINGERS SOLUTION 1000 ML INFUS.BAG IV ONE ×2 (18:36)
[2021-07-29 18:49] LABS: EPI CELLS 25 /uL (0-25.1); HYALINE CASTS 20 /uL (0-3.1); URINE APPEARANCE CLOUDY; URINE BACTERIA >9,000 /uL (0-1359); URINE BILIRUBIN NEGATIVE (NEGATIVE); URINE COLOR YELLOW; URINE GLUCOSE (UA) 2+ (NEGATIVE); URINE KETONE TRACE (NEGATIVE); URINE LEUK ESTERASE 1+ (NEGATIVE); URINE NITRITE POSITIVE (NEGATIVE); URINE PROTEIN 1+ (NEGATIVE); URINE RBC 18 /uL (0-23.9); URINE UROBILINOGEN 0.2 mg/dL (0.2-1.0); URINE WBC 520 /uL (0-25.8)
[2021-07-29] MEDS ORDERED: CEFTRIAXONE 1,000 MG in DEXTROSE 5%-WATER - 50 ML IVPB ONE (18:54)
[2021-07-29 19:04] LABS: VENOUS BASE EXCESS 0.3 mmol/L (-2-2); VENOUS O2 SATURATION 42.1 % (70-80); VENOUS PCO2 47.5 mmHg (38-52); VENOUS PH 7.362 (7.310-7.410)
[2021-07-29 19:16] LABS: BASO % 0.4 % (0-2.0); EOS % 0.9 % (0-4.5); HEMATOCRIT 41.3 % (32.4-45.2); HEMOGLOBIN 13.7 GM/dL (10.7-15.3); LYMPH % 36.6 % (8-40); MCH 27.6 pg (25.7-33.7); MCHC 33.1 g/dl (32.0-36.0); MEAN CELL VOLUME 83.6 fl (80-96); MEAN PLT VOLUME 7.6 fl (7.5-11.1); MONO % 8.9 % (3.8-10.2); NEUT % 53.2 % (42.8-82.8); PLATELET COUNT 352 10^3/uL (134-434); RBC 4.94 M/mm3 (3.60-5.2); RDW 17.2 % (11.6-15.6); WHITE BLOOD COUNT 5.8 K/mm3 (4.0-10.0)
[2021-07-29 19:25] LABS: CHLORIDE 102 mmol/L (98-107); SODIUM 137 mmol/L (136-145)
[2021-07-29 19:29] LABS: CALCIUM 9.6 mg/dL (8.5-10.1)
[2021-07-29 19:30] LABS: ALBUMIN 3.7 g/dl (3.4-5.0); ANION GAP 7 MMOL/L (8-16); BLOOD UREA NITROGEN 12.7 mg/dL (7-18); CO2 28 mmol/L (21-32); GLUCOSE,RANDOM 253 mg/dL (74-106); MAGNESIUM 2.1 mg/dL (1.8-2.4)
[2021-07-29 19:32] LABS: CREATININE 1.1 mg/dL (0.55-1.3)
[2021-07-29] MEDS ORDERED: ALBUTEROL SO4 2.5/IPRATROPIUM 0.5 INH SOL 3 ML VIAL.NEB. NEB ONE (19:32)
[2021-07-29] MEDS ORDERED: CEFTRIAXONE 1 GM/50 ML BAG ONE (19:32)
[2021-07-29 19:33] LABS: SGOT/AST 18 U/L (15-37); SGPT/ALT 19 U/L (13-61)
[2021-07-29 19:34] LABS: BILIRUBIN,TOTAL 0.2 mg/dL (0.2-1); TOT PROT 7.9 g/dl (6.4-8.2)
[2021-07-29 19:35] LABS: ALK PHOS 113 U/L (45-117)
[2021-07-29] MEDS: ALBUTEROL SO4 2.5/IPRATROPIUM 0.5 INH SOL 3 ML VIAL.NEB. NEB SCH ×2 (19:45→19:46)
[2021-07-29 22:04] VITALS: BP 97/65; PULSE 91
== END 2021-07-29 22:35 | disposition home or self-care (01) ==
LOC: JER 16:48
PROC: 3E033GC Introduction of Other Therapeutic Substance into Peripheral Vein, Percutaneous Approach (ICD-10-PCS; principal; 2021-07-29)
PROC: 3E0F7GC Introduction of Other Therapeutic Substance into Respiratory Tract, Via Natural or Artificial Opening (ICD-10-PCS; 2021-07-29)
DX: U07.1 COVID-19 (principal); N39.0 Urinary tract infection, site not specified; R06.02 Shortness of breath
CPT/HCPCS: 36415; 71045-TC-FY; 80053; 81003; 82010; 82550; 82803; 82962; 83735; 84484; 84703; 85025; 87086; 87186; 87804; 87807; 93005; 93010; 99285-25; C9803; U0003; U0005

== ENCOUNTER 2021-10-07 00:50 | Emergency (ER) | payer OTHER ==
[2021-10-07 01:08] VITALS: BP 106/71; PULSE 95; TEMP 98.9; BMI 39.8
[2021-10-07] MEDS ORDERED: FAMOTIDINE 10 MG TABLET PO ONE (01:13)
[2021-10-07] MEDS ORDERED: ONDANSETRON 4 MG TABLET PO ONE (01:13)
[2021-10-07] MEDS ORDERED: MAG HYDROX/AL HYDROX/SIMETH -MYLANTA- ORAL SUSPENSION PO ONE (01:13)
[2021-10-07] MEDS ORDERED: FAMOTIDINE 10 MG TABLET ONE (01:24)
[2021-10-07] MEDS ORDERED: MAG HYDROX/AL HYDROX/SIMETH 30 ML UNIT-DOSE CUP ONE (01:25)
[2021-10-07] MEDS ORDERED: ONDANSETRON *ODT* 4 MG TABLET ONE (01:25)
[2021-10-07] MEDS ORDERED: SODIUM CHLORIDE 0.9% 500 ML INFUS.BAG IV ONE (01:54)
[2021-10-07 02:38] LABS: EPI CELLS >36 /uL (0-25.1); HYALINE CASTS 3 /uL (0-3.1); PH,URINE 5.5 (5.0-8.0); URINE APPEARANCE CLOUDY; URINE BACTERIA 535 /uL (0-1359); URINE BILIRUBIN NEGATIVE (NEGATIVE); URINE COLOR YELLOW; URINE GLUCOSE (UA) NEGATIVE (NEGATIVE); URINE KETONE TRACE (NEGATIVE); URINE LEUK ESTERASE 1+ (NEGATIVE); URINE NITRITE NEGATIVE (NEGATIVE); URINE PROTEIN NEGATIVE (NEGATIVE); URINE RBC 29 /uL (0-23.9); URINE WBC 47 /uL (0-25.8)
[2021-10-07 03:06] LABS: BASO % 0.6 % (0-2.0); EOS % 1.2 % (0-4.5); HEMATOCRIT 36.2 % (32.4-45.2); LYMPH % 29.3 % (8-40); MCH 28.2 pg (25.7-33.7); MCHC 33.1 g/dl (32.0-36.0); MEAN CELL VOLUME 85.4 fl (80-96); MEAN PLT VOLUME 6.9 fl (7.5-11.1); MONO % 4.8 % (3.8-10.2); NEUT % 64.1 % (42.8-82.8); PLATELET COUNT 397 10^3/uL (134-434); RBC 4.24 M/mm3 (3.60-5.2); RDW 16.9 % (11.6-15.6); WHITE BLOOD COUNT 14.2 K/mm3 (4.0-10.0)
[2021-10-07 03:17] LABS: ALBUMIN 3.5 g/dl (3.4-5.0); BLOOD UREA NITROGEN 9.7 mg/dL (7-18); CALCIUM 8.6 mg/dL (8.5-10.1)
[2021-10-07 03:22] LABS: BILIRUBIN,TOTAL 0.3 mg/dL (0.2-1); TOT PROT 7.2 g/dl (6.4-8.2)
[2021-10-07 11:47] LABS: URINE CRYSTALS MANY /hpf
== END 2021-10-07 04:25 | disposition home or self-care (01) ==
LOC: JER 00:50
DX: R11.2 Nausea with vomiting, unspecified (principal)
CPT/HCPCS: 36415; 80053; 81003; 82962; 83735; 84703; 85025; 87086; 93005; 93010; 99285-25

== ENCOUNTER 2022-02-07 10:28 | Emergency (ER) | payer OTHER ==
[2022-02-07 10:54] VITALS: TEMP 98.3
[2022-02-07] MEDS ORDERED: ASPIRIN 325 MG TABLET PO ONE (11:38)
[2022-02-07] MEDS ORDERED: SODIUM CHLORIDE 1,000 ML IV STA (11:38)
[2022-02-07] MEDS ORDERED: ASPIRIN 325 MG TABLET ONE (11:55)
[2022-02-07 12:46] LABS: BASO % 0.9 % (0-2.0); EOS % 2.6 % (0-4.5); HEMATOCRIT 36.2 % (32.4-45.2); HEMOGLOBIN 11.6 GM/dL (10.7-15.3); LYMPH % 31.6 % (8-40); MCH 26.6 pg (25.7-33.7); MEAN CELL VOLUME 83.1 fl (80-96); MEAN PLT VOLUME 7.5 fl (7.5-11.1); MONO % 5.9 % (3.8-10.2); PLATELET COUNT 384 10^3/uL (134-434); RBC 4.36 M/mm3 (3.60-5.2); RDW 17.5 % (11.6-15.6); WHITE BLOOD COUNT 13.8 K/mm3 (4.0-10.0)
[2022-02-07 13:09] LABS: ALBUMIN 3.6 g/dl (3.4-5.0); BLOOD UREA NITROGEN 8.2 mg/dL (7-18); CALCIUM 9.1 mg/dL (8.5-10.1)
[2022-02-07 13:12] LABS: CREATININE 0.8 mg/dL (0.55-1.3)
[2022-02-07 13:14] LABS: BILIRUBIN,TOTAL 0.2 mg/dL (0.2-1); TOT PROT 7.3 g/dl (6.4-8.2)
[2022-02-07] MEDS ORDERED: MAG HYDROX/AL HYDROX/SIMETH 30 ML UNIT-DOSE CUP ONE (14:03)
[2022-02-07] MEDS ORDERED: MAG HYDROX/AL HYDROX/SIMETH 30 ML UNIT-DOSE CUP PO ONE (14:04)
[2022-02-07 15:14] VITALS: BP 128/70; PULSE 89
== END 2022-02-07 15:16 | disposition home or self-care (01) ==
LOC: JER 10:28
DX: R14.1 Gas pain (principal); R07.89 Other chest pain
CPT/HCPCS: 36415; 71046-TC-FY; 80053; 83735; 84484; 85025; 93005; 93010; 99285-25

== ENCOUNTER 2022-02-14 02:28 | Inpatient (IN) | payer OTHER ==
[2022-02-14] MEDS ORDERED: ALBUTEROL SO4 2.5/IPRATROPIUM 0.5 INH SOL 3 ML VIAL.NEB. NEB ONE ×2 (02:51→02:55)
[2022-02-14] MEDS ORDERED: methylPREDNISolone NA SUCC 125 MG/2 ML VIAL IVPUSH ONE (02:51)
[2022-02-14] MEDS ORDERED: methylPREDNISolone NA SUCC 125 MG/2 ML VIAL ONE ×2 (02:56→14:57)
[2022-02-14 03:31] LABS: BASO % 0.6 % (0-2.0); EOS % 2.6 % (0-4.5); HEMATOCRIT 34.4 % (32.4-45.2); HEMOGLOBIN 11.4 GM/dL (10.7-15.3); LYMPH % 16.6 % (8-40); MCH 27.4 pg (25.7-33.7); MCHC 33.3 g/dl (32.0-36.0); MEAN CELL VOLUME 82.4 fl (80-96); MEAN PLT VOLUME 7.5 fl (7.5-11.1); MONO % 5.9 % (3.8-10.2); NEUT % 74.3 % (42.8-82.8); PLATELET COUNT 405 10^3/uL (134-434); RBC 4.17 M/mm3 (3.60-5.2); RDW 17.4 % (11.6-15.6); WHITE BLOOD COUNT 9.8 K/mm3 (4.0-10.0)
[2022-02-14 03:52] LABS: ALBUMIN 3.4 g/dl (3.4-5.0); BLOOD UREA NITROGEN 7.1 mg/dL (7-18); CALCIUM 8.6 mg/dL (8.5-10.1)
[2022-02-14 03:55] LABS: CREATININE 0.9 mg/dL (0.55-1.3)
[2022-02-14 03:57] LABS: BILIRUBIN,TOTAL 0.1 mg/dL (0.2-1)
[2022-02-14 04:00] LABS: N-TERMINAL BNP 22.3 pg/ml (5-125)
[2022-02-14] MEDS ORDERED: SODIUM CHLORIDE 0.9% 500 ML INFUS.BAG IV ONE (04:42)
[2022-02-14] MEDS ORDERED: AZITHROMYCIN IVPB 500 MG in DEXTROSE 5%-WATER - 250 ML IVPB ONE (05:35)
[2022-02-14] MEDS ORDERED: metFORMIN HCL 500 MG TABLET (FP) PO ONE (05:38)
[2022-02-14] MEDS ORDERED: metFORMIN HCL 500 MG TABLET (FP) ONE (05:40)
[2022-02-14] MEDS ORDERED: AZITHROMYCIN IVPB 500 MG/250 ML BAG IVPB ONE (05:40)
[2022-02-14] MEDS ORDERED: Insulin (LOG) Aspart 100 UNITS/ML VIAL SQ ONE (06:02)
[2022-02-14] MEDS ORDERED: IBUPROFEN 400 MG TABLET (FP) PO ONE ×2 (07:42→07:45)
[2022-02-14] MEDS ORDERED: ALBUTEROL SO4 2.5/IPRATROPIUM 0.5 INH SOL 3 ML VIAL.NEB. NEB PRN (11:18)
[2022-02-14] MEDS ORDERED: METHOCARBAMOL 500 MG TABLET PO PRN (11:19)
[2022-02-14] MEDS ORDERED: ACETAMINOPHEN 325 MG TABLET (FP) ONE (12:23)
[2022-02-14] MEDS ORDERED: GABAPENTIN 300 MG CAPSULE ONE (13:49)
[2022-02-14] MEDS: GABAPENTIN 300 MG CAPSULE PO SCH ×2 (13:55→21:48)
[2022-02-14 16:03] VITALS: BMI 41.7
[2022-02-14] MEDS ORDERED: metFORMIN HCL 500 MG TABLET (FP) PO SCH (16:30)
[2022-02-14] MEDS ORDERED: INSULIN (NOVOLOG) ASPART 100 UNITS/ML 10ML VIAL ONE ×2 (16:51→16:52)
[2022-02-14] MEDS: INSULIN (NOVOLOG MIX 70/30) 100 UNITS/ML MDV SQ SCH (16:54)
[2022-02-14] MEDS: INSULIN (NOVOLOG) ASPART 100 UNITS/ML 10ML VIAL SQ SCH (16:58)
[2022-02-14] MEDS: methylPREDNISolone NA SUCC 40 MG/1 ML VIAL IVPUSH SCH ×2 (17:01→21:48)
[2022-02-14] MEDS: NICOTINE 14 MG/24 HOURS TOPICAL PATCH TD SCH (18:17)
[2022-02-14] MEDS: MONTELUKAST NA 10 MG TABLET PO SCH (21:48)
[2022-02-14] MEDS: ARIPiprazole 15 MG TABLET PO SCH (21:48)
[2022-02-15] MEDS: ACETAMINOPHEN 325 MG TABLET (FP) PO PRN (01:40)
[2022-02-15] MEDS: methylPREDNISolone NA SUCC 40 MG/1 ML VIAL IVPUSH SCH ×4 (02:00→21:14)
[2022-02-15] MEDS: INSULIN (NOVOLOG MIX 70/30) 100 UNITS/ML MDV SQ SCH ×2 (06:13→16:10)
[2022-02-15] MEDS: GABAPENTIN 300 MG CAPSULE PO SCH ×3 (06:13→21:14)
[2022-02-15] MEDS: INSULIN (NOVOLOG) ASPART 100 UNITS/ML 10ML VIAL SQ SCH ×4 (06:15→16:11)
[2022-02-15] MEDS: glipiZIDE-XL 5 MG TAB.ER.24 PO SCH (06:17)
[2022-02-15] MEDS: PANTOPRAZOLE 40 MG TABLET PO SCH (09:43)
[2022-02-15] MEDS: NICOTINE 14 MG/24 HOURS TOPICAL PATCH TD SCH (09:47)
[2022-02-15] MEDS: ENOXAPARIN NA (PORCINE) 40 MG/0.4 ML DISP.SYRIN SQ SCH (09:52)
[2022-02-15] MEDS: AZITHROMYCIN IVPB 500 MG/250 ML BAG IVPB SCH (11:00)
[2022-02-15] MEDS ORDERED: ALBUTEROL SO4 0.083% IH SOL 2.5 MG/3 ML VIAL.NEB. NEB PRN (12:10)
[2022-02-15] MEDS: ALBUTEROL SO4 2.5/IPRATROPIUM 0.5 INH SOL 3 ML VIAL.NEB. NEB SCH ×2 (14:08→20:06)
[2022-02-15] MEDS: ARIPiprazole 15 MG TABLET PO SCH (21:14)
[2022-02-15] MEDS: MONTELUKAST NA 10 MG TABLET PO SCH (21:14)
[2022-02-15] MEDS: SENNOSIDES 8.6MG TABLET (FP) PO PRN (21:14)
[2022-02-16] MEDS: methylPREDNISolone NA SUCC 40 MG/1 ML VIAL IVPUSH SCH ×4 (02:28→21:54)
[2022-02-16] MEDS ORDERED: FAMOTIDINE 20 MG/50 ML IVPB 20 MG/50 ML MG IVPB ONE (06:02)
[2022-02-16] MEDS: INSULIN (NOVOLOG MIX 70/30) 100 UNITS/ML MDV SQ SCH ×2 (06:08→16:26)
[2022-02-16] MEDS: GABAPENTIN 300 MG CAPSULE PO SCH ×4 (06:08→22:01)
[2022-02-16] MEDS: glipiZIDE-XL 5 MG TAB.ER.24 PO SCH (06:08)
[2022-02-16] MEDS: INSULIN (NOVOLOG) ASPART 100 UNITS/ML 10ML VIAL SQ SCH ×3 (06:10→16:26)
[2022-02-16] MEDS: ALBUTEROL SO4 2.5/IPRATROPIUM 0.5 INH SOL 3 ML VIAL.NEB. NEB SCH ×3 (07:20→20:30)
[2022-02-16] MEDS: NICOTINE 14 MG/24 HOURS TOPICAL PATCH TD SCH (09:44)
[2022-02-16] MEDS: PANTOPRAZOLE 40 MG TABLET PO SCH (09:44)
[2022-02-16] MEDS: ENOXAPARIN NA (PORCINE) 40 MG/0.4 ML DISP.SYRIN SQ SCH (09:44)
[2022-02-16] MEDS: AZITHROMYCIN IVPB 500 MG/250 ML BAG IVPB SCH (09:44)
[2022-02-16] MEDS ORDERED: INSULIN (NOVOLOG) ASPART 100 UNITS/ML 10ML VIAL ONE (11:18)
[2022-02-16] MEDS: ACETAMINOPHEN 325 MG TABLET (FP) PO PRN (12:53)
[2022-02-16] MEDS ORDERED: INSULIN (NOVOLOG MIX 70/30) 100 UNITS/ML MDV SQ ONE (16:14)
[2022-02-16] MEDS: MELATONIN 5 MG TABLETS PO SCH (21:52)
[2022-02-16] MEDS: ARIPiprazole 15 MG TABLET PO SCH (21:52)
[2022-02-16] MEDS: MONTELUKAST NA 10 MG TABLET PO SCH (21:54)
[2022-02-16] MEDS: BUDESONIDE/FORMETEROL FUMARATE 160/4.5 mcg INHALER IH SCH (21:54)
[2022-02-16] MEDS: METHOCARBAMOL 500 MG TABLET PO SCH (21:58)
[2022-02-17] MEDS: GABAPENTIN 300 MG CAPSULE PO SCH ×3 (06:23→21:29)
[2022-02-17] MEDS: methylPREDNISolone NA SUCC 40 MG/1 ML VIAL IVPUSH SCH ×2 (06:23→21:28)
[2022-02-17] MEDS: glipiZIDE-XL 5 MG TAB.ER.24 PO SCH (06:38)
[2022-02-17] MEDS: INSULIN (NOVOLOG MIX 70/30) 100 UNITS/ML MDV SQ SCH ×2 (06:39→16:45)
[2022-02-17] MEDS: INSULIN (NOVOLOG) ASPART 100 UNITS/ML 10ML VIAL SQ SCH ×3 (06:43→16:45)
[2022-02-17] MEDS: ALBUTEROL SO4 2.5/IPRATROPIUM 0.5 INH SOL 3 ML VIAL.NEB. NEB SCH ×3 (07:16→19:45)
[2022-02-17] MEDS ORDERED: methylPREDNISolone NA SUCC 40 MG/1 ML VIAL IVPUSH SCH (08:12)
[2022-02-17] MEDS: PANTOPRAZOLE 40 MG TABLET PO SCH (09:46)
[2022-02-17] MEDS: NICOTINE 14 MG/24 HOURS TOPICAL PATCH TD SCH (09:46)
[2022-02-17] MEDS: ENOXAPARIN NA (PORCINE) 40 MG/0.4 ML DISP.SYRIN SQ SCH (09:47)
[2022-02-17] MEDS: AZITHROMYCIN IVPB 500 MG/250 ML BAG IVPB SCH (09:47)
[2022-02-17] MEDS: METHOCARBAMOL 500 MG TABLET PO SCH ×2 (09:47→21:28)
[2022-02-17] MEDS: BUDESONIDE/FORMETEROL FUMARATE 160/4.5 mcg INHALER IH SCH ×2 (09:54→21:33)
[2022-02-17] MEDS: ACETAMINOPHEN 325 MG TABLET (FP) PO PRN (10:11)
[2022-02-17] MEDS ORDERED: INSULIN (NOVOLOG) ASPART 100 UNITS/ML 10ML VIAL ONE (10:28)
[2022-02-17] MEDS: ARIPiprazole 15 MG TABLET PO SCH (21:28)
[2022-02-17] MEDS: MELATONIN 5 MG TABLETS PO SCH (21:28)
[2022-02-17] MEDS: MONTELUKAST NA 10 MG TABLET PO SCH (21:28)
[2022-02-17] MEDS: SENNOSIDES 8.6MG TABLET (FP) PO PRN (21:47)
[2022-02-18 05:32] VITALS: TEMP 97.7
[2022-02-18] MEDS: GABAPENTIN 300 MG CAPSULE PO SCH (06:03)
[2022-02-18] MEDS: INSULIN (NOVOLOG MIX 70/30) 100 UNITS/ML MDV SQ SCH (06:03)
[2022-02-18] MEDS: glipiZIDE-XL 5 MG TAB.ER.24 PO SCH (06:03)
[2022-02-18] MEDS: INSULIN (NOVOLOG) ASPART 100 UNITS/ML 10ML VIAL SQ SCH ×2 (06:09→11:53)
[2022-02-18] MEDS: ALBUTEROL SO4 2.5/IPRATROPIUM 0.5 INH SOL 3 ML VIAL.NEB. NEB SCH ×2 (07:44→14:40)
[2022-02-18] MEDS: NICOTINE 14 MG/24 HOURS TOPICAL PATCH TD SCH (10:01)
[2022-02-18] MEDS: ENOXAPARIN NA (PORCINE) 40 MG/0.4 ML DISP.SYRIN SQ SCH (10:01)
[2022-02-18] MEDS: PANTOPRAZOLE 40 MG TABLET PO SCH (10:02)
[2022-02-18] MEDS: methylPREDNISolone NA SUCC 40 MG/1 ML VIAL IVPUSH SCH (10:02)
[2022-02-18] MEDS: METHOCARBAMOL 500 MG TABLET PO SCH (10:02)
[2022-02-18] MEDS: AZITHROMYCIN IVPB 500 MG/250 ML BAG IVPB SCH (10:02)
[2022-02-18] MEDS: BUDESONIDE/FORMETEROL FUMARATE 160/4.5 mcg INHALER IH SCH (10:05)
[2022-02-18] MEDS ORDERED: INSULIN (NOVOLOG) ASPART 100 UNITS/ML 10ML VIAL ONE (11:32)
[2022-02-18 15:54] VITALS: BP 132/68; PULSE 76
== END 2022-02-18 17:09 | disposition home or self-care (01) | DRG 191 ==
LOC: JER 02:28 → JERBED 09:22 → J6S 15:46
PROVIDERS: ADMIT Internal Medicine; ATTEND Internal Medicine
DX: J44.1 Chronic obstructive pulmonary disease with (acute) exacerbation (principal); J45.21 Mild intermittent asthma with (acute) exacerbation; M62.830 Muscle spasm of back; E11.65 Type 2 diabetes mellitus with hyperglycemia
CPT/HCPCS: 36415; 71045-TC-FY; 71250-TC; 80053; 82962; 83036; 83880; 84484; 85025; 93005; 93010; 94640; 99285-25; C9803-CS; U0003; U0005

== ENCOUNTER 2022-02-21 22:28 | Inpatient (IN) | payer OTHER ==
[2022-02-21] MEDS ORDERED: MAGNESIUM SULF 50% (8.12 MEQ/2 ML-1 GM VIAL) IVPB ONE (22:53)
[2022-02-21] MEDS ORDERED: methylPREDNISolone NA SUCC 125 MG/2 ML VIAL IVPUSH ONE (22:53)
[2022-02-21] MEDS ORDERED: MAGNESIUM SULFATE IN WATER 2 GM/50 ML IVPB IVPB ONE (22:56)
[2022-02-21] MEDS ORDERED: methylPREDNISolone NA SUCC 125 MG/2 ML VIAL ONE (22:56)
[2022-02-21 23:12] LABS: EOS % 0.8 % (0-4.5); HEMATOCRIT 41.5 % (32.4-45.2); HEMOGLOBIN 13.5 GM/dL (10.7-15.3); LYMPH % 22.9 % (8-40); MCH 26.7 pg (25.7-33.7); MCHC 32.7 g/dl (32.0-36.0); MEAN CELL VOLUME 81.7 fl (80-96); MONO % 5.7 % (3.8-10.2); NEUT % 69.6 % (42.8-82.8); PLATELET COUNT 479 10^3/uL (134-434); RBC 5.07 M/mm3 (3.60-5.2); RDW 17.3 % (11.6-15.6); WHITE BLOOD COUNT 19.6 K/mm3 (4.0-10.0)
[2022-02-21] MEDS: ALBUTEROL SO4 2.5/IPRATROPIUM 0.5 INH SOL 3 ML VIAL.NEB. NEB SCH ×3 (23:21→23:55)
[2022-02-21 23:34] LABS: ALBUMIN 3.6 g/dl (3.4-5.0); BLOOD UREA NITROGEN 13.6 mg/dL (7-18); CALCIUM 9.6 mg/dL (8.5-10.1)
[2022-02-21 23:36] LABS: CREATININE 1.1 mg/dL (0.55-1.3)
[2022-02-21 23:39] LABS: BILIRUBIN,TOTAL 0.3 mg/dL (0.2-1); TOT PROT 7.6 g/dl (6.4-8.2)
[2022-02-21] MEDS ORDERED: ALBUTEROL SO4 2.5/IPRATROPIUM 0.5 INH SOL 3 ML VIAL.NEB. NEB ONE (23:53)
[2022-02-22] MEDS: ALBUTEROL SO4 2.5/IPRATROPIUM 0.5 INH SOL 3 ML VIAL.NEB. NEB SCH ×5 (02:00→20:19)
[2022-02-22] MEDS ORDERED: ACETAMINOPHEN 1000 MG/100 ML BAG IVPB ONE (02:06)
[2022-02-22] MEDS ORDERED: ACETAMINOPHEN INJECTION 100 ML IVPB ONE (02:10)
[2022-02-22] MEDS ORDERED: ACETAMINOPHEN 325 MG TABLET (FP) PO PRN (02:59)
[2022-02-22 03:41] LABS: URINE APPEARANCE CLEAR; URINE BILIRUBIN NEGATIVE (NEGATIVE); URINE COLOR YELLOW; URINE GLUCOSE (UA) 3+ (NEGATIVE); URINE KETONE TRACE (NEGATIVE); URINE LEUK ESTERASE NEGATIVE (NEGATIVE); URINE NITRITE NEGATIVE (NEGATIVE); URINE PROTEIN NEGATIVE (NEGATIVE); URINE UROBILINOGEN 0.2 mg/dL (0.2-1.0)
[2022-02-22] MEDS: GABAPENTIN 300 MG CAPSULE PO SCH ×3 (06:26→21:59)
[2022-02-22] MEDS: sitaGLIPtin PHOSPHATE 50 MG TABLET PO SCH (06:26)
[2022-02-22] MEDS: metFORMIN HCL 500 MG TABLET (FP) PO SCH ×2 (06:26→17:53)
[2022-02-22] MEDS ORDERED: INSULIN (NOVOLOG MIX 70/30) 100 UNITS/ML MDV SQ SCH ×2 (07:00)
[2022-02-22 07:24] VITALS: BMI 40.6
[2022-02-22] MEDS: ENOXAPARIN NA (PORCINE) 40 MG/0.4 ML DISP.SYRIN SQ SCH (09:20)
[2022-02-22] MEDS: FAMOTIDINE 20 MG TABLET PO SCH (09:20)
[2022-02-22] MEDS: NICOTINE 14 MG/24 HOURS TOPICAL PATCH TD SCH (09:20)
[2022-02-22] MEDS: glipiZIDE-XL 5 MG TAB.ER.24 PO SCH (09:21)
[2022-02-22] MEDS ORDERED: methylPREDNISolone NA SUCC 40 MG/1 ML VIAL IVPUSH SCH (10:00)
[2022-02-22] MEDS ORDERED: INSULIN (NOVOLOG) ASPART 100 UNITS/ML 10ML VIAL SQ ONE (13:17)
[2022-02-22] MEDS: BUDESONIDE/FORMETEROL FUMARATE 160/4.5 mcg INHALER IH SCH ×2 (14:59→21:59)
[2022-02-22] MEDS ORDERED: guaiFENesin/D-M SUGAR-FREE/ACLHOL-FREE 118 ML BOTTLE PO PRN (15:34)
[2022-02-22] MEDS: INSULIN (NOVOLOG MIX 70/30) 100 UNITS/ML MDV SQ SCH (17:00)
[2022-02-22] MEDS: methylPREDNISolone NA SUCC 40 MG/1 ML VIAL IVPB SCH (17:53)
[2022-02-22] MEDS: MAG HYDROX/AL HYDROX/SIMETH 30 ML UNIT-DOSE CUP PO PRN (19:31)
[2022-02-22] MEDS: MELATONIN 5 MG TABLETS PO SCH (21:58)
[2022-02-22] MEDS: ARIPiprazole 5 MG TABLET PO SCH (21:58)
[2022-02-22] MEDS: MONTELUKAST NA 10 MG TABLET PO SCH (21:59)
[2022-02-23] MEDS: methylPREDNISolone NA SUCC 40 MG/1 ML VIAL IVPB SCH ×3 (01:42→19:11)
[2022-02-23] MEDS: metFORMIN HCL 500 MG TABLET (FP) PO SCH ×2 (06:17→18:07)
[2022-02-23] MEDS: GABAPENTIN 300 MG CAPSULE PO SCH ×3 (06:17→21:42)
[2022-02-23] MEDS: sitaGLIPtin PHOSPHATE 50 MG TABLET PO SCH (06:18)
[2022-02-23] MEDS: INSULIN (NOVOLOG MIX 70/30) 100 UNITS/ML MDV SQ SCH ×2 (06:18→18:08)
[2022-02-23] MEDS: glipiZIDE-XL 5 MG TAB.ER.24 PO SCH (06:18)
[2022-02-23] MEDS: ALBUTEROL SO4 2.5/IPRATROPIUM 0.5 INH SOL 3 ML VIAL.NEB. NEB SCH ×5 (07:23→20:45)
[2022-02-23 09:10] LABS: INR 1.28 (0.83-1.09); PROTHROMBIN TIME (PATIENT) 14.7 SEC (9.7-13.0)
[2022-02-23 09:12] LABS: HEMATOCRIT 37.1 % (32.4-45.2); MCH 26.7 pg (25.7-33.7); MCHC 32.4 g/dl (32.0-36.0); MEAN CELL VOLUME 82.3 fl (80-96); MEAN PLT VOLUME 7.5 fl (7.5-11.1); PLATELET COUNT 411 10^3/uL (134-434); RDW 18.1 % (11.6-15.6); WHITE BLOOD COUNT 20.7 K/mm3 (4.0-10.0)
[2022-02-23 09:13] LABS: ACTIVATED PTT 24.5 SECONDS (25.2-36.5)
[2022-02-23] MEDS: FAMOTIDINE 20 MG TABLET PO SCH (09:59)
[2022-02-23] MEDS: ENOXAPARIN NA (PORCINE) 40 MG/0.4 ML DISP.SYRIN SQ SCH (09:59)
[2022-02-23] MEDS: NICOTINE 14 MG/24 HOURS TOPICAL PATCH TD SCH (09:59)
[2022-02-23] MEDS: BUDESONIDE/FORMETEROL FUMARATE 160/4.5 mcg INHALER IH SCH ×2 (10:00→21:46)
[2022-02-23 10:05] LABS: ANISOCYTOSIS 0; HELMET CELLS 0; HOWELL-JOLLY BODIES 0; MACROCYTOSIS 0; OVALOCYTE 0; ROULEAU 0; SICKELED CELLS 0; TARGET CELLS 0; TEAR DROP CELLS 0; TOXIC GRANULATION 0
[2022-02-23 10:12] LABS: BLOOD UREA NITROGEN 16.2 mg/dL (7-18)
[2022-02-23] MEDS: ARIPiprazole 5 MG TABLET PO SCH (21:42)
[2022-02-23] MEDS: MONTELUKAST NA 10 MG TABLET PO SCH (21:42)
[2022-02-23] MEDS: MELATONIN 5 MG TABLETS PO SCH (21:42)
[2022-02-24] MEDS: methylPREDNISolone NA SUCC 40 MG/1 ML VIAL IVPB SCH ×3 (03:19→22:00)
[2022-02-24] MEDS: glipiZIDE-XL 5 MG TAB.ER.24 PO SCH (06:01)
[2022-02-24] MEDS: sitaGLIPtin PHOSPHATE 50 MG TABLET PO SCH (06:02)
[2022-02-24] MEDS: metFORMIN HCL 500 MG TABLET (FP) PO SCH (06:02)
[2022-02-24] MEDS: GABAPENTIN 300 MG CAPSULE PO SCH ×3 (06:02→21:32)
[2022-02-24] MEDS: INSULIN (NOVOLOG MIX 70/30) 100 UNITS/ML MDV SQ SCH ×2 (06:03→16:27)
[2022-02-24] MEDS: ALBUTEROL SO4 2.5/IPRATROPIUM 0.5 INH SOL 3 ML VIAL.NEB. NEB SCH ×4 (07:37→20:36)
[2022-02-24] MEDS: NICOTINE 14 MG/24 HOURS TOPICAL PATCH TD SCH ×2 (10:18→21:46)
[2022-02-24] MEDS: FAMOTIDINE 20 MG TABLET PO SCH (10:20)
[2022-02-24] MEDS: ENOXAPARIN NA (PORCINE) 40 MG/0.4 ML DISP.SYRIN SQ SCH (10:24)
[2022-02-24] MEDS: BUDESONIDE/FORMETEROL FUMARATE 160/4.5 mcg INHALER IH SCH ×2 (10:28→21:33)
[2022-02-24] MEDS: POLYETHYLENE GLYCOL (HEALTHYLAX) 3350 17 GM PACKET PO SCH (12:26)
[2022-02-24] MEDS: INSULIN SLIDING SCALE (NOVOLOG) 1 VIAL SQ SCH ×3 (12:36→21:32)
[2022-02-24] MEDS: glipiZIDE 5 MG TABLET (FP) PO SCH (16:25)
[2022-02-24] MEDS: MELATONIN 5 MG TABLETS PO SCH (21:31)
[2022-02-24] MEDS: ARIPiprazole 15 MG TABLET PO SCH (21:31)
[2022-02-24] MEDS: MONTELUKAST NA 10 MG TABLET PO SCH (21:33)
[2022-02-25] MEDS: GABAPENTIN 300 MG CAPSULE PO SCH ×3 (06:15→21:29)
[2022-02-25] MEDS: INSULIN SLIDING SCALE (NOVOLOG) 1 VIAL SQ SCH ×4 (06:21→22:45)
[2022-02-25] MEDS: glipiZIDE 5 MG TABLET (FP) PO SCH ×2 (06:21→18:28)
[2022-02-25] MEDS: INSULIN (NOVOLOG MIX 70/30) 100 UNITS/ML MDV SQ SCH ×2 (06:21→16:27)
[2022-02-25] MEDS: sitaGLIPtin PHOSPHATE 50 MG TABLET PO SCH (06:21)
[2022-02-25] MEDS: ALBUTEROL SO4 2.5/IPRATROPIUM 0.5 INH SOL 3 ML VIAL.NEB. NEB SCH ×4 (08:39→20:17)
[2022-02-25] MEDS: ENOXAPARIN NA (PORCINE) 40 MG/0.4 ML DISP.SYRIN SQ SCH (10:44)
[2022-02-25] MEDS: NICOTINE 14 MG/24 HOURS TOPICAL PATCH TD SCH (10:45)
[2022-02-25] MEDS: POLYETHYLENE GLYCOL (HEALTHYLAX) 3350 17 GM PACKET PO SCH (10:45)
[2022-02-25] MEDS: FAMOTIDINE 20 MG TABLET PO SCH (10:45)
[2022-02-25] MEDS: BUDESONIDE/FORMETEROL FUMARATE 160/4.5 mcg INHALER IH SCH ×2 (10:45→21:41)
[2022-02-25] MEDS: methylPREDNISolone NA SUCC 40 MG/1 ML VIAL IVPB SCH ×2 (11:01→21:28)
[2022-02-25] MEDS: MELATONIN 5 MG TABLETS PO SCH (21:28)
[2022-02-25] MEDS: ATORVASTATIN CA 10 MG TABLET (FP) PO SCH (21:29)
[2022-02-25] MEDS: MONTELUKAST NA 10 MG TABLET PO SCH (21:29)
[2022-02-25] MEDS: ARIPiprazole 15 MG TABLET PO SCH (21:29)
[2022-02-26] MEDS: GABAPENTIN 300 MG CAPSULE PO SCH ×3 (05:34→21:42)
[2022-02-26] MEDS: glipiZIDE 5 MG TABLET (FP) PO SCH ×2 (07:21→15:44)
[2022-02-26] MEDS: sitaGLIPtin PHOSPHATE 50 MG TABLET PO SCH (07:21)
[2022-02-26] MEDS: INSULIN (NOVOLOG MIX 70/30) 100 UNITS/ML MDV SQ SCH ×2 (07:23→16:22)
[2022-02-26] MEDS: INSULIN SLIDING SCALE (NOVOLOG) 1 VIAL SQ SCH ×4 (07:24→21:40)
[2022-02-26] MEDS: ALBUTEROL SO4 2.5/IPRATROPIUM 0.5 INH SOL 3 ML VIAL.NEB. NEB SCH ×4 (08:20→20:52)
[2022-02-26] MEDS: FAMOTIDINE 20 MG TABLET PO SCH (10:14)
[2022-02-26] MEDS: NICOTINE 14 MG/24 HOURS TOPICAL PATCH TD SCH (10:14)
[2022-02-26] MEDS: methylPREDNISolone NA SUCC 40 MG/1 ML VIAL IVPB SCH ×2 (10:14→21:42)
[2022-02-26] MEDS: POLYETHYLENE GLYCOL (HEALTHYLAX) 3350 17 GM PACKET PO SCH (10:15)
[2022-02-26] MEDS: BUDESONIDE/FORMETEROL FUMARATE 160/4.5 mcg INHALER IH SCH (10:15)
[2022-02-26] MEDS: ENOXAPARIN NA (PORCINE) 40 MG/0.4 ML DISP.SYRIN SQ SCH (10:15)
[2022-02-26] MEDS: RAMIPRIL 5 MG CAPSULE PO SCH (12:48)
[2022-02-26] MEDS: MAG HYDROX/AL HYDROX/SIMETH 30 ML UNIT-DOSE CUP PO PRN (13:43)
[2022-02-26] MEDS: ATORVASTATIN CA 10 MG TABLET (FP) PO SCH (21:41)
[2022-02-26] MEDS: ARIPiprazole 15 MG TABLET PO SCH (21:41)
[2022-02-26] MEDS: MELATONIN 5 MG TABLETS PO SCH (21:41)
[2022-02-26] MEDS: MONTELUKAST NA 10 MG TABLET PO SCH (21:42)
[2022-02-27] MEDS: BUDESONIDE/FORMETEROL FUMARATE 160/4.5 mcg INHALER IH SCH ×2 (00:02→09:35)
[2022-02-27] MEDS ORDERED: ALBUTEROL SO4 2.5/IPRATROPIUM 0.5 INH SOL 3 ML VIAL.NEB. NEB PRN (02:47)
[2022-02-27] MEDS: glipiZIDE 5 MG TABLET (FP) PO SCH ×2 (06:52→18:31)
[2022-02-27] MEDS: INSULIN SLIDING SCALE (NOVOLOG) 1 VIAL SQ SCH ×3 (06:52→18:32)
[2022-02-27] MEDS: sitaGLIPtin PHOSPHATE 50 MG TABLET PO SCH (06:52)
[2022-02-27] MEDS: INSULIN (NOVOLOG MIX 70/30) 100 UNITS/ML MDV SQ SCH ×2 (06:53→18:31)
[2022-02-27 07:44] LABS: GLUCOSE,RANDOM 441 mg/dL (74-106)
[2022-02-27] MEDS: GABAPENTIN 300 MG CAPSULE PO SCH ×2 (09:32→18:31)
[2022-02-27] MEDS: POLYETHYLENE GLYCOL (HEALTHYLAX) 3350 17 GM PACKET PO SCH (09:34)
[2022-02-27] MEDS: FAMOTIDINE 20 MG TABLET PO SCH (09:34)
[2022-02-27] MEDS: ENOXAPARIN NA (PORCINE) 40 MG/0.4 ML DISP.SYRIN SQ SCH (09:34)
[2022-02-27] MEDS: methylPREDNISolone NA SUCC 40 MG/1 ML VIAL IVPB SCH (09:34)
[2022-02-27] MEDS: RAMIPRIL 5 MG CAPSULE PO SCH (13:02)
[2022-02-27] MEDS: NICOTINE 14 MG/24 HOURS TOPICAL PATCH TD SCH (13:02)
[2022-02-27 15:09] VITALS: BP 137/84; PULSE 88; TEMP 98.2
[2022-02-27] MEDS ORDERED: predniSONE 20 MG TABLET (UD) PO SCH (18:00)
== END 2022-02-27 18:57 | disposition home or self-care (01) | DRG 191 ==
LOC: JER 22:28 → JERBED 02-22 02:51 → J5S 02-22 05:33
PROVIDERS: ADMIT Hospitalist; ATTEND Internal Medicine
DX: J44.1 Chronic obstructive pulmonary disease with (acute) exacerbation (principal); J45.901 Unspecified asthma with (acute) exacerbation; F25.9 Schizoaffective disorder, unspecified; E11.65 Type 2 diabetes mellitus with hyperglycemia; Z79.84 Long term (current) use of oral hypoglycemic drugs; F32.A Depression, unspecified; F41.9 Anxiety disorder, unspecified; F17.210 Nicotine dependence, cigarettes, uncomplicated
CPT/HCPCS: 0241U-QW; 36415; 71045-TC-FY; 80048; 80053; 81003; 82947; 82962; 85025; 85610; 85730; 87086; 93005; 93010; 94640; 99285-25; C9803-CS; U0003; U0005

== ENCOUNTER 2022-06-18 22:16 | Emergency (ER) | payer OTHER ==
[2022-06-18 22:26] VITALS: BP 106/52; PULSE 95; RESP 20; TEMP 98; BMI 40.7
[2022-06-18] MEDS ORDERED: ACETAMINOPHEN 500 MG TABLET (FP) PO ONE (23:30)
[2022-06-18] MEDS ORDERED: ACETAMINOPHEN 325 MG TABLET (FP) ONE (23:44)
[2022-06-19] MEDS ORDERED: ACETAMINOPHEN 325 MG TABLET (FP) PO ONE (00:14)
== END 2022-06-19 00:28 | disposition home or self-care (01) ==
LOC: JER 22:16
DX: R51.9 Headache, unspecified (principal); H57.13 Ocular pain, bilateral; J34.9 Unspecified disorder of nose and nasal sinuses
CPT/HCPCS: 0241U-QW; 99283-25

== ENCOUNTER 2022-11-07 05:16 | Day surgery (SDC) | payer OTHER ==
[2022-11-04 18:31] VITALS: BMI 39.3
[~2022-11-07 05:16] MED LIST: BUPIVACAINE HCL/PF 0.5% (5MG/ML) 10 ML VIAL NR ONE; LIDOCAINE HCL 1%, 10 MG/ML (20ML VIAL) NR ONE
[2022-11-07] MEDS ORDERED: BUPIVACAINE HCL/PF 0.5% (5MG/ML) 10 ML VIAL ONE (07:14)
[2022-11-07] MEDS ORDERED: LIDOCAINE HCL 1%, 10 MG/ML (10ML VIAL) MDV ONE (07:14)
[2022-11-07] MEDS ORDERED: PROPOFOL 40 ML ONE ×2 (07:15→07:38)
[2022-11-07] MEDS ORDERED: LIDOCAINE HCL/PF 2% SDV 5ML VIAL ONE (07:15)
[2022-11-07 07:18] LABS: INR 1.28 (0.83-1.09); PROTHROMBIN TIME (PATIENT) 14.8 SEC (9.7-13.0)
[2022-11-07] MEDS ORDERED: MIDAZOLAM HCL 2 MG/2 ML SINGLE DOSE VIAL ONE ×2 (07:35→07:36)
[2022-11-07] MEDS ORDERED: ceFAZolin SODIUM 1 GM VIAL IVPB ONE (08:21)
[2022-11-07] MEDS ORDERED: BUPIVACAINE HCL/PF 0.5% (5MG/ML) 10 ML VIAL NR ONE (08:30)
[2022-11-07] MEDS ORDERED: LIDOCAINE HCL 1%, 10 MG/ML (20ML VIAL) NR ONE (08:30)
[2022-11-07] MEDS ORDERED: ONDANSETRON 4 MG/2 ML VIAL IVPUSH PRN (08:56)
[2022-11-07] MEDS ORDERED: oxyCODONE HCL 5 MG TABLET PO PRN (08:56)
[2022-11-07] MEDS ORDERED: LACTATED RINGERS SOLUTION 1,000 ML IV SCH (09:00)
[2022-11-07 09:52] VITALS: TEMP 97.5
[2022-11-07 13:01] VITALS: BP 110/59; PULSE 78; RESP 20
== END 2022-11-07 10:24 | disposition home or self-care (01) ==
LOC: JASU-SURG 05:16
PROVIDERS: ATTEND Orthopaedic Surgery
PROC: 0LB50ZZ Excision of Right Lower Arm and Wrist Tendon, Open Approach (ICD-10-PCS; principal; 2022-11-07 08:00)
DX: M67.431 Ganglion, right wrist (principal)
CPT/HCPCS: 36415; 81025; 82962; 85610; 93005; 93010; 94760

== ENCOUNTER 2023-03-13 21:40 | Emergency (ER) | payer OTHER ==
[2023-03-13 22:14] VITALS: BP 134/75; PULSE 89; RESP 16; TEMP 97.9; BMI 38.9
[2023-03-14] MEDS ORDERED: ONDANSETRON 4 MG/2 ML VIAL IVPUSH ONE (00:24)
[2023-03-14] MEDS ORDERED: FAMOTIDINE 20 MG/50 ML IVPB 20 MG/50 ML MG IVPB ONE ×2 (00:24→01:21)
[2023-03-14] MEDS ORDERED: ACETAMINOPHEN 1000 MG/100 ML BAG IVPB ONE (00:24)
[2023-03-14] MEDS ORDERED: LACTATED RINGERS SOLUTION 1000 ML INFUS.BAG IV ONE (00:24)
[2023-03-14] MEDS ORDERED: ALBUTEROL SO4 2.5/IPRATROPIUM 0.5 INH SOL 3 ML VIAL.NEB. NEB ONE ×2 (00:36→01:20)
[2023-03-14] MEDS ORDERED: ONDANSETRON 4 MG/2 ML VIAL ONE (01:21)
[2023-03-14] MEDS ORDERED: ACETAMINOPHEN INJECTION 100 ML IVPB ONE ×2 (01:21→02:40)
[2023-03-14 02:05] LABS: EOS % 0.9 % (0-4.5); HEMATOCRIT 37.2 % (32.4-45.2); HEMOGLOBIN 11.9 GM/dL (10.7-15.3); LYMPH % 32.8 % (8-40); MCH 26.5 pg (25.7-33.7); MCHC 31.9 g/dl (32.0-36.0); MEAN CELL VOLUME 82.9 fl (80-96); MEAN PLT VOLUME 7.4 fl (7.5-11.1); MONO % 7.9 % (3.8-10.2); NEUT % 57.4 % (42.8-82.8); PLATELET COUNT 535 10^3/uL (134-434); RBC 4.49 M/mm3 (3.60-5.2); RDW 18.6 % (11.6-15.6); WHITE BLOOD COUNT 13.6 K/mm3 (4.0-10.0)
[2023-03-14 02:14] LABS: VENOUS BASE EXCESS -1.2 mmol/L (-2-2); VENOUS O2 SATURATION 16.3 % (70-80); VENOUS PCO2 44.8 mmHg (38-52); VENOUS PH 7.355 (7.310-7.410)
[2023-03-14 02:24] LABS: POTASSIUM 4.8 mmol/L (3.5-5.1)
[2023-03-14 02:26] LABS: CALCIUM 9.4 mg/dL (8.5-10.1)
[2023-03-14 02:27] LABS: ALBUMIN 3.7 g/dl (3.4-5.0); BLOOD UREA NITROGEN 9.8 mg/dL (7-18)
[2023-03-14 02:30] LABS: CREATININE 0.9 mg/dL (0.55-1.3)
[2023-03-14 02:31] LABS: BILIRUBIN,TOTAL 0.3 mg/dL (0.2-1); TOT PROT 7.5 g/dl (6.4-8.2)
[2023-03-14] MEDS ORDERED: CEFTRIAXONE 1 GM in DEXTROSE 5%-WATER - 50 ML IVPB ONE (03:03)
[2023-03-14 03:24] LABS: URINE APPEARANCE CLEAR; URINE BILIRUBIN NEGATIVE (NEGATIVE); URINE COLOR YELLOW; URINE GLUCOSE (UA) NEGATIVE (NEGATIVE); URINE KETONE NEGATIVE (NEGATIVE); URINE LEUK ESTERASE NEGATIVE (NEGATIVE); URINE NITRITE NEGATIVE (NEGATIVE); URINE PROTEIN NEGATIVE (NEGATIVE); URINE UROBILINOGEN 0.2 mg/dL (0.2-1.0)
[2023-03-14] MEDS ORDERED: CEPHALEXIN MONOHYDRATE 500 MG CAPSULE (UD) PO ONE (04:03)
[2023-03-14] MEDS ORDERED: CEPHALEXIN MONOHYDRATE 500 MG CAPSULE (UD) ONE (04:31)
== END 2023-03-14 04:48 | disposition home or self-care (01) ==
LOC: JER 21:40
PROC: 3E033GC Introduction of Other Therapeutic Substance into Peripheral Vein, Percutaneous Approach (ICD-10-PCS; principal; 2023-03-14)
PROC: 3E033NZ Introduction of Analgesics, Hypnotics, Sedatives into Peripheral Vein, Percutaneous Approach (ICD-10-PCS; 2023-03-14)
PROC: 3E033GC Introduction of Other Therapeutic Substance into Peripheral Vein, Percutaneous Approach (ICD-10-PCS; 2023-03-14)
PROC: 3E0F7GC Introduction of Other Therapeutic Substance into Respiratory Tract, Via Natural or Artificial Opening (ICD-10-PCS; 2023-03-14)
DX: R11.2 Nausea with vomiting, unspecified (principal); R30.0 Dysuria; N30.90 Cystitis, unspecified without hematuria; R10.9 Unspecified abdominal pain
CPT/HCPCS: 36415; 71045-TC-FY; 80053; 81003; 82010; 82803; 83690; 83735; 84484; 84702; 85025; 87086; 93005; 93010; 99285-25

== ENCOUNTER 2023-04-18 13:36 | Emergency (ER) | payer OTHER ==
[2023-04-18 13:53] VITALS: BP 113/74; PULSE 93; RESP 18; TEMP 99; BMI 38.9
[2023-04-18] MEDS ORDERED: SODIUM CHLORIDE 0.9% 500 ML INFUS.BAG IV ONE (15:25)
[2023-04-18] MEDS ORDERED: ACETAMINOPHEN 1000 MG/100 ML BAG IVPB ONE (17:17)
[2023-04-18] MEDS ORDERED: ACETAMINOPHEN INJECTION 100 ML IVPB ONE (17:20)
[2023-04-18 17:31] LABS: BASO % 0.5 % (0-2.0); HEMATOCRIT 38.8 % (32.4-45.2); LYMPH % 23.3 % (8-40); MEAN CELL VOLUME 83.7 fl (80-96); MEAN PLT VOLUME 8.1 fl (7.5-11.1); MONO % 3.8 % (3.8-10.2); NEUT % 71.4 % (42.8-82.8); PLATELET COUNT 473 10^3/uL (134-434); RBC 4.63 M/mm3 (3.60-5.2); RDW 18.7 % (11.6-15.6)
[2023-04-18 17:54] LABS: POTASSIUM 5.8 mmol/L (3.5-5.1)
[2023-04-18 17:56] LABS: CALCIUM 9.6 mg/dL (8.5-10.1)
[2023-04-18 17:57] LABS: ALBUMIN 3.8 g/dl (3.4-5.0); BLOOD UREA NITROGEN 7.8 mg/dL (7-18)
[2023-04-18 18:00] LABS: CREATININE 0.9 mg/dL (0.55-1.3)
[2023-04-18 18:01] LABS: BILIRUBIN,TOTAL 0.4 mg/dL (0.2-1); TOT PROT 8.1 g/dl (6.4-8.2)
[2023-04-18 18:23] LABS: URINE APPEARANCE CLEAR; URINE BILIRUBIN NEGATIVE (NEGATIVE); URINE COLOR YELLOW; URINE GLUCOSE (UA) NEGATIVE (NEGATIVE); URINE KETONE NEGATIVE (NEGATIVE); URINE LEUK ESTERASE NEGATIVE (NEGATIVE); URINE NITRITE NEGATIVE (NEGATIVE); URINE PROTEIN NEGATIVE (NEGATIVE); URINE UROBILINOGEN 0.2 mg/dL (0.2-1.0)
[2023-04-18 19:10] LABS: POTASSIUM 4.3 mmol/L (3.5-5.1)
[2023-04-18 19:11] LABS: CALCIUM 8.8 mg/dL (8.5-10.1)
[2023-04-18 19:26] LABS: CREATININE 0.9 mg/dL (0.55-1.3)
== END 2023-04-18 19:56 | disposition home or self-care (01) ==
LOC: JER 13:36
PROC: 3E033NZ Introduction of Analgesics, Hypnotics, Sedatives into Peripheral Vein, Percutaneous Approach (ICD-10-PCS; principal; 2023-04-18)
DX: R07.9 Chest pain, unspecified (principal); R11.2 Nausea with vomiting, unspecified; R14.1 Gas pain; Z20.822 Contact with and (suspected) exposure to COVID-19
CPT/HCPCS: 0241U-QW; 36415; 71046-TC-FY; 80048; 80053; 81003; 84484; 84703; 85025; 87086; 93005; 93010; 99285-25

== ENCOUNTER 2023-11-27 21:38 | Emergency (ER) | payer OTHER ==
[2023-11-27 21:44] VITALS: RESP 16; BMI 40.7
[2023-11-27] MEDS ORDERED: MECLIZINE HCL 25 MG TABLET (FP) ONE (23:01)
[2023-11-27 23:06] LABS: BASO % 0.9 % (0-2.0); EOS % 1.6 % (0-4.5); HEMATOCRIT 36.2 % (32.4-45.2); LYMPH % 39.7 % (8-40); MCHC 33.1 g/dl (32.0-36.0); MEAN CELL VOLUME 84.7 fl (80-96); MEAN PLT VOLUME 7.2 fl (7.5-11.1); MONO % 6.7 % (3.8-10.2); NEUT % 51.1 % (42.8-82.8); PLATELET COUNT 366 10^3/uL (134-434); RBC 4.27 M/mm3 (3.60-5.2); RDW 17.6 % (11.6-15.6); WHITE BLOOD COUNT 12.3 K/mm3 (4.0-10.0)
[2023-11-27] MEDS: SODIUM CHLORIDE 0.9% 500 ML INFUS.BAG IV ONE (23:15)
[2023-11-27] MEDS: MECLIZINE HCL 25 MG TABLET (FP) PO ONE (23:15)
[2023-11-27 23:22] LABS: EPI CELLS 29 /uL (0-25.1); HYALINE CASTS 0 /uL (0-3.1); URINE APPEARANCE Error; URINE BACTERIA 1785 /uL (0-1359); URINE BILIRUBIN NEGATIVE (NEGATIVE); URINE COLOR YELLOW; URINE GLUCOSE (UA) 2+ (NEGATIVE); URINE KETONE NEGATIVE (NEGATIVE); URINE LEUK ESTERASE 1+ (NEGATIVE); URINE NITRITE NEGATIVE (NEGATIVE); URINE PROTEIN NEGATIVE (NEGATIVE); URINE RBC 10 /uL (0-23.9); URINE WBC 30 /uL (0-25.8)
[2023-11-27 23:27] LABS: ALBUMIN 3.4 g/dl (3.4-5.0); BLOOD UREA NITROGEN 8.1 mg/dL (7-18); CALCIUM 9.3 mg/dL (8.5-10.1)
[2023-11-27 23:30] LABS: CREATININE 0.9 mg/dL (0.55-1.3)
[2023-11-27 23:32] LABS: BILIRUBIN,TOTAL 0.4 mg/dL (0.2-1)
[2023-11-28 00:21] LABS: POTASSIUM 5.6 mmol/L (3.5-5.1)
[2023-11-28 00:54] VITALS: BP 126/71; PULSE 74; TEMP 98.9
[2023-11-28] MEDS ORDERED: CEPHALEXIN MONOHYDRATE 500 MG CAPSULE (UD) ONE (01:28)
[2023-11-28] MEDS: CEPHALEXIN MONOHYDRATE 500 MG CAPSULE (UD) PO ONE (01:33)
== END 2023-11-28 01:40 | disposition home or self-care (01) ==
LOC: JER 21:38
DX: R42 Dizziness and giddiness (principal); R11.0 Nausea; R53.1 Weakness; R30.0 Dysuria
CPT/HCPCS: 36415; 80053; 81003; 82962; 84703; 85025; 87086; 93005; 93010; 99284-25

== ENCOUNTER 2024-01-27 05:07 | Emergency (ER) | payer OTHER ==
[2024-01-27 05:15] VITALS: BP 114/76; PULSE 83; RESP 18; TEMP 98.6; BMI 40.7
[2024-01-27] MEDS: MAG HYDROX/AL HYDROX/SIMETH 30 ML UNIT-DOSE CUP PO ONE (05:39)
[2024-01-27] MEDS: LACTATED RINGERS SOLUTION 1000 ML INFUS.BAG IV ONE (05:39)
[2024-01-27] MEDS: ACETAMINOPHEN 1000 MG/100 ML BAG IVPB ONE (05:39)
[2024-01-27] MEDS: FAMOTIDINE 20 MG/50 ML IVPB 20 MG/50 ML MG IVPB ONE (05:40)
[2024-01-27] MEDS: ONDANSETRON 4 MG/2 ML VIAL IVPUSH ONE (05:40)
[2024-01-27] MEDS ORDERED: ACETAMINOPHEN INJECTION 100 ML IVPB ONE (05:46)
[2024-01-27] MEDS ORDERED: MAG HYDROX/AL HYDROX/SIMETH 30 ML UNIT-DOSE CUP ONE (05:47)
[2024-01-27] MEDS ORDERED: FAMOTIDINE 20 MG/50 ML IVPB 20 MG/50 ML MG IVPB ONE (05:47)
[2024-01-27] MEDS ORDERED: ONDANSETRON 4 MG/2 ML VIAL ONE (05:47)
[2024-01-27 06:28] LABS: BASO % 1.4 % (0-2.0); EOS % 1.9 % (0-4.5); HEMATOCRIT 37.9 % (32.4-45.2); HEMOGLOBIN 12.5 GM/dL (10.7-15.3); LYMPH % 25.4 % (8-40); MCH 28.6 pg (25.7-33.7); MEAN CELL VOLUME 86.7 fl (80-96); MEAN PLT VOLUME 7.1 fl (7.5-11.1); MONO % 5.9 % (3.8-10.2); NEUT % 65.4 % (42.8-82.8); PLATELET COUNT 423 10^3/uL (134-434); RBC 4.37 M/mm3 (3.60-5.2); RDW 16.7 % (11.6-15.6); WHITE BLOOD COUNT 13.2 K/mm3 (4.0-10.0)
[2024-01-27 06:49] LABS: POTASSIUM 4.3 mmol/L (3.5-5.1)
[2024-01-27 06:51] LABS: CALCIUM 9.9 mg/dL (8.5-10.1)
[2024-01-27 06:52] LABS: ALBUMIN 3.6 g/dl (3.4-5.0); BLOOD UREA NITROGEN 10.9 mg/dL (7-18); MAGNESIUM 1.8 mg/dL (1.8-2.4)
[2024-01-27 06:55] LABS: CREATININE 0.9 mg/dL (0.55-1.3)
[2024-01-27 06:56] LABS: BILIRUBIN,TOTAL 0.3 mg/dL (0.2-1); TOT PROT 7.1 g/dl (6.4-8.2)
== END 2024-01-27 08:49 | disposition home or self-care (01) ==
LOC: JER 05:07
PROC: 3E033GC Introduction of Other Therapeutic Substance into Peripheral Vein, Percutaneous Approach (ICD-10-PCS; principal; 2024-01-27)
PROC: 3E033GC Introduction of Other Therapeutic Substance into Peripheral Vein, Percutaneous Approach (ICD-10-PCS; 2024-01-27)
PROC: 3E033NZ Introduction of Analgesics, Hypnotics, Sedatives into Peripheral Vein, Percutaneous Approach (ICD-10-PCS; 2024-01-27)
DX: K21.9 Gastro-esophageal reflux disease without esophagitis (principal); R10.13 Epigastric pain; R11.0 Nausea
CPT/HCPCS: 36415; 80053; 83690; 83735; 84703; 85025; 99284-25; J0131

== ENCOUNTER 2024-03-16 08:15 | Emergency (ER) | payer OTHER ==
[2024-03-16 08:24] VITALS: BP 99/69; PULSE 94; RESP 18; TEMP 97.6; BMI 40.7
[2024-03-16] MEDS ORDERED: ALBUTEROL SO4 2.5/IPRATROPIUM 0.5 INH SOL 3 ML VIAL.NEB. NEB ONE (08:52)
== END 2024-03-16 10:17 | disposition home or self-care (01) ==
LOC: JER 08:15
DX: R05.9 Cough, unspecified (principal); R09.81 Nasal congestion; J44.1 Chronic obstructive pulmonary disease with (acute) exacerbation; R06.02 Shortness of breath; R07.89 Other chest pain; J98.8 Other specified respiratory disorders; Z87.891 Personal history of nicotine dependence
CPT/HCPCS: 93005; 93010; 99283-25

== ENCOUNTER 2024-04-03 18:46 | Emergency (ER) | payer OTHER ==
[2024-04-03 18:53] VITALS: BP 118/69; PULSE 90; RESP 18; TEMP 98.8; BMI 40.7
[2024-04-03] MEDS ORDERED: KETOROLAC TROMETHAMINE 30 MG/1 ML VIAL ONE (19:56)
[2024-04-03] MEDS: KETOROLAC TROMETHAMINE 30 MG/1 ML VIAL IM ONE (20:00)
== END 2024-04-03 20:32 | disposition home or self-care (01) ==
LOC: JER 18:46 → JERFT 18:46
PROC: 3E0133Z Introduction of Anti-inflammatory into Subcutaneous Tissue, Percutaneous Approach (ICD-10-PCS; principal; 2024-04-03)
DX: S76.012A Strain of muscle, fascia and tendon of left hip, initial encounter (principal); X50.1XXA Overexertion from prolonged static or awkward postures, initial encounter; Y93.01 Activity, walking, marching and hiking
CPT/HCPCS: 73521-TC-FY; 99284-25

== ENCOUNTER 2024-05-11 05:56 | Emergency (ER) | payer OTHER ==
[2024-05-11 06:01] VITALS: BP 124/71; PULSE 92; RESP 16; TEMP 97.9; BMI 40.7
[2024-05-11] MEDS ORDERED: AZITHROMYCIN 500 MG TABLET ONE (07:07)
[2024-05-11] MEDS: AZITHROMYCIN 250 MG TABLET PO ONE (07:13)
[2024-05-11] MEDS ORDERED: predniSONE 20 MG TABLET (UD) ONE (08:08)
[2024-05-11] MEDS ORDERED: ALBUTEROL SO4 2.5/IPRATROPIUM 0.5 INH SOL 3 ML VIAL.NEB. NEB ONE (08:11)
[2024-05-11] MEDS ORDERED: guaiFENesin/CODEINE 10 ML UNIT-DOSE CUPS ONE (08:11)
[2024-05-11] MEDS: predniSONE 20 MG TABLET (UD) PO ONE (08:18)
[2024-05-11] MEDS: ALBUTEROL SO4 2.5/IPRATROPIUM 0.5 INH SOL 3 ML VIAL.NEB. NEB ONE (08:19)
[2024-05-11] MEDS: guaiFENesin/D-METHORPHAN TAB.ER.12H PO ONE (08:19)
== END 2024-05-11 10:05 | disposition home or self-care (01) ==
LOC: JER 05:56
PROC: 3E0F7GC Introduction of Other Therapeutic Substance into Respiratory Tract, Via Natural or Artificial Opening (ICD-10-PCS; principal; 2024-05-11)
DX: J44.1 Chronic obstructive pulmonary disease with (acute) exacerbation (principal); R07.9 Chest pain, unspecified; R50.9 Fever, unspecified; R06.02 Shortness of breath; Z20.822 Contact with and (suspected) exposure to COVID-19
CPT/HCPCS: 0241U-QW; 71046-TC-FY; 99284-25

== ENCOUNTER 2024-05-13 03:44 | Inpatient (IN) | payer OTHER ==
[2024-05-13] MEDS ORDERED: methylPREDNISolone NA SUCC 125 MG/2 ML VIAL ONE (04:19)
[2024-05-13] MEDS: ALBUTEROL SO4 2.5/IPRATROPIUM 0.5 INH SOL 3 ML VIAL.NEB. NEB SCH ×2 (04:30→12:42)
[2024-05-13] MEDS: methylPREDNISolone NA SUCC 125 MG/2 ML VIAL IVPB ONE (04:37)
[2024-05-13] MEDS: ALBUTEROL SO4 0.083% IH SOL 2.5 MG/3 ML VIAL.NEB. NEB SCH (05:45)
[2024-05-13] MEDS ORDERED: ALBUTEROL SO4 0.083% IH SOL 2.5 MG/3 ML VIAL.NEB. NEB ONE ×2 (06:10→07:03)
[2024-05-13 08:56] LABS: HEMATOCRIT 37.4 % (32.4-45.2); HEMOGLOBIN 12.3 GM/dL (10.7-15.3); MCHC 32.9 g/dl (32.0-36.0); MEAN PLT VOLUME 7.6 fl (7.5-11.1); PLATELET COUNT 376 10^3/uL (134-434); RDW 17.9 % (11.6-15.6); WHITE BLOOD COUNT 12.9 K/mm3 (4.0-10.0)
[2024-05-13 09:08] LABS: CHLORIDE 102 mmol/L (98-107); POTASSIUM 4.3 mmol/L (3.5-5.1); SODIUM 137 mmol/L (136-145)
[2024-05-13 09:10] LABS: CALCIUM 9.5 mg/dL (8.5-10.1)
[2024-05-13 09:11] LABS: ALBUMIN 3.7 g/dl (3.4-5.0); ANION GAP 7 mmol/L (4-13); BLOOD UREA NITROGEN 11.9 mg/dL (7-18); CO2 27 mmol/L (21-32)
[2024-05-13 09:14] LABS: SGOT/AST 13 U/L (15-37); SGPT/ALT 17 U/L (13-61)
[2024-05-13 09:15] LABS: BILIRUBIN,TOTAL 0.2 mg/dL (0.2-1); GLUCOSE,RANDOM 432 mg/dL (74-106); TOT PROT 7.2 g/dl (6.4-8.2)
[2024-05-13 09:17] LABS: ALK PHOS 115 U/L (45-117)
[2024-05-13] MEDS: INSULIN (NOVOLOG) ASPART 100 UNITS/ML 10ML VIAL SQ ONE ×2 (09:46→13:10)
[2024-05-13 10:20] LABS: ANISOCYTOSIS 2+; MACROCYTOSIS 0
[2024-05-13] MEDS ORDERED: ACETAMINOPHEN INJECTION 100 ML ONE (11:16)
[2024-05-13] MEDS: ACETAMINOPHEN 1000 MG/100 ML BAG IVPB ONE (11:28)
[2024-05-13] MEDS ORDERED: MAGNESIUM 1GM/D5W - 1 GM/100 ML IVPB IVPB ONE (12:09)
[2024-05-13] MEDS: MAGNESIUM SULF 50% (8.12 MEQ/2 ML-1 GM VIAL) IVPB ONE (12:16)
[2024-05-13] MEDS ORDERED: ALBUTEROL SO4 2.5/IPRATROPIUM 0.5 INH SOL 3 ML VIAL.NEB. NEB ONE ×3 (12:30→23:10)
[2024-05-13] MEDS ORDERED: GABAPENTIN 300 MG CAPSULE ONE ×2 (12:54→22:34)
[2024-05-13] MEDS: GABAPENTIN 300 MG CAPSULE PO SCH (13:10)
[2024-05-13] MEDS ORDERED: INSULIN (NOVOLOG MIX 70/30) 100 UNITS/ML MDV SQ ONE (17:38)
[2024-05-13] MEDS: INSULIN (NOVOLOG MIX 70/30) 100 UNITS/ML MDV SQ SCH (17:51)
[2024-05-13] MEDS: INSULIN ASPART SLIDING SCALE (NOVOLOG) 1 VIAL SQ SCH (17:52)
[2024-05-13] MEDS ORDERED: HEPARIN NA (PORCINE) 5,000 UNITS/ML 1ML VIAL ONE (22:35)
[2024-05-13] MEDS ORDERED: MELATONIN 5 MG TABLETS ONE (22:35)
[2024-05-13] MEDS ORDERED: ATORVASTATIN CA 10 MG TABLET (FP) ONE (22:35)
[2024-05-13] MEDS ORDERED: MONTELUKAST NA 10 MG TABLET ONE (22:35)
[2024-05-13] MEDS: MONTELUKAST NA 10 MG TABLET PO SCH (22:48)
[2024-05-13] MEDS: ATORVASTATIN CA 10 MG TABLET (FP) PO SCH (22:48)
[2024-05-13] MEDS: RAMIPRIL 2.5 MG CAPSULE PO SCH (22:48)
[2024-05-13] MEDS: HEPARIN NA (PORCINE) 5,000 UNITS/ML 1ML VIAL SQ SCH (22:48)
[2024-05-13] MEDS: MELATONIN 5 MG TABLETS PO SCH (22:48)
[2024-05-13] MEDS: ARIPiprazole 15 MG TABLET PO SCH (22:48)
[2024-05-13] MEDS: BUDESONIDE/FORMETEROL FUMARATE 160/4.5 mcg INHALER IH SCH (23:09)
[2024-05-13] MEDS ORDERED: INSULIN ASPART SLIDING SCALE (NOVOLOG) 1 VIAL SQ ONE (23:11)
[2024-05-14 01:54] VITALS: BMI 40.5
[2024-05-14] MEDS: glipiZIDE-XL 5 MG TAB.ER.24 PO SCH (06:35)
[2024-05-14 09:00] LABS: BASO % 0.5 % (0-2.0); EOS % 0.2 % (0-4.5); HEMATOCRIT 38.3 % (32.4-45.2); HEMOGLOBIN 12.2 GM/dL (10.7-15.3); LYMPH % 21.5 % (8-40); MCH 27.3 pg (25.7-33.7); MCHC 31.7 g/dl (32.0-36.0); MEAN CELL VOLUME 86.1 fl (80-96); MEAN PLT VOLUME 7.5 fl (7.5-11.1); MONO % 6.3 % (3.8-10.2); NEUT % 71.5 % (42.8-82.8); PLATELET COUNT 389 10^3/uL (134-434); RBC 4.45 M/mm3 (3.60-5.2); RDW 18.3 % (11.6-15.6); WHITE BLOOD COUNT 16.3 K/mm3 (4.0-10.0)
[2024-05-14 09:38] LABS: HDL CHOLESTEROL 73 mg/dL (40-60)
[2024-05-14 09:39] LABS: ALBUMIN 3.3 g/dl (3.4-5.0); BLOOD UREA NITROGEN 15.9 mg/dL (7-18); CALCIUM 9.5 mg/dL (8.5-10.1); CREATININE 0.9 mg/dL (0.55-1.3); TOT PROT 6.8 g/dl (6.4-8.2)
[2024-05-14 09:40] LABS: BILIRUBIN,TOTAL 0.2 mg/dL (0.2-1); CHOLESTEROL 166 mg/dL (50-200); LDL CHOLESTEROL (ONLY SJRH) 80 mg/dL (5-100)
[2024-05-14] MEDS: FAMOTIDINE 20 MG TABLET PO SCH (10:43)
[2024-05-14] MEDS: PANTOPRAZOLE 40 MG TABLET PO SCH (10:44)
[2024-05-14] MEDS: AZITHROMYCIN IVPB 500 MG/250 ML BAG IVPB SCH (10:52)
[2024-05-14] MEDS: ACETAMINOPHEN 325 MG TABLET (FP) PO PRN (11:21)
[2024-05-14] MEDS: methylPREDNISolone NA SUCC 40 MG/1 ML VIAL IVPB SCH ×2 (12:23→23:42)
[2024-05-14] MEDS ORDERED: INSULIN (NOVOLOG MIX 70/30) 100 UNITS/ML MDV SQ ONE (16:52)
[2024-05-14] MEDS ORDERED: INSULIN (NOVOLOG MIX 70/30) 100 UNITS/ML MDV SQ SCH (22:52)
[2024-05-15] MEDS: methylPREDNISolone NA SUCC 40 MG/1 ML VIAL IVPB SCH (01:54)
[2024-05-15] MEDS: INSULIN (NOVOLOG MIX 70/30) 100 UNITS/ML MDV SQ SCH (06:10)
[2024-05-15] MEDS: ALBUTEROL SO4 2.5/IPRATROPIUM 0.5 INH SOL 3 ML VIAL.NEB. NEB SCH (07:49)
[2024-05-15] MEDS ORDERED: ALBUTEROL SO4 2.5/IPRATROPIUM 0.5 INH SOL 3 ML VIAL.NEB. NEB PRN (13:02)
[2024-05-15] MEDS: NICOTINE 14 MG/24 HOURS TOPICAL PATCH TD SCH (13:46)
[2024-05-16 09:08] LABS: HEMATOCRIT 36.2 % (32.4-45.2); HEMOGLOBIN 11.8 GM/dL (10.7-15.3); MCH 27.5 pg (25.7-33.7); MCHC 32.5 g/dl (32.0-36.0); MEAN CELL VOLUME 84.7 fl (80-96); MEAN PLT VOLUME 7.4 fl (7.5-11.1); PLATELET COUNT 386 10^3/uL (134-434); RBC 4.28 M/mm3 (3.60-5.2); RDW 18.2 % (11.6-15.6); WHITE BLOOD COUNT 21.2 K/mm3 (4.0-10.0)
[2024-05-16 09:28] LABS: POTASSIUM 3.9 mmol/L (3.5-5.1)
[2024-05-16 09:36] LABS: CALCIUM 9.5 mg/dL (8.5-10.1)
[2024-05-16 09:37] LABS: ALBUMIN 3.3 g/dl (3.4-5.0); BLOOD UREA NITROGEN 20.2 mg/dL (7-18)
[2024-05-16 09:39] LABS: CREATININE 0.9 mg/dL (0.55-1.3)
[2024-05-16 09:41] LABS: BILIRUBIN,TOTAL 0.4 mg/dL (0.2-1)
[2024-05-16 09:42] LABS: TOT PROT 6.7 g/dl (6.4-8.2)
[2024-05-16 10:27] LABS: ANISOCYTOSIS 2+; MACROCYTOSIS 0
[2024-05-16 13:56] VITALS: RESP 18
[2024-05-16] MEDS: BETHANECHOL CHLORIDE 25 MG TABLET PO SCH (14:25)
[2024-05-16] MEDS ORDERED: INSULIN ASPART SLIDING SCALE (NOVOLOG) 1 VIAL SQ ONE (21:14)
[2024-05-17] MEDS ORDERED: INSULIN ASPART SLIDING SCALE (NOVOLOG) 1 VIAL SQ ONE ×3 (10:53→17:11)
[2024-05-17] MEDS ORDERED: INSULIN (NOVOLOG MIX 70/30) 100 UNITS/ML MDV SQ ONE (10:53)
[2024-05-17] MEDS: INSULIN (LEVEMIR) 100 UNITS/ML UNITS SQ SCH (12:40)
[2024-05-17] MEDS: INSULIN (NOVOLOG MIX 70/30) 100 UNITS/ML MDV SQ SCH (17:13)
[2024-05-17] MEDS: methylPREDNISolone NA SUCC 40 MG/1 ML VIAL IVPB SCH (21:14)
[2024-05-18 10:21] LABS: BASO % 0.3 % (0-2.0); HEMATOCRIT 36.3 % (32.4-45.2); HEMOGLOBIN 11.5 GM/dL (10.7-15.3); LYMPH % 15.8 % (8-40); MCH 27.4 pg (25.7-33.7); MCHC 31.8 g/dl (32.0-36.0); MEAN CELL VOLUME 86.4 fl (80-96); MEAN PLT VOLUME 7.8 fl (7.5-11.1); MONO % 5.8 % (3.8-10.2); NEUT % 78.1 % (42.8-82.8); PLATELET COUNT 394 10^3/uL (134-434); RDW 17.7 % (11.6-15.6); WHITE BLOOD COUNT 18.4 K/mm3 (4.0-10.0)
[2024-05-18 12:15] LABS: POTASSIUM 4.4 mmol/L (3.5-5.1)
[2024-05-18 12:23] LABS: ALBUMIN 3.2 g/dl (3.4-5.0); BLOOD UREA NITROGEN 17.6 mg/dL (7-18); CALCIUM 9.1 mg/dL (8.5-10.1)
[2024-05-18 12:27] LABS: CREATININE 1.1 mg/dL (0.55-1.3)
[2024-05-18 12:28] LABS: BILIRUBIN,TOTAL 0.3 mg/dL (0.2-1); TOT PROT 6.5 g/dl (6.4-8.2)
[2024-05-18] MEDS ORDERED: INSULIN ASPART SLIDING SCALE (NOVOLOG) 1 VIAL SQ ONE (16:52)
[2024-05-18] MEDS: INSULIN ASPART SLIDING SCALE (NOVOLOG) 1 VIAL SQ SCH (16:54)
[2024-05-18] MEDS ORDERED: predniSONE 20 MG TABLET (UD) PO SCH (22:00)
[2024-05-18] MEDS: methylPREDNISolone NA SUCC 40 MG/1 ML VIAL IVPUSH SCH (22:05)
[2024-05-19] MEDS: INSULIN (LEVEMIR) 100 UNITS/ML UNITS SQ SCH (06:01)
[2024-05-19 06:20] VITALS: TEMP 97.7
[2024-05-19] MEDS ORDERED: INSULIN (LEVEMIR) 100 UNITS/ML UNITS SQ SCH (10:57)
[2024-05-19] MEDS ORDERED: INSULIN ASPART SLIDING SCALE (NOVOLOG) 1 VIAL SQ ONE ×2 (11:20→16:28)
[2024-05-19 14:19] VITALS: BP 107/69; PULSE 97
== END 2024-05-19 19:06 | disposition home or self-care (01) | DRG 192 ==
LOC: JER 03:44 → JERBED 10:26 → OBSVTOIN 11:20 → J6S 05-14 00:51
PROVIDERS: ADMIT Internal Medicine; ATTEND Internal Medicine
DX: J44.1 Chronic obstructive pulmonary disease with (acute) exacerbation (principal); F25.9 Schizoaffective disorder, unspecified; F17.200 Nicotine dependence, unspecified, uncomplicated; E11.65 Type 2 diabetes mellitus with hyperglycemia; F41.9 Anxiety disorder, unspecified; F32.A Depression, unspecified
CPT/HCPCS: 0241U-QW; 36415; 71046-TC-FY; 80053; 80061; 82962; 83036; 84443; 84484; 84703; 85025; 93005; 93010; 94640; 99285-25; G0378; J0131; J1644